=== PATIENT | female | born 1930 | race Caucasian/White ===

== ENCOUNTER 2016-03-23 13:14 | Emergency (ER) | payer MEDICARE ==
[2016-03-23 13:46] VITALS: BP 104/41
--- NOTE | 2016-03-23 14:40 | RAD ---
HISTORY: Fall, right hip pain COMPARISONS: None VIEWS: 3, Frontal view of the pelvis with frontal and frog-leg views of the right hip FINDINGS: BONE DENSITY: There is diffuse osteopenia. BONES: There is no displaced fracture. JOINTS: There is moderate osteoporosis of the right hip. There is mild osteophytosis of the left hip. ALIGNMENT: There is no dislocation. SOFT TISSUES: Unremarkable. OTHER FINDINGS: Degenerative changes are noted of the spine IMPRESSION: OSTEOARTHRITIS. NO RADIOGRAPHIC EVIDENCE FOR HIP FRACTURE. X-RAYS MAY BE NEGATIVE WITH NONDISPLACED HIP FRACTURE, IF THERE IS PERSISTENT CLINICAL CONCERN, RECOMMEND CONSIDERATION OF MRI. IN THE SETTING OF CONTRAINDICATION TO MRI OR LIMITATION IN EMERGENT ACCESS TO MRI, CT WOULD BE SUGGESTED.
--- NOTE | 2016-03-23 14:41 | RAD ---
HISTORY: Fall, pain COMPARISONS: June 17, 2007, CT dated December 22, 2015 VIEWS:1: Single frontal portable view of the chest at 2:15 PM FINDINGS: LINES AND TUBES: None. CARDIOMEDIASTINAL SILHOUETTE: The cardiomediastinal silhouette is normal for portable technique. PLEURA: The costophrenic angles are sharp. No pleural abnormalities are noted. LUNG PARENCHYMA: The lungs are clear. ABDOMEN: Again noted is a large hiatal hernia. BONES AND SOFT TISSUES: No bone or soft tissue abnormalities are noted. IMPRESSION: HIATAL HERNIA. NO ACTIVE CARDIOPULMONARY DISEASE.
--- NOTE | 2016-03-23 14:48 | RAD ---
HISTORY: Fall, right shoulder pain COMPARISONS: None VIEWS: 3], Frontal internal rotation, external rotation, and outlet views of the right shoulder FINDINGS: BONE DENSITY: There is diffuse osteopenia. BONES: There is no displaced fracture. JOINTS: There is osteoarthritis of the AC joint. There is partial effacement of the acromiohumeral interval ALIGNMENT: There is no dislocation. SOFT TISSUES: Unremarkable. OTHER FINDINGS: None. IMPRESSION: 1. OSTEOPENIA. 2. OSTEOARTHRITIS. 3. PARTIAL EFFACEMENT OF THE ACROMIOHUMERAL INTERVAL SUGGESTIVE OF A CHRONIC ROTATOR CUFF INJURY. 4. NO ACUTE OSSEOUS INJURY. THE DEGREE OF OSTEOPENIA MAY MAKE A NONDISPLACED FRACTURE RADIOGRAPHICALLY OCCULT. IF SYMPTOMS PERSIST, RECOMMEND REPEAT IMAGING.
[2016-03-23 15:34] LABS: Hematocrit 37 % (35-47); Mean Corpuscular HGB Conc 33 g/dl (31-36); Mean Corpuscular Hemoglobin 33 pg (27-31); Mean Corpuscular Volume 101 fL (80-97); Mean Platelet Volume 9 um3 (7.4-10.4); Red Blood Count 3.62 10^6/ul (4.0-5.4); Red Cell Distribution Width 13 % (10.5-15); White Blood Count 13.3 10^3/ul (3.5-10.8)
[2016-03-23 15:37] LABS: Urine Bilirubin Negative (Negative); Urine Glucose Negative (Negative); Urine Nitrite Negative (Negative)
--- NOTE | 2016-03-23 15:44 | RAD ---
Indication: RIGHT hip pain post fall. Assess for fracture. Comparison: March 23, 2016 radiographs and July 01, 2015 CT. Technique: Noncontrast CT pelvis. Multiplanar reformation. Report: Loculated hematoma within the subcutaneous tissue plane peripheral to the RIGHT proximal femur measuring up to 8.1 cm AP by 4.0 cm transverse by 9 cm cephalocaudal. Surrounding infiltrative edema or hematoma within the lateral and posterior RIGHT thigh. No additional soft tissue hematoma evident within the [id number]. The RIGHT hip is normally located and without evidence for proximal femur or acetabular fracture. Severe axial joint space narrowing of the RIGHT hip with associated subchondral sclerosis and cystic change as well as marginal osteophytosis. Negative for pelvic fracture or joint diastases. Severe diverticulosis of the visualized colon. Peripheral arterial calcifications. No acute abnormality of the visualized pelvic viscera. IMPRESSION: 1. No CT evidence for RIGHT hip or pelvic fracture. If there is persistent high clinical index of suspicion for occult fracture despite negative CT and radiographs consider MRI for further assessment. 2. Loculated hematoma within the subcutaneous tissue plane peripheral to the RIGHT proximal femur measuring up to 8.1 cm AP by 4.0 cm transverse by 9 cm cephalocaudal. 3. Advanced osteoarthritis of the RIGHT hip.
[2016-03-23 15:52] LABS: Troponin I 0.01 ng/mL (<0.04)
[2016-03-23] MEDS ORDERED: Acetaminophen TAB* 325 MG PO ONE (15:55)
[2016-03-23 15:57] LABS: Albumin 3.5 g/dL (3.2-5.2); Calcium 9.3 mg/dL (8.6-10.3); EGFR African American 61.9 (>60); EGFR Non-African American 48.1 (>60); Globulin 2.4 g/dL (2-4); Potassium 3.7 mmol/L (3.5-5.0); Total Bilirubin 0.5 mg/dL (0.2-1.0); Total Protein 5.9 g/dL (6.4-8.9)
--- NOTE | 2016-03-23 17:10 | ED ---
Rigoberto Abarca Adam, scribed for Donny Dean MD on 03/23/16 at 1346 . Adult Trauma - HPI Summary HPI Summary: She states that she slipped on the ice and fell down 6 steps. She c/o soreness in her right hip and right shoulder. Movement aggravates the pain. She denies LOC and denies head/neck pain. PMHx of HTN and breast cancer. Former tobacco user. - History of Current Complaint Stated Complaint: FALL/RT HIP PAIN Time Seen by Provider: 03/23/16 13:42 Hx Obtained From: Patient Mechanism of Injury: Fall Ambulatory at the Scene: Yes Loss of Consciousness: no loss of consciousness Onset/Duration: Started Hours Ago Onset of Pain: Immediate Onset Severity: Moderate Current Severity: Moderate Location: Abdomen/Pelvis - Right hip, Extremities - Right shoulder Aggravating Factor(s): Movement Alleviating Factor(s): Nothing Associated Signs & Symptoms: Negative: Loss of Consciousness - Allergy/Home Medications Allergies/Adverse Reactions: Allergies Allergy/AdvReac Type Severity Reaction Status Date / Time Lactose Allergy GI Upset Verified 07/01/15 09:10 Sulfa Antibiotics Allergy Swelling Verified 07/01/15 09:10 Of Face,Lips,& Throat PMH/Surg Hx/FS Hx/Imm Hx Endocrine/Hematology History: Denies: Hx Diabetes Cardiovascular History: Reports: Hx Hypertension - on medication, Other Cardiovascular Problems/Disorders - HX CAROTID PROBLEM IN THE PAST, UNSURE WHAT , OK SINCE Denies: Hx Congestive Heart Failure GI History: Reports: Other GI Disorders - LACTOSE ISSUES, RESTRICTED ESOPHAGUS, HX DIVERTICULITIS History: Denies: Hx Dialysis, Hx Kidney Stones, Hx Renal Disease Sensory History: Reports: Hx Cataracts - [facility], Hx Contacts or Glasses, Hx Hearing Aid - [facility] Opthamlomology History: Reports: Hx Cataracts - [facility], Hx Contacts or Glasses - Cancer History Cancer Type, Location and Year: left breast 2002 Hx Chemotherapy: Yes - Hx of radiation and Tamoxifin Hx Radiation Therapy: Yes - BREAST - Surgical History Surgery Procedure, Year, and Place: LEFT BREAST CA LUMPECTOMY, 2002, [facility]. VERICOSE VEINS BILAT, 1996 AND 2001. APPENDECTOMY 1934. [facility] HERNIA 1973. [facility] CATARACTS, 2003. Tonsillectomy - 193; double hernia (right side) 2014 Hx Anesthesia Reactions: No Infectious Disease History: Denies: Traveled Outside the [place] in Last 30 Days - Family History Known Family History: Positive: Other - Breast Cancer - Social History Occupation: Retired Lives: Alone Alcohol Use: Daily Alcohol Amount: 2 DAILY Hx Substance Use: No Substance Use Type: Reports: None Hx Tobacco Use: Yes Smoking Status (MU): Former Smoker Amount Used/How Often: PACK A DAY Have You Smoked in the Last Year: No Review of Systems Positive: Arthralgia - Right hip, right shoulder Negative: Headache, Syncope All Other Systems Reviewed And Are Negative: Yes Physical Exam - Summary Physical Exam Summary: VITAL SIGNS: Reviewed. GENERAL: Patient is a well developed and nourished fragile female who is lying comfortable in the stretcher. Patient is not in any acute respiratory distress. HEAD AND FACE: No signs of trauma. No ecchymosis, hematomas or skull depressions. No sinus tenderness. EYES: PERRLA, EOMI x 2, No injected conjunctiva, no nystagmus. EARS: Hearing grossly intact. Ear canals and tympanic membranes are within normal limits. MOUTH: Oropharynx within normal limits. NECK: Supple, trachea is midline, no adenopathy, no JVD, no carotid bruit, no c- spine tenderness, neck with full ROM. CHEST: Symmetric, no tenderness at palpation LUNGS: Clear to auscultation bilaterally. No wheezing or crackles. CVS: Regular rate and rhythm, S1 and S2 present, no murmurs or gallops appreciated. ABDOMEN: Soft, non-tender. No signs of distention. No rebound no guarding, and no masses palpated. Bowel sounds are normal. EXTREMITIES: Decrease ROM of rihgt hip secondary to pain. No deformity, no shortening of the hip. Right shoulder w/o a deformity of the joint. FROM. NEURO: Alert and oriented x 3. No acute neurological deficits. Speech is normal and follows commands. SKIN: Dry and warm Triage Information Reviewed: Yes Vital Signs On Initial Exam: Initial Vitals BP 104/41 03/23/16 13:33 Vital Signs Reviewed: Yes Diagnostics - Vital Signs Vital Signs Temp Pulse Resp BP Pulse Ox 03/23/16 13:41 99.0 F 77 20 104/41 97 03/23/16 13:39 80 96 03/23/16 13:33 104/41 - Laboratory Result Diagrams: 03/23/16 15:20 03/23/16 15:20 Lab Statement: Any lab studies that have been ordered have been reviewed, and results considered in the medical decision making process. - Radiology HIP/PELVIS Radiology Interpretation Completed By: Radiologist - IMPRESSION: OSTEOARTHRITIS. NO RADIOGRAPHIC EVIDENCE FOR HIP FRACTURE. X-RAYS MAY BE NEGATIVE WITH NONDISPLACED HIP FRACTURE, IF THERE IS PERSISTENT CLINICAL CONCERN , RECOMMEND CONSIDERATION OF MRI. IN THE SETTING OF CONTRAINDICATION TO MRI OR LIMITATION IN EMERGENT ACCESS TO MRI, CT WOULD BE SUGGESTED. CXR Radiology Interpretation Completed By: Radiologist - IMPRESSION: HIATAL HERNIA. NO ACTIVE CARDIOPULMONARY DISEASE. SHOULDER Radiology Interpretation Completed By: Radiologist - IMPRESSION: 1. OSTEOPENIA. 2. OSTEOARTHRITIS. 3. PARTIAL EFFACEMENT OF THE ACROMIOHUMERAL INTERVAL SUGGESTIVE OF A CHRONIC ROTATOR CUFF INJURY. 4. NO ACUTE OSSEOUS INJURY. THE DEGREE OF OSTEOPENIA MAY MAKE A NONDISPLACED FRACTURE RADIOGRAPHICALLY OCCULT. IF SYMPTOMS PERSIST, RECOMMEND REPEAT IMAGING. - CT LOWER EXTREMITY CT Interpretation Completed By: Radiologist - IMPRESSION: 1. No CT evidence for RIGHT hip or pelvic fracture. If there is persistent high clinical index of suspicion for occult fracture despite negative CT and radiographs consider MRI for further assessment. 2. Loculated hematoma within the subcutaneous tissue plane peripheral to the RIGHT proximal femur measuring up to 8.1 cm AP by 4.0 cm transverse by 9 cm cephalocaudal. 3. Advanced osteoarthritis of the RIGHT hip. - EKG 16:08 Cardiac Rate: NL - 71 BPM EKG Rhythm: Sinus Rhythm EKG Interpretation: No ST elevation - Additional Comments Diagnostic Additional Comments: Troponin I - 0.01 Adult Trauma Course/Dx - Course Assessment/Plan: She states that she slipped on the ice and fell down 6 steps. She c/o soreness in her right hip and right shoulder. Movement aggravates the pain. She denies LOC and denies head/neck pain. No trauma to the head or neck. Right shoulder x-ray impression: No acute osseous injury. Right hip x-ray impression: No acute fracture or dislocation. Since patient still with pain therefore I will order a CT of the hip. Hip CT impression shows no evidence of right hip or pelvic fracture. Blood work wnl except for increased WBCs of 13.3 , increase BUN and creatinine and UA shows no UTI. Patient is ambulating in the ED and has only mild pain in the right shoulder. I discussed all my findings and test results with the patient. Patient understands and agrees. Patient was instructed to return to the emergency room immediately if any of the symptoms return or worsens. Patient understands and agrees. Plan of care was discussed with the patient and patient understands and agrees with the plan of care. All questions were answered at patient satisfaction. There were no further complaints or concerns. Patient was instructed to follow up with primary care physician within 3 to 5 days. Patient is hemodynamically stable. Patient is alert and oriented x 3. No acute neurological deficits. - Diagnoses Differential Diagnosis/HQI/PQRI: Positive: Contusion(s), Fracture, Dislocation, Sprain, Strain Provider Diagnoses: Hip contusion, Shoulder contusion, Accidental fall Discharge - Discharge Plan Condition: Stable Disposition: HOME Patient Education Materials: Fall Prevention for Older Adults (ED), Contusion in Adults (ED), Hip Contusion (ED) Referrals: Tiffany Bishop MD [Primary Care Provider] - Additional Instructions: Follow up with Dr. Bishop. The documentation as recorded by the Rigoberto ferrer Adam accurately reflects the service I personally performed and the decisions made by me, Donny Dean MD.
== END 2016-03-23 17:46 | disposition home or self-care (01) ==
LOC: ED 13:14
DX: S70.00XA Contusion of unspecified hip, initial encounter (principal); S40.019A Contusion of unspecified shoulder, initial encounter; M25.551 Pain in right hip; W10.9XXA Fall (on) (from) unspecified stairs and steps, initial encounter; Y93.9 Activity, unspecified; Y92.9 Unspecified place or not applicable; Y99.9 Unspecified external cause status; M85.811 Other specified disorders of bone density and structure, right shoulder; K44.9 Diaphragmatic hernia without obstruction or gangrene; M16.11 Unilateral primary osteoarthritis, right hip
CPT/HCPCS: 36415; 71010; 80053; 81003; 84484; 85025; 93005; 99283

== ENCOUNTER 2016-09-15 06:00 | Inpatient (IN) | payer MEDICARE ==
--- NOTE | 2016-09-08 01:54 | HP ---
PREOPERATIVE HISTORY AND PHYSICAL: DATE OF ADMISSION/SURGERY: 09/15/16 DATE OF OFFICE VISIT: 09/06/16. ATTENDING SURGEON: Tommy Llanos MD. PROCEDURE: Right total shoulder reverse. CHIEF COMPLAINT: Right shoulder pain. HISTORY OF PRESENT ILLNESS: Kalani is an 86-year-old female who presents to clinic with ongoing right shoulder pain due to severe osteoarthritis and massive rotator cuff tear. The patient has failed conservative measures and therefore agreed to undergo a right total shoulder reverse by Dr. Llanos on ____ __ 09/15/16. PAST MEDICAL HISTORY: 1. Agarophobia. 2. Hypertension. 3. GERD. 4. Diverticulosis. 5. Hiatal hernia. 6. Osteoarthritis. 7. Peripheral vascular disease. 8. History of breast cancer treated with radiation and tamoxifen. She is in remission. 9. Overactive bladder. 10. Anxiety. 11. Depression. 12. Fibromuscular dysplasia. 13. History of left wrist fracture. PAST SURGICAL HISTORY: Tonsillectomy and adenoidectomy, inguinal hernia repair bilaterally, superficial vein repair, left breast lumpectomy, cataract removal. The patient denies prior complications with anesthesia. MEDICATIONS: 1. Metoprolol succinate ER 25 mg take one half by mouth everyday. 2. Singulair 10 mg one by mouth everyday. 3. Hydrochlorothiazide 25 mg two by mouth everyday. 4. Lisinopril 10 mg one by mouth everyday. 5. Omeprazole 20 mg one by mouth everyday. 6. Aspirin 81 mg one by mouth everyday. 7. Centrum silver adult 50 one by mouth everyday. 8. Cilostazol 50 mg one daily. ALLERGIES: BACTRIM and SULFA ANTIBIOTICS. FAMILY HISTORY: She denies pertinent family history. 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 She is a former smoker, quit in 1996. She reports occasional alcohol consumption. She denies illegal drug use. REVIEW OF SYSTEMS: General: Negative for fever, chills, night sweats. No known anesthesia problems. HEENT: Negative for headache, lightheadedness, or syncopal episodes. Integumentary: Negative for abrasions, lesions, or open wounds. Cardiothoracic: Negative for chest pain, palpitations, or edema. Positive for hypertension. Pulmonary: Negative for shortness of breath with exertion, chronic cough or COPD. GI: Negative for nausea, vomiting, diarrhea, or constipation. Positive for GERD. : Negative for nocturia, urinary frequency, history of UTI or kidney problems. Musculoskeletal: Positive for current complaint. Neuro: Negative for numbness, tingling, or history of seizure, stroke, or epilepsy. Endocrine: Negative for diabetes or thyroid issues. Heme: Negative for easy bruising, history of bleeding disorder, history of DVT or PE. Infectious Disease: Negative for history of MRSA, hep C, or HIV. PHYSICAL EXAMINATION GENERAL: Well-developed, well-nourished, 86-year-old female in no acute distress. Alert and oriented x3 with appropriate mood and affect. VITALS: Height 64.5, weight 121, blood pressure 124/82, respiratory rate 14. Pain level 3. BMI 20.4. HEENT: Normocephalic, atraumatic. Throat clear. NECK: Supple. PULMONARY: Lungs are clear to auscultation bilaterally. No wheezes, rhonchi or rales. CARDIO: Regular rate and rhythm. S1 and S2. No murmurs, gallops or rubs. No edema. ABDOMEN: Positive bowel sounds, soft, nontender. MUSCULOSKELETAL: Right upper extremity: Skin is intact. No warmth or erythema. Tenderness above the joint line. Forward flexion to 40, abduction to 50, external rotation to 20. +2 radial pulses. +2 ulnar pulses. Sensation is intact to light touch distally. NEUROLOGIC: Alert and oriented x3. Cranial nerves grossly intact. Sensation is intact to light touch. STUDIES: Multiple view x-rays and MRI of the right shoulder revealed osteopenia, full-thickness massive rotator cuff tear, superior migration of the humeral head, and severe glenohumeral joint osteoarthritis. IMPRESSION: Right shoulder severe osteoarthritis and massive rotator cuff tear. PLAN: The patient is scheduled to undergo a right total reverse with Dr. Llanos on 09/15/16. The patient has been cleared by her chuck boner. She will return to the office in 10 to 14 days postop for followup and x-rays. Percocet was prescribed for postop pain management. LAUREN AMIN [id number]/[facility] #: [id number] [facility]
[~2016-09-15 06:00] MED LIST: Buffered Lidocaine 0.9% SYRIN* 5 ML/SYR SYRINGE INTRADERM ONE; Buffered Lidocaine 0.9% SYRIN* 5 ML/SYR SYRINGE ONE; Dexamethasone IV* 4 MG/ML 1 ML (4 MG) IV SLOW PU ONE; Dexamethasone IV* 4 MG/ML 1 ML (4 MG) ONE; Famotidine IV* 10 MG/ML 2 ML (20 mg) IV ONE; Famotidine IV* 10 MG/ML 2 ML (20 mg) ONE; ceFAZolin 2 GM PREMIX(*) 2 GM/50 ML BAG IVPB ONE
[2016-09-15] MEDS ORDERED: Succinylcholine* 20 MG/ML 10 ML VIAL ONE (07:18)
[2016-09-15] MEDS ORDERED: Lidocaine 1% INJ* 10 MG/ML 30 ML SDV ONE ×2 (07:18→08:08)
[2016-09-15] MEDS ORDERED: KETAMINE HCL* 50 MG/ML 10 ML VIAL ONE (07:24)
[2016-09-15] MEDS ORDERED: Bupivacaine 0.25% EPI 200,000* 30 ML SDV ONE (08:08)
[2016-09-15] MEDS ORDERED: Phenylephrine IV* 40 MCG/ML 10 ML SYRINGE ONE (09:00)
[2016-09-15] MEDS ORDERED: Ondansetron INJ* 2 MG/ML VIAL ONE (09:00)
[2016-09-15] MEDS ORDERED: Propofol* 10 MG/ML 20 ML BTL IV PUSH ONE (09:00)
[2016-09-15] MEDS ORDERED: DiMENhydriNATE IV* 50 MG/ML VIAL IV PUSH PRN (09:19)
[2016-09-15] MEDS ORDERED: Rocuronium* 10 MG/ML VIAL ONE (09:22)
[2016-09-15] MEDS ORDERED: Ketorolac INJ* 30 MG/ML 1 ML VIAL ONE (09:45)
[2016-09-15] MEDS ORDERED: Neostigmine Methylsulfate* 2 MG/2 ML SYRINGE ONE (09:48)
[2016-09-15] MEDS ORDERED: Glycopyrrolate IV* 0.2 MG/ML 1 ML VIAL ONE (09:48)
[2016-09-15] MEDS ORDERED: HYDROmorphone* 1 MG/ML 1 ML SYR ONE ×2 (09:50→10:46)
[2016-09-15] MEDS ORDERED: Acetaminophen TAB* 325 MG PO PRN (10:39)
[2016-09-15] MEDS ORDERED: Ondansetron INJ* 2 MG/ML VIAL IV PRN ×2 (10:39→10:44)
[2016-09-15] MEDS ORDERED: Morphine INJ* 2 MG/ML 1 ML SYRINGE IV PRN (10:39)
[2016-09-15] MEDS ORDERED: oxyCODONE/Acetamin 5/325 MG* TAB PO PRN ×2 (10:39)
[2016-09-15] MEDS ORDERED: diPHENhydraMINE IV* 50 MG/ML 1 ml VIAL (BENADRYL) IV PRN (10:39)
[2016-09-15] MEDS ORDERED: oxyCODONE TAB* 5 MG TAB PO PRN (10:39)
[2016-09-15] MEDS ORDERED: Polyethylene Glycol 3350* 17 GM PACKET PO PRN (10:39)
[2016-09-15] MEDS ORDERED: fentaNYL* 50 MCG/ML 2 ML VIAL (100 MCG VIAL) ONE (10:46)
[2016-09-15] MEDS: fentaNYL* 50 MCG/ML 2 ML VIAL (100 MCG VIAL) IV PRN ×3 (10:56→11:51)
[2016-09-15] MEDS: HYDROmorphone* 1 MG/ML 1 ML SYR IV PRN ×2 (11:44→12:12)
--- NOTE | 2016-09-15 12:25 | RAD ---
INDICATION: Right shoulder reverse arthroplasty COMPARISON: March 23, 2016 TECHNIQUE: Routine frontal, and axial views were obtained. FINDINGS: There is reversed right shoulder arthroplasty. The prosthetic components appear well seated. As a cooling jacket in place. IMPRESSION: REVERSED RIGHT SHOULDER ARTHROPLASTY
--- NOTE | 2016-09-15 14:27 | OP ---
CC: PCP, Tiffany Bishop MD * DATE OF OPERATION: 09/15/16 - ROOM #337 DATE OF : 28 SURGEON: Tommy Llanos MD ASSISTANTS: behavioral health assistant: LAUREN Mancilla Second permit review assistant: LAUREN Maynard ANESTHESIOLOGIST: Dr. Sebastian Alcaraz. ANESTHESIA: General. 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 OPERATIVE PROCEDURE: Right shoulder reverse shoulder arthroplasty with open biceps tenodesis. CPT code 95414 and 22754. IMPLANTS USED: Aequalis Reversed II centered glenosphere 36 mm, baseplate 25. A 30 x 25 mm threaded baseplate. A size 3B stem, a reverse insert of 6 mm in the centered humeral stem tray. One Josselyn cable, size 2 mm. COMPLICATIONS: Intraoperative humeral fracture. 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 She has failed conservative management including injection as well as physical therapy. At times, she is unable to take care of herself. She lives by herself and is having difficulties with activities of daily living. Therefore she has elected to proceed with right shoulder reverse shoulder arthroplasty. Risks and benefits were discussed at length to include but are not limited to bleeding, infection, damage to nerves, vessels, surrounding structures, the wound not healing, persistent pain, need for further surgery, risk of anesthesia, incomplete release of symptoms, fracture, dislocation, loss of motion, risk of DVT as well as postop hematoma. After obtaining preoperative risk assessment by her doctor, she has elected to proceed with surgery. DESCRIPTION OF PROCEDURE: The patient was greeted in the preoperative area by the attending surgeon. Correct extremity was marked and consent was confirmed. The patient was then brought back to the operative suite where she was placed in the supine position on the operating table. She then underwent general anesthesia endotracheal intubation after which the patient was positioned in the bed appropriately. All bony prominences were padded. She was placed in a lazy beach chair position. The right shoulder was prepped and draped in usual sterile fashion with a chlorhexidine soap and scrub, alcohol wipe, and a final prep with ChloraPrep. After appropriate surgical pause indicating side, site, procedure and administration of antibiotics, the deltopectoral incision was then made using 15 - blade. The soft tissues were carefully dissected to expose the fat stripe. The cephalic vein was identified and then taken laterally with a deltoid. The deltopectoral groove was explored. The clavipectoral fascia was released and the bursa was identified. The coracoid was identified and a blunt Hohmann was placed superior to that for retraction. The Kolbel was used to retract deltopectoral groove, expose the short head of the biceps as well as the pec insertion, the proximal centimeter was released of the pec tendon and the biceps was tenodesed with heavy nonabsorbable suture. This was tenotomized proximal to that and soft tissue dissection was carried proximally using Metzenbaum scissors to expose the groove and its superior border of the subscap. At this point, the shoulder was gently externally rotated, the circumflex vessels were identified, then suture ligated using a 2-0 Vicryl. Then, carefully in one large sheath the subscap was released using a subscap peel technique, while with gentle external rotation, it released distally enough to expose the inferior neck and bone, and released the proximal portion of the latissimus. The dissection was close to bone and care was taken to retract the soft tissues to prevent any nerve or vessel injury by using a Sullivan. Once this was released, the shoulder was gently dislocated and brought through the wound. There was evidence of a full thickness massive tear at the humerus. There were grade 1-2 changes of humeral head. The sagittal saw was then used to make the neck cut. Once this was done, the starting awl was placed in the appropriate position. The canal was sounded, it was found to be between a size 2 and a size 3 stem with the guide neena set at 20 degrees of retroversion. At this point, the humeral portion was prepared first with the rasp, beginning with the starting broach and then gradually up to a size 2; initially had an excellent purchase at this point it had good fit. The humerus was then reamed and the protection plate was placed. Attention was then directed to the subscap and glenoid. The humerus was positioned back into the shoulder and subscap was identified. The superior gleno and middle glenohumeral ligaments were then carefully released using electrocautery as well as curved Moody scissors. The inferior glenohumeral ligament was also identified and this was released with care on the undersurface of the subscap using the electrocautery device. This allowed for mobilization of the scapula. The anterior aspect of the gleno was identified and the labrum was then carefully removed. The biceps and superior labrum was also removed using electrocautery device. This was carried down from the 12 o'clock to the 5 o'clock position. At this point, the inferior labrum needed to be released and a needle tip Bovie was used with gentle traction using a Sullivan elevator on the inferior sutures with care to prevent any damage to any neurovascular structures. Once this was released, the full aspect of the glenoid was identified. The Sullivan was then used to remove any excess cartilage from the glenoid. The glenoid was found to be quite small. The shoulder was then irrigated to remove any excess soft tissue. At this point , the 25 mm guide was placed inferiorly in the glenoid. The threaded guidewire was drilled bi-cortically. This was then reamed with the size 25 mm reamer to remove the excess soft tissue and to find a good bony bleeding bed. The size 36 mm angle reamer was then hand-reamed for placement of the glenosphere. Once the reaming was complete, a size 8 mm cannulated drill bit was used to drill the central peg and then size 6.5 mm cannulated drill was then used to drill the screw tunnel. The depth was found to be about 30 mm. This screw hole was then tapped and then the size 30 mm x 25 mm threaded baseplate was then placed with excellent purchase. Two interlocking screws were placed superiorly inferiorly. The anterior and posterior ones were not placed due to relatively thin bone. At this point, the glenosphere was then brought to the field and then packed into position. It was secured using the set screw. At this point, attention was directed back to humerus. The humerus is delivered through the wound and the baseplate was removed and the stem was assessed and found to be somewhat loose. As this was being removed , it was found that there was a small fracture in the medial calcar of the humerus. At this point, decision was made to cable this. The [employer] cable system was then brought in with the implant in place but not fully seated, the cable was tensioned and then secured. The excess posterior wire was then cut. This allowed bahai of the fracture fragment. The size 2 implant was impacted again. It was found to sink somewhat deeper, therefore a size 3 was chosen and then impacted into place gently. The centered tray was used to trial and the standard poly, 6 mm poly was used to trial. The shoulder was then gently reduced and taken through range of motion, she was able to forward flex to about 120, abduct to about 100 degrees, externally rotate to about 50 degrees. These were the same as her preoperative motion. Although her preoperative motion, she was only able to forward flex to about 110 passively. The final implants were chosen, brought to the table. The shoulder was gently dislocated and he implants were removed and secured on the back table by the attending surgeon. The decision was made to not repair the subscapularis due to fracture in the anterior aspect of the bone. The final implants were then impacted into position with good purchase. This shoulder was then reduced again and taken through range of motion, it was found to be the same. The wounds were copiously irrigated with sterile saline and a Hemovac drain was then placed. The subscap was gently placed over the wound but again not repaired. The deltopectoral groove was closed with a #2 Tycron suture. The would was irrigated again. The incision was closed in layers with 2-0 Vicryl and 3-0 Monocryl. Sterile dressings were applied. She was placed in a regular sling. The Cryo/Cuff was applied. She was awoken from anesthesia, transferred to the PACU in stable condition. POSTOPERATIVE PLAN: She will be nonweightbearing for 6 weeks. She will be allowed gentle passive forward flexion to 90 degrees. She will be allowed to flex and extend her elbow, wrist, and hand. She will be admitted overnight for observation as well as to monitor the drain. She will receive 24 hours of postoperative antibiotics. She will receive heparin while inhouse, but she will be discharge without any DVT prophylaxis. DVT prophylaxis was considered, but deferred due to no previous personal or family history. I will see the patient back in approximately 10 to 14 days and we will obtain x-rays in the PACU and we will follow her closely for the intraoperative fracture. [id number]/[facility] #: [id number] [facility] MEDICAL CENTERWilbert
[2016-09-15] MEDS: ceFAZolin VIAL(*) 1 GM in NS 0.9% 50 ML* 50 ML IVPB SCH ×2 (15:51→23:55)
[2016-09-15] MEDS ORDERED: Montelukast Sodium TAB* 10 MG PO SCH (21:00)
--- NOTE | 2016-09-16 06:29 | PN ---
Progress Note - Progress Note Date of Service: 09/16/16 Note: POD#1 from R reverse shoulder arthroplasty. Doing well. Pain controlled. In sling with cryocuff. Alert and awake. Temp Pulse Resp BP Pulse Ox 98.4 F 55 20 142/71 98 09/16/16 03:40 09/16/16 03:40 09/16/16 03:40 09/16/16 03:40 09/16/16 03:40 AAOX3. pleasant. NAD. R shoulder with dressing in place. drain in place. SILT about 1st dws, index and long finger, and ulnar aspect of small finger. 2+ radial pulse. A/P POD#1 from R shoulder reverse doing well NWB and no active ROM for 6 weeks. gentle PT but does not need PT at home cont post op abx dvt ppx - heparin while inhouse but no need for discharge due to no prior history of dvt scds d/c drain prior to discharge. drain output 750 as of this am. will recheck in a few hours to make sure not copious then may d/c potential d/c home today.
[2016-09-16 06:49] LABS: Hematocrit 32 % (35-47); Hemoglobin 10.6 g/dl (12.0-16.0)
[2016-09-16 06:54] LABS: BUN/Creatinine Ratio 23.2 (8-20); EGFR African American 59.2 (>60); Potassium 4.1 mmol/L (3.5-5.0)
[2016-09-16] MEDS: ceFAZolin VIAL(*) 1 GM in NS 0.9% 50 ML* 50 ML IVPB SCH (08:21)
[2016-09-16] MEDS ORDERED: Metoprolol Succinate XL TAB* 25 MG PO SCH (09:00)
[2016-09-16] MEDS ORDERED: Hydrochlorothiazide TAB* 25 MG PO SCH (09:00)
[2016-09-16] MEDS ORDERED: Lisinopril TAB* 10 MG PO SCH (09:00)
[2016-09-16] MEDS ORDERED: Omeprazole CAP* 20 MG PO SCH (09:00)
--- NOTE | 2016-09-16 10:51 | PN ---
Progress Note - Progress Note Date of Service: 09/16/16 Note: Patient seen OOB in chair. Worked with PT /OT and needs a little help with ADLs. Family discussing discharge to home with son or short term rehab. Drain output entered incorrectly, it was 75 cc, not 750cc. The drain was discontinued without complication, tip intact, new tega derm applied. Await final discharge plan.
[2016-09-16] MEDS ORDERED: Enoxaparin(*) 30 MG/0.3 ML SYR SUBCUT SCH (11:00)
--- NOTE | 2016-09-16 13:15 | DS ---
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 SURGERY PERFORMED: Right shoulder reverse shoulder arthroplasty with open biceps tenodesis and cabl ing proximal humerus. HOSPITAL COURSE: Patient is an 86-year-old female with persistent shoulder pain and inability to mo ve her shoulder due to rotator cuff arthropathy. She failed conservative management including corti sone injections and physical therapy and was having difficulty with her activities of daily living. She elected to proceed with surgical intervention and was taken to the operating room under the car e of Dr. Llanos for the aforementioned procedure on the date of 09/15/16. She tolerated the procedu re well and left the operating room in stable condition. Postoperatively, she was seen by Physical Therapy and Occupational Therapy, who felt that she would need some help with her activities of rosa maria y living and would not be able to be independent at home. It was discussed with the patient's famil y that she would be able to live with her son for the postoperative period to help her. She is in a greement to this. She had no postoperative complications. Her drain only collected roughly 75 cc o f blood and was discontinued postoperative day #1 without any complications. Her pain was under exc ellent control and she ambulated well with therapy. It was felt she was stable orthopedically for d ischarge to home with her son, 09/16/16. CONDITION ON DISCHARGE: She is afebrile. Her vital signs are stable. Her neurovascular status is intact in the right upper extremity. Her drain was removed without any complications. Her dressing s are clean and dry. PLAN: Discharge to home. She will continue with the Percocet as needed for pain. The shoulder immo bilizer should be worn at all times except off for bathing, dressing, skin care. Therapy will only be allowed to passively flex the shoulder to 90 degrees, otherwise in the sling. She will follow up with Dr. Llanos in the office in 10 to 14 days for an x-ray. If there are any changes in her condi tion, shortness of breath, chest pain, dizziness, increased pain in the shoulder, redness, drainage from her wound, swelling of the extremity, the office will be contacted prior to her scheduled appoi ntment. LAUREN SAWYER [id number]/[facility] #: [id number]
[2016-09-16 14:43] LABS: Mean Platelet Volume 10 um3 (7.4-10.4)
[2016-09-16 15:26] VITALS: BP 140/90
== END 2016-09-16 17:03 | disposition home or self-care (01) | DRG 483 ==
LOC: AA 06:00 → SSU 10:39
PROVIDERS: ADMIT Orthopaedic Surgery; ATTEND Orthopaedic Surgery
PROC: 0RRJ00Z Replacement of Right Shoulder Joint with Reverse Ball and Socket Synthetic Substitute, Open Approach (ICD-10-PCS; principal; 2016-09-15 07:30)
DX: M19.011 Primary osteoarthritis, right shoulder (principal); I73.9 Peripheral vascular disease, unspecified; I10 Essential (primary) hypertension; M96.622 Fracture of humerus following insertion of orthopedic implant, joint prosthesis, or bone plate, left arm; F40.00 Agoraphobia, unspecified; F32.9 Major depressive disorder, single episode, unspecified; F41.9 Anxiety disorder, unspecified; K21.9 Gastro-esophageal reflux disease without esophagitis; K57.90 Diverticulosis of intestine, part unspecified, without perforation or abscess without bleeding; N32.81 Overactive bladder; R29.818 Other symptoms and signs involving the nervous system; M75.101 Unspecified rotator cuff tear or rupture of right shoulder, not specified as traumatic; Y79.2 Prosthetic and other implants, materials and accessory orthopedic devices associated with adverse incidents; Y65.8 Other specified misadventures during surgical and medical care; Y92.234 Operating room of hospital as the place of occurrence of the external cause; Z98.49 Cataract extraction status, unspecified eye; Z88.1 Allergy status to other antibiotic agents; Z88.2 Allergy status to sulfonamides; Z87.891 Personal history of nicotine dependence; Z85.3 Personal history of malignant neoplasm of breast; Z92.3 Personal history of irradiation
CPT/HCPCS: 36415; 80048; 85014; 85018; 85049; 87070; 87073; 87205; 94760; A9270-GY; C1776; J0330; J0690; J1100; J1170; J1650; J1885; J2001; J2405; J2704; J3010

== ENCOUNTER 2017-01-07 11:02 | Emergency (ER) | payer MEDICARE ==
[2017-01-07 11:20] VITALS: BP 151/53
--- NOTE | 2017-01-07 12:13 | UC ---
Ear Complaint HPI - HPI Summary HPI Summary: PT presents with decreased and muffled right ear. Pt stats mild pressure. pt denies fevers, chills. No trauma. No drainage. pt states feels pressure in ear with chewing, mouth opening. No trauma. Pt's medications reviewed this visit - History of Current Complaint Chief Complaint: UCEar Stated Complaint: EAR COMPLAINT Time Seen by Provider: 01/07/17 11:42 Hx Obtained From: Patient, Family/Traveling Accountant ?: No Onset/Duration: Gradual Onset Severity Initially: Mild Severity Currently: Mild Associated Signs/Symptoms: Positive: Hearing Loss, Foreign Body Sensation - Allergies/Home Medications Allergies/Adverse Reactions: Allergies Allergy/AdvReac Type Severity Reaction Status Date / Time Lactose Allergy GI Upset Verified 01/07/17 12:04 Sulfa Antibiotics Allergy Swelling Verified 01/07/17 12:04 Of Face,Lips,& Throat PMH/Surg Hx/FS Hx/Imm Hx Previously Healthy: Yes Cardiovascular History: Hypertension, Other Other Cardiovascular History: peripheral vascular disease GI/ History: Gastroesophageal Reflux - Surgical History Surgical History: Yes Surgery Procedure, Year, and Place: LEFT BREAST [place] [facility] [place] VERICOSE VEINS BILAT, 1996 AND 2001. APPENDECTOMY 1934. LALITA HERNIA 1973. LALITA CATARACTS, 2003. Tonsillectomy - 1935; double hernia (right side) 2014. CARDIAC CATH - NO STENTS -[place] @ [facility] [place] right shoulder - Family History Known Family History: Positive: Other - Breast Cancer - Social History Occupation: Retired Lives: Alone Alcohol Use: None Alcohol Amount: 2 DAILY Substance Use Type: None Smoking Status (MU): Unknown if Ever Smoked Amount Used/How Often: PACK A DAY Have You Smoked in the Last Year: No When Did the Patient Quit Smoking/Using Tobacco: 1996 - Immunization History Most Recent Influenza Vaccination: 2016 Most Recent Pneumonia Vaccination: within last 5 years Review of Systems Constitutional: Negative Skin: Negative ENT: Nasal Discharge, Sinus Congestion, Other - decreased right ear hearing Respiratory: Negative Cardiovascular: Negative All Other Systems Reviewed And Are Negative: Yes Physical Exam Triage Information Reviewed: Yes Appearance: Well-Appearing, No Pain Distress, Well-Nourished Vital Signs: Initial Vital Signs Temp 98.6 F 01/07/17 11:17 Pulse 72 01/07/17 11:17 Resp 16 01/07/17 11:17 BP 151/53 01/07/17 11:17 Pulse Ox 99 01/07/17 11:17 Vital Signs Reviewed: Yes Eye Exam: Normal Eyes: Positive: Conjunctiva Clear ENT: Positive: Other: - right canal - cerumen impaction - pain with attempt to manual removal left TM - slight cerum turbinates inflammed and boggy mmoist no exudate, no erythema Dental Exam: Normal Neck exam: Normal Neck: Positive: Supple, Nontender Respiratory Exam: Normal Respiratory: Positive: Chest non-tender, Lungs clear, Normal breath sounds Cardiovascular Exam: Normal Cardiovascular: Positive: RRR, No Murmur, Pulses Normal Re-Evaluation - Re-Evaluation First Eval Change: Improved - large cerumen impaction removed pt with mild irriation to canal following Pt with + fluid behind TM, landmarks dull Will start amox Ear Complaint Course/Dx - Course Course Of Treatment: PT with left ear pain and pressure. Pt wtih congested cerumen - pain with manual disimpaction -. Will irrigate and reassess. pt and daughter in agreement with plan - Differential Dx/Diagnosis Provider Diagnoses: cerumen impaction. otitis media Discharge - Discharge Plan Condition: Stable Disposition: HOME Prescriptions: Amoxicillin PO (*) [Amoxicillin 500 MG CAP*] 500 mg PO Q12H #14 cap Patient Education Materials: Cerumen Impaction (ED), Otitis Media (ED) Referrals: Tiffany Bishop MD [Primary Care Provider] - Additional Instructions: - okay to take Tylenol every 6 hours for pain - Take antibiotics as prescribed until gone - these may cause diarrhea - Schedule a follow-up appointment with your primary in 7-10 days. Call your doctor or return with questions or concerns
== END 2017-01-07 12:30 | disposition home or self-care (01) ==
LOC: UCEAST 11:02
DX: H61.20 Impacted cerumen, unspecified ear (principal); Z88.2 Allergy status to sulfonamides; I10 Essential (primary) hypertension; I73.9 Peripheral vascular disease, unspecified; K21.9 Gastro-esophageal reflux disease without esophagitis; Z87.891 Personal history of nicotine dependence; H66.90 Otitis media, unspecified, unspecified ear
CPT/HCPCS: 99213; G0463

== ENCOUNTER 2018-03-19 11:39 | Inpatient (IN) | payer MEDICARE ==
--- NOTE | 2018-03-19 11:51 | ED ---
Lower Extremity - HPI Summary HPI Summary: This patient is an 87 year old F referred to [facility] from the [facility] wound clinic accompanied by son with a chief complaint of RLE redness and warmth (acute change to chronic wound) that began yesterday. The patient rates the pain 3/10 in severity. Symptoms aggravated by nothing. Symptoms alleviated by nothing. Patient denies fever and chills. Per son, patient was prescribed two antibiotics and has only been taking one due to allergies. - History of Current Complaint Chief Complaint: EDExtremityLower Stated Complaint: INCREASED INFECTION Time Seen by Provider: 03/19/18 11:42 Hx Obtained From: Patient Onset of Pain: Days Onset/Duration: Days Severity Initially: Mild Severity Currently: Mild Pain Intensity: 3 Pain Scale Used: 0-10 Numeric Timing: Constant Location: Is Discrete @ - R ankle Associated Signs And Symptoms: Negative: Fever Aggravating Factor(s): Nothing Alleviating Factor(s): Nothing - Allergies/Home Medications Allergies/Adverse Reactions: Allergies Allergy/AdvReac Type Severity Reaction Status Date / Time lactose Allergy GI Upset Verified 03/19/18 11:57 Sulfa (Sulfonamide Allergy Swelling Verified 03/19/18 11:57 Antibiotics) Of Face,Lips,& Throat Home Medications: Home Medications Aspirin EC TAB* [Ecotrin EC Low Dose 81 MG*] 81 mg PO DAILY 03/19/18 [History Confirmed 03/19/18] Cefdinir cap * [Cefdinir 300 MG cap (NF)] 300 mg PO BID 03/19/18 [History Confirmed 03/19/18] Cilostazol TAB* [Pletal TAB*] 50 mg PO DAILY 03/19/18 [History Confirmed ] Donepezil TAB* [Aricept 5 MG TAB*] 5 mg PO BEDTIME 03/19/18 [History Confirmed 03/19/18] Hydrochlorothiazide TAB* [Hydrodiuril TAB*] 25 mg PO DAILY 03/19/18 [History Confirmed 03/19/18] Lisinopril TAB* [Prinivil TAB*] 10 mg PO DAILY 03/19/18 [History Confirmed 03/19] Loperamide HCl [Imodium A-D] 2 mg PO BID PRN 03/19/18 [History Confirmed ] Mirabegron (NF) [Myrbetriq (NF)] 25 mg PO QAM 03/19/18 [History Confirmed ] Montelukast Sodium TAB* [Singulair TAB*] 10 mg PO DAILY 03/19/18 [History Confirmed 03/19/18] Multivit-Min/Iron/Folic/Lutein [Centrum Silver Women Tablet] 1 tab PO DAILY 09/28 [History Confirmed 03/19/18] PMH/Surg Hx/FS Hx/Imm Hx Previously Healthy: No Endocrine/Hematology History: Denies: Hx Diabetes, Hx Anemia Cardiovascular History: Reports: Hx Hypertension, Hx Peripheral Vascular Disease - on Pletal, Other Cardiovascular Problems/Disorders - HX CAROTID PROBLEM IN THE PAST, UNSURE WHAT, OK SINCE Denies: Hx Congestive Heart Failure, Hx Pacemaker/ICD GI History: Reports: Hx Gastroesophageal Reflux Disease - omeprazole, Hx Hiatal Hernia, Other GI Disorders - LACTOSE ISSUES, RESTRICTED ESOPHAGUS, HX DIVERTICULITIS Denies: Hx Jaundice History: Denies: Hx Dialysis, Hx Kidney Stones, Hx Renal Disease Musculoskeletal History: Reports: Other Musculoskeletal History - rt rotator cuff injury Sensory History: Reports: Hx Cataracts - LALITA, Hx Contacts or Glasses, Hx Hearing Aid - LALITA Opthamlomology History: Reports: Hx Cataracts - LALTIA, Hx Contacts or Glasses Psychiatric History: Reports: Hx Anxiety - years ago, Hx Depression - somtimes get depressed Denies: Hx Panic Disorder - Cancer History Cancer Type, Location and Year: left breast 2002 Hx Chemotherapy: Yes - Hx of radiation and Tamoxifin Hx Radiation Therapy: Yes - BREAST - Surgical History Surgery Procedure, Year, and Place: LEFT BREAST CA LUM[place]OMY, [place], [facility] [place] VERICOSE VEINS BILAT, 1996 AND 2001. APPENDECTOMY 1934. [facility] HERNIA 1973. LALITA CATARACTS, 2003. Tonsillectomy - 193; double hernia (right side) 2014. CARDIAC CATH - NO STENTS -2004 @ [facility] [place] shoulder replacement right shoulder Hx Anesthesia Reactions: No Infectious Disease History: No Infectious Disease History: Denies: Hx Clostridium Difficile, Hx Hepatitis, Hx Human Immunodeficiency Virus (HIV), Hx of Known/Suspected MRSA, Hx Shingles, Hx Tuberculosis, Hx Known/ Suspected VRE, Hx Known/Suspected VRSA, History Other Infectious Disease, Traveled Outside the [place] in Last 30 Days - Family History Known Family History: Positive: Other - Breast Cancer - Social History Occupation: Retired Lives: Alone Alcohol Use: Occasionally Alcohol Amount: 2 DAILY Hx Substance Use: No Substance Use Type: Reports: None Hx Tobacco Use: Yes Smoking Status (MU): Former Smoker Amount Used/How Often: PACK A DAY Have You Smoked in the Last Year: No Review of Systems Negative: Fever, Chills Skin: Other - Positive erythema and warmth over R ankle All Other Systems Reviewed And Are Negative: Yes Physical Exam - Summary Physical Exam Summary: VITAL SIGNS: Reviewed. GENERAL: Patient is a well-developed and nourished female who is lying comfortable in the stretcher. Patient is not in any acute respiratory distress. HEAD AND FACE: No signs of trauma. No ecchymosis, hematomas or skull depressions. No sinus tenderness. EYES: PERRLA, EOMI x 2, No injected conjunctiva, no nystagmus. EARS: Hearing grossly intact. Ear canals and tympanic membranes are within normal limits. MOUTH: Oropharynx within normal limits. NECK: Supple, trachea is midline, no adenopathy, no JVD, no carotid bruit, no c- spine tenderness, neck with full ROM. CHEST: Symmetric, no tenderness at palpation LUNGS: Clear to auscultation bilaterally. No wheezing or crackles. CVS: Regular rate and rhythm, S1 and S2 present, no murmurs or gallops appreciated. ABDOMEN: Soft, non-tender. No signs of distention. No rebound no guarding, and no masses palpated. Bowel sounds are normal. EXTREMITIES: FROM in all major joints, no edema, no cyanosis or clubbing. R ankle healing wound with erythema, slight discharge, and tenderness on palpation NEURO: Alert and oriented x 3. No acute neurological deficits. Speech is normal and follows commands. SKIN: Dry and warm Triage Information Reviewed: Yes Vital Signs On Initial Exam: Initial Vitals Temp Pulse Resp BP Pulse Ox 97.6 F 62 13 171/79 99 03/19/18 11:42 03/19/18 11:42 03/19/18 11:42 03/19/18 11:42 03/19/18 11:42 Vital Signs Reviewed: Yes Diagnostics - Vital Signs Vital Signs Temp Pulse Resp BP Pulse Ox 03/19/18 11:42 97.6 F 62 13 171/79 99 - Laboratory Result Diagrams: 03/20/18 06:24 03/20/18 06:24 Lab Statement: Any lab studies that have been ordered have been reviewed, and results considered in the medical decision making process. - Additional Comments Diagnostic Additional Comments: US of the RLE reveals, per radiologist, no evidence for RIGHT lower extremity deep venous thrombosis. ED physician has reviewed this radiology report. Lower Extremity Course/Dx - Course Assessment/Plan: This patient is an 87 year old F [facility] [place] [facility] clinic accompanied by son with a chief complaint of RLE redness and warmth (acute change to chronic wound) that began yesterday. The patient rates the pain 3/10 in severity. Symptoms aggravated by nothing. Symptoms alleviated by nothing. Patient denies fever and chills. Per son, patient was prescribed two antibiotics and has only been taking one due to allergies. I discussed the case with Dr. Small for sent from the wound clinic and she reports that there when is getting worse and she is having to outpatient antibiotics. Therefore she started recommends for the patient to be admitted for IV antibiotics with meropenem and Zosyn. Blood work without any significant abnormality except for a slight anemia, use ice 46, CRP is 11.66. Negative for UTI. Right lower extremity ultrasound impression: No evidence for right lower extremity DVT. At this time I discussed again with Dr. Small and she recommends for the patient to be admitted to the hospital services for IV antibiotics. In the ED course the patient was given Zosyn and meropenem. I discussed the physical exam and findings with Dr. Christine from the hospital services was accepted patient for admission. - Diagnoses Differential Diagnosis/HQI/PQRI: Positive: Arthritis, Bursitis, Cellulitis, Infection, Osteomyelitis Provider Diagnoses: Cellulitis, Non-healing wound - Physician Notifications Discussed Care Of Patient With: Soha Small Time Discussed With Above Provider: 12:10 Instructed by Provider To: Other - Consult with Dr. Small (wound care) at 1210. She states the wound has been getting worse. She states she has been seeing the wound for the last two weeks, she reports the patient is failing to follow her PO antibiotics. She strongly recommends the patient be admitted for IV antibiotics with Zosyn with Meropenem. Consult with Dr. Christine (hospitalist) at 1337. He agrees to admit the patient for further evaluation. Discharge - Sign-Out/Discharge Documenting (check all that apply): Patient Departure - Admit to [facility] [place] - Discharge Plan Condition: Stable Disposition: ADMITTED TO [facility] - Billing Disposition and Condition Condition: STABLE Disposition: Admitted to [facility] - Attestation Statements Document Initiated by Jamilaibe: Yes Documenting Scribe: Jasmin Hollis Provider For Whom Kayla is Documenting (Include Credential): Dr. Donny Dean MD Scribe Attestation: IJasmin, scribed for Dr. Donny Dean MD on 03/20/18 at 2049. Scribe Documentation Reviewed: Yes Provider Attestation: The documentation as recorded by the jamilaibJasmin mercado accurately reflects the service I personally performed and the decisions made by me, Dr. Donny Dean MD Status of Scribe Document: Viewed
[2018-03-19] MEDS ORDERED: Piperacillin/Tazobac ADVAN(*) 3.375 GM in NS 0.9% 100 ML* 100 ML IVPB ONE (12:13)
[2018-03-19 12:14] LABS: ABS Basophils 0.1 10^3/ul (0-0.2); ABS Eosinophils 0 10^3/ul (0-0.6); ABS Lymphocytes 1.1 10^3/ul (1.0-4.8); ABS Monocytes 0.7 10^3/ul (0-0.8); ABS Neutrophils 7.5 10^3/ul (1.5-7.7); ABS Nucleated RBC 0 10^3/ul; Eosinophil % 0.5 %; Hematocrit 34 % (35-47); Hemoglobin 11.2 g/dl (12.0-16.0); Lymphocyte % 11.5 %; Mean Corpuscular HGB Conc 33 g/dl (31-36); Mean Corpuscular Hemoglobin 32 pg (27-31); Mean Corpuscular Volume 98 fL (80-97); Mean Platelet Volume 8.5 fL (7.4-10.4); Nucleated Red Blood Cells % 0; Platelet Count 239 10^3/ul (150-450); Red Cell Distribution Width 13 % (10.5-15); White Blood Count 9.4 10^3/ul (3.5-10.8)
--- OUTSIDE RECORDS SUMMARY | 2018-03-19 12:25 | XMS REPORT ---
:1930 External Reference #:[id number] Author Organization [facility] Address [address] [place] [address] Phone [phone] Care Team Providers Name Role Phone Tiffany Bishop Care Team Information Skin Lap Bonder Unavailable Tiffany Bishop Primary Care Physician Unavailable Payers Type Date Identification Numbers Payment Provider Subscriber Medicare Primary Effective: Policy Number: Medicare Sunita Wright 1995 [id number] PayID: [id number] [address] [place] [address] Medigap Part B Effective: Policy Number: Medicare Sunita Wright 1995 [id number] Expires: 2017 PayID: [id number] [address] [place] [address] Medigap Part B Effective: Policy Number: [facility] Kalani Wright 2015 [id number] Options PayID: [id number] [address] [place] [address] Medigap Part B Effective: 2011 Policy Number: [id number] [facility] Kalani Wright Expires: 2015 Group Number: [id number] [address] Group Name: [place] [address] PayID: [id number] Problems Date Description Provider Status Onset: 01/19/2011 Essential hypertension Debra Fay M.D. Active Onset: 01/19/2011 Allergic rhinitis Debra Fay M.D. Active Onset: 07/20/2011 Malaise and fatigue Debra Fay M.D. Active Onset: 07/20/2011 Gastroesophageal reflux disease Debra Fay M.D. Active Onset: 09/11/2012 Allergic condition Tiffany Bishop M.D. Active Onset: 10/23/2012 Cramp in limb Tiffany Bishop M.D. Active Onset: 08/14/2014 Inguinal hernia without Tiffany Bishop M.D. 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 Active Onset: 08/15/2017 Localized, primary osteoarthritis Tiffany Bishop M.D. 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 Active Family History Date Family Member(s) Problem(s) Comments Father due to Natural () - at age 95. Causes Stroke. Mother due to Natural () - at age 95 Causes Number of Children 2 sons, 1 daughter. all healthy. all local, in [facility] and [place]. First Brother Melanoma Joselo Second Brother Obesity lives in [place]. Number of Grandchildren 2 grandchildren--ages 19 and 21 Social History Type Date Description Comments Marital Status Patient is Living Situation 02/13/2014 due to sepsis. Diet Diet is healthy and well balanced--eats lots of vegetables Sleep Typically sleeps 7 hours a night. 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 ETOH Use Some 1/2 cup wine with dinner, no longer having a nightcap. Smoking Patient is a former smoker Recreational Drug Use Denies Drug Use Daily Caffeine Consumes on average 2 cups half decaf. of coffee per day Exercise Type/Frequency 10 minutes of stretching, Current leg lifts, and sit-ups daily, gardening uses the stairs in her house a couple of times daily. Home PT for her arms Allergies, Adverse Reactions, Alerts Date Description Reaction Status Severity Comments Bactrim active 11/02/1999 Sulfa Drugs active Medications Medication Date Status Form Strength Qnty SIG Indications Ordering Provider Clindamycin HCL 02/15 Active Capsules 300mg 30cap 1 by Tiffany Alvarado s mouth Edna, three M.D. times daily Donepezil HCL 01/11 Active Tablets 5mg 30tab 1 by G31.84 Tiffany Alvarado s mouth at Edna, night M.D. Myrbetriq 05/30 Active Tablets ER 25mg 30tab take one R35.0 Tiffany L. 24HR s tablet Edna, by mouth M.D. every morning (inconti nence) Imodium A-D 05/30 Active Capsules 2mg 100ca 2 Tiffany Alvarado ps capsules Edna, by mouth M.D. after 1st loose stool and 1 cap after each addition al loose stool up to max 8 caps per day. Montelukast 05/30 Active Tablets 10mg 90tab 1 by Tiffany Alvarado s mouth Edna, every M.D. day Hydrochlorothiaz 05/08 Active Tablets 12.5mg 180ta Take 2 Tiffany L. bs Tablets Edna, By Mouth M.D. Every Day Cilostazol 01/11 Active Tablets 50mg 90tab take 1 Tiffany Alvarado s tablet [place], by mouth M.D. every day Lisinopril 11/11 Active Tablets 10mg 90tab Take 1 Tiffany Alvarado s Tablet [place], By Mouth M.D. One Time Daily Omeprazole 03/22 Active Capsules 20mg 90cap Take 1 Tiffany Alvarado s Capsule [place], By Mouth M.D. Every Day Asa Ec 05/03 Active 81mg 0unit 1 PO qd Justin S. /2002 osbaldo Ambrose M.D. Centrum Silver Active Tablets 50+Women 1 by Unknown 50+Women /0000 mouth every day Shingrix 08/15 Hx Suspension 50mcg 2unit inject Z23 Tiffany Alvarado Rec s subq. Edna, - repeat M.D. 11/17 injectio /2017 n from 2-6 months after first injectio n Inventory Associate 08/15 Hx evaluate Z00.00 Tiffany L. Evaluation and Ed[place], - treat M.D. 11/17 Inventory Associate evaluati on Physical Therapy 05/30 Hx evaluate R35.0 Tiffany L. and [place], - treat M.D. 11/17 urinary incontin ence Namenda XR 04/26 Hx Caps ER 7mg 30cap 1 by I10 Tiffany Corado. 24HR s mouth Edna, - every M.D. Zostavax 03/29 Hx Solution [id number]/0.6 1unit in ject Tiffany LDaniel Rec 5ML s sq [place], - M.D. 04/26 Mupirocin 06/10 Hx Cream 2% 30gm apply to Acacia affected Serina, - area bid Afnp-C 06/10 x 1 week Cephalexin 06/10 Hx Capsules 500mg 30cap 1 by Acacia s mouth Serina, - tid Afnp-C 06/20 Oxybutynin 04/14 Hx Tablets 5mg Tiffany LDaniel Chloride /2015 Edna, - M.D. 05/30 Detrol LA 04/13 Hx Caps ER 4mg 30cap 1 by Tiffany Alvarado 24HR s mouth [place]na, - daily M.D. 08/15 Trospium 02/26 Hx Tablets 20mg 30tab 1 by N32.81 Tiffany L. Chloride s mouth [place]na, - daily M.D. 03/17 Sanctura 02/12 Hx Tablets 20mg 90tab 1 po at N32.81 Tiffany L. /2014 s hs [place]na, - M.D. 02/26 Physical Therapy 02/12 Hx evaluate Z00.00 Tiffany L. and [place]na, - treat M.D. 06/10 strength 2016 training for seniors to prevent falls. KUB 06/17 Hx abd Tiffany Alavrado /2013 pain, Edna, - divertic M.D. 06/10 ulitis, /2016 constipa tion Levaquin 06/12 Hx Tablets 500mg 10tab 1 po qd s Serina, - Afnp-C 06/22 Cipro 05/20 Hx Tablets 250mg 10tab 1 po bid s Serina, - Afnp-C 06/03 Jobst Stockings 05/02 Hx medium 782.3 Tiffany L. compress Edna, - ion. 2 M.D. 06/10 Trospium 03/31 Hx Tablets 20mg 90tab Take 1 Tiffany L. s Tablet Edna, - By Mouth M.D. 08/14 AT Bedtime Singulair 09/11 Hx Tablets 10mg 30tab Take 1 J30.89 Tiffany L. s Tablet Edna, - By Mouth M.D. 05/30 AT Bedtime Levaquin 06/22 Hx Tablets 500mg 10tab 1 po qd 786.2 Tiffany L. s [place] - M.D. 09/11 Combivent 06/22 Hx Aerosol 18-103mcg/Ac 14.70 2 puffs 786.2 Tiffany L. t 0gm qid Edna - M.D. 08/14 Sanctura 03/07 Hx Tablets 20mg 90tab 1 po at Tiffany L. s hs Edna, - M.D. 03/31 Hydrochlorothiaz 09/22 Hx Tablets 12.5mg 180ta Take 2 Tiffany L. bs Tablets Edna, - By Mouth M.D. 08/15 Day Fluticasone 01/19 Hx Suspension 50mcg/Act 1unit 2 sprays Debra Sneed Propionate s Sebastian Sauceda nostril M.DDaniel 05/24 daily Hydrochlorothiaz 02/17 Hx Tablets 12.5mg 90tab 1 po qd Debra Sneed malou Sebastian Millard M.DDaniel 07/19 Flonase 12/23 Hx Suspension 50mcg/Act 1Mdi 1 sprays Christy to each von - nostril Jairo, 08/14 before M.D. bed Azelaic Acid 11/11 Hx Cream 20% 30gm use as directed von - on Renettabijan, 01/19 rosacea .D. on cheeks Celebrex 04/01 Hx Capsules 200mg 30cap 1 po bid s Sebastian Gill, 09/11 M.D. Cipro 10/23 Hx Tablets 500mg 20tab 1 po bid s for 10 dominick Gill, 09/10 M.D. Flagyl 10/23 Hx Tablets 250mg 21tab 1 po tid s x 7 days bijan, 09/10.D. Nizoral 08/26 Hx Shampoo 2% 4Oz use as directed John, - 2 x week MERCHANDISE EXECUTIVE 08/26 Loprox Shampoo 08/26 Hx Shampoo 1% 4Oz use 5ml, 690.11 John cordero, - allow to MERCHANDISE EXECUTIVE 12/23 in heair 3 min, rinse, use twice weekly for up to 4 weeks Antivert 06/28 Hx Tablets 12.5mg 30tab 1-3 po 386.30 s tid prn John, - MERCHANDISE EXECUTIVE 09/12 Milton Stockings 03/22 Hx Minimum 1pr Over The Compression Knee Sebastian Gill, 09/12.D. DX: Venous Stasis, Edema Detrol LA 02/27 Hx Capsules 4mg 90cap 1 po qd Tiffany Alvarado /Sebastian Mahoney M.D. 03/07 Biaxin 08/09 Hx Tablets 500mg 20tab 1 po bid Thad Phillips /Reji s x10 days Sebastian Uribe M.D. 02/13 Robitussin A-c 08/09 Hx Syrup 100mg;10mg/5 6Floz 1-2 tsp Thad Phillips /Reji ML q 4-4hr Sebastian Uribe M.D. 02/13 Chloroquine 03/07 Hx Tablets 500mg 10tab 1 PO Simon F. Luis s qweSebastian Smyth M.D. 08/09 Ciprofloxacin 03/07 Hx Tablets 500mg 20tab 1 PO bid Simon F. /2005 s Sebastian Schneider M.D. 08/09 Typhoid Oral 03/07 Hx 4unit 1 PO qod Simon F. Vaccine s X 4 Wyatt, - Doses M.D. 08/09 Biaxin 04/01 Hx Tablets 500mg 20tab 1 po bid Acacia s x10 days Sebastian Smalls-Kecia 03/11 HCTZ 11/09 Hx 25mg 90uni 1 po qd Christy /2005 beata Sheikh, 02/17 M.D. Note 11/09 Hx physical Daniela R /2004 therapy Trevon, - for MERCHANDISE EXECUTIVE-C 09/28 acute left ankle sprain rehab Physical Therapy 11/09 Hx treatmen Daniela R t and Trevon, - evaluati MERCHANDISE EXECUTIVE-C 09/28 on and rehab of acute left ankle sprain Loprox 04/08 Hx 30gm apply Nishi /2004 bid for John, - up to 4 MERCHANDISE EXECUTIVE Silvadene 11/04 Hx Cream 50gm apply Thad Phillips Q.D Sebastian Uribe M.D. 08/16 Tamoxifen 06/18 Hx 10mg 180un 1 po bid austen Sheikh, 12/23 M.D. Celebrex 11/07 Hx Tabs 200mg 90tab 1 PO qd Christy /2001 osbaldo Sheikh, 10/23 M.D. Tiazac 11/01 Hx 120mg 90uni 1 PO qam Sebastian Phillips-Kecia 08/09 Tiazac 11/01 Hx 120mg 90uni 1 po qd Christy /2000 beata Sheikh, 11/11 M.D. Evista 06/30 Hx 60mg 90uni 1 PO qd Sebastian Phillips-C 05/03 Zithromax 03/12 Hx 250mg 6unit 2 Tabs Ricardo Eduardo /1998 s Day 1 Sebastian Shukla M.D. 03/17 1 Tab qd Days 2 Thru 5 Bactroban 09/10 Hx 5unit Apply Justin S. /1998 s bid Sebastian Ambrose M.D. 05/19 Robitussin ac 07/23 Hx 5Oz 1-2 TSP Thad J. /1997 PO Q4H Sebastian Uribe M.D. 05/19 Cedax 04/05 Hx 400mg 10uni 1 qd Ricardo Alesha /1997 Sebastian Francois M.D. 04/15 Premarin 03/14 Hx .625mg 90uni 1 PO qd Oswaldo T. Sebastian Malin M.D. 06/30 Provera 03/14 Hx 5mg 90uni 1 PO qd Oswaldo T. Sebastian Malin M.D. 06/30 Doxycycline 03/14 Hx 100mg 20uni 1 PO bid Oswaldo T. Sebastian Malin M.D. 04/05 Detrol LA Hx Caps ER 4mg 1 po qd Unknown /0000 24HR - 08/14 Metoprolol Hx Tablets 25mg take Unknown Tartrate /0000 one-half - tablet 05/30 by mouth daily Immunizations CPT Code Status Date Vaccine Lot # [id number] Given 12/19/2017 High-Dose, Influenza Virus Vacccine-fluzone 65 [id number] and older 09466 Given 12/27/2016 High-Dose, Influenza Virus Vacccine-fluzone 65 [id number] and older 10131 Given 12/30/2015 High-Dose, Influenza Virus Vacccine-fluzone 65 and older 50101 Given 02/12/2015 High-Dose, Influenza Virus Vacccine-fluzone 65 [id number] and older 21646 Given 08/14/2014 Pneumococcal Conjugate Vacc-13 [id number] 61769 Given 03/26/2014 High-Dose, Influenza Virus Vacccine-fluzone 65 and older 45770 Given 12/15/2012 High-Dose, Influenza Virus Vacccine-fluzone 65 [id number] and older 91814 Given 01/17/2012 High-Dose, Influenza Virus Vacccine-fluzone 65 [id number] and older Q2038 Given 01/19/2011 Split Influenza Medicare: Fluzone [id number] 80282 Given 12/23/2009 DO Not Use Split Influenza Virus Vaccine [id number] 95692 Given 02/13/2009 DO Not Use Split Influenza Virus Vaccine [id number] 99057 Given 07/31/2008 Tetanus And Diptheria Adult Preservative Free [id number] >7Yrs 04020 Given 01/19/2008 DO Not Use Split Influenza Virus Vaccine [id number] 20001 Given 12/26/2005 DO Not Use Split Influenza Virus Vaccine [id number] 34261 Given 01/26/2005 DO Not Use Split Influenza Virus Vaccine 66035 Given 04/14/2004 Influenza Virus Vaccine, Live For Intranasla Use 39633 Given 01/14/2003 DO Not Use Split Influenza Virus Vaccine 05871 Given 01/14/2003 DO Not Use Split Influenza Virus Vaccine 13523 Given 01/09/2001 Influenza Immunization 22573 Given 01/09/2001 DO Not Use Split Influenza Virus Vaccine 89194 Given 12/04/2000 Hep A Adlt Immunization 91456 Given 04/18/2000 Hepatitis A Immunization - Adult 72783 Given 04/18/2000 Td Immunization, For Use In Individuals 7 Years Or Older 60499 Given 04/18/2000 Hep A Adlt Immunization 59429 Given 12/21/1999 DO Not Use Split Influenza Virus Vaccine 42306 Given 01/26/1998 Influenza Immunization 14590 Given 03/28/1997 Influenza Immunization 14927 Given 03/28/1997 Influenza Immunization Vital Signs Date Vital Result Comment 02/21/2018 BP Systolic 108 mmHg BP Diastolic 52 mmHg Heart Rate 72 /min Body Temperature 98.5 F Respiratory Rate 17 /min 02/15/2018 BP Systolic 130 mmHg BP Diastolic 70 mmHg Heart Rate 70 /min Body Temperature 98.2 F Respiratory Rate 16 /min Weight 128.00 lb 02/09/2018 BP Systolic 128 mmHg BP Diastolic 78 mmHg Heart Rate 74 /min Body Temperature 98.6 F Respiratory Rate 16 /min Weight 128.00 lb 01/11/2018 BP Systolic 130 mmHg BP Diastolic 80 mmHg Heart Rate 78 /min Body Temperature 97.7 F Respiratory Rate 18 /min Weight 126.00 lb 12/19/2017 BP Systolic 112 mmHg BP Diastolic 60 mmHg Heart Rate 72 /min Body Temperature 98.7 F Respiratory Rate 16 /min Weight 121.00 lb 11/23/2017 BP Systolic 102 mmHg BP Diastolic 68 mmHg Heart Rate 84 /min Body Temperature 98.1 F Respiratory Rate 20 /min Weight 121.38 lb 11/17/2017 BP Systolic 114 mmHg BP Diastolic 72 mmHg Heart Rate 72 /min Body Temperature 98.4 F Respiratory Rate 18 /min Height 64 inches 5'4" 08/15/2017 BP Systolic 110 mmHg BP Diastolic 68 mmHg Heart Rate 66 /min Body Temperature 98.4 F Respiratory Rate 16 /min Height 64 inches 5'4" Weight 126.38 lb BMI (Body Mass Index) 21.7 kg/m2 05/30/2017 BP Systolic 110 mmHg BP Diastolic 72 mmHg Heart Rate 84 /min Body Temperature 98.1 F Respiratory Rate 16 /min Height 64 inches 5'4" Weight 124.00 lb BMI (Body Mass Index) 21.3 kg/m2 03/28/2017 BP Systolic 132 mmHg BP Diastolic 80 mmHg Heart Rate 92 /min Body Temperature 99.2 F Respiratory Rate 15 /min Height 64 inches 5'4" Weight 125.00 lb BMI (Body Mass Index) 21.5 kg/m2 12/27/2016 BP Systolic 106 mmHg BP Diastolic 64 mmHg Heart Rate 72 /min Body Temperature 98.6 F Respiratory Rate 16 /min Height 64 inches 5'4" Weight 126.12 lb BMI (Body Mass Index) 21.6 kg/m2 10/19/2016 BP Systolic 120 mmHg BP Diastolic 80 mmHg Heart Rate 76 /min Body Temperature 98.1 F Respiratory Rate 18 /min Height 64 inches 5'4" Weight 118.00 lb BMI (Body Mass Index) 20.3 kg/m2 08/15/2016 BP Systolic 110 mmHg BP Diastolic 60 mmHg Heart Rate 72 /min Body Temperature 98.4 F Respiratory Rate 16 /min Height 64 inches 5'4" Weight 125.25 lb BMI (Body Mass Index) 21.5 kg/m2 04/26/2016 BP Systolic 110 mmHg BP Diastolic 80 mmHg Heart Rate 68 /min Body Temperature 97.9 F Respiratory Rate 18 /min Height 64 inches 5'4" Weight 123.00 lb BMI (Body Mass Index) 21.1 kg/m2 03/29/2016 BP Systolic 120 mmHg BP Diastolic 80 mmHg Heart Rate 76 /min Body Temperature 98.6 F Respiratory Rate 18 /min Height 64 inches 5'4" Weight 129.00 lb BMI (Body Mass Index) 22.1 kg/m2 01/20/2016 BP Systolic 156 mmHg BP Diastolic 84 mmHg Heart Rate 60 /min Body Temperature 98.2 F Respiratory Rate 16 /min Height 64 inches 5'4" Weight 126.00 lb BMI (Body Mass Index) 21.6 kg/m2 12/21/2015 BP Systolic 110 mmHg BP Diastolic 70 mmHg Heart Rate 68 /min Body Temperature 98.0 F Respiratory Rate 18 /min Height 64 inches 5'4" Weight 126.00 lb BMI (Body Mass Index) 21.6 kg/m2 11/11/2015 BP Systolic 120 mmHg BP Diastolic 74 mmHg Heart Rate 66 /min Body Temperature 97.9 F Respiratory Rate 16 /min Height 64 inches 5'4" 11/03/2015 BP Systolic 110 mmHg BP Diastolic 70 mmHg Heart Rate 68 /min Body Temperature 98.1 F Respiratory Rate 18 /min Height 64 inches 5'4" Weight 127.00 lb BMI (Body Mass Index) 21.8 kg/m2 06/11/2015 BP Systolic 112 mmHg BP Diastolic 64 mmHg Heart Rate 80 /min Body Temperature 98.1 F Respiratory Rate 16 /min Height 64 inches 5'4" Weight 128.25 lb BMI (Body Mass Index) 22.0 kg/m2 02/26/2015 BP Systolic 118 mmHg BP Diastolic 70 mmHg Heart Rate 70 /min Body Temperature 98.1 F Respiratory Rate 16 /min Height 64 inches 5'4" Weight 126.00 lb BMI (Body Mass Index) 21.6 kg/m2 02/12/2015 BP Systolic 120 mmHg BP Diastolic 80 mmHg Heart Rate 80 /min Body Temperature 98.1 F Respiratory Rate 18 /min Height 64 inches 5'4" Weight 126.00 lb BMI (Body Mass Index) 21.6 kg/m2 08/14/2014 BP Systolic 118 mmHg BP Diastolic 80 mmHg Heart Rate 70 /min Body Temperature 98.2 F Respiratory Rate 16 /min Height 64.25 inches 5'4.25" Weight 128.00 lb BMI (Body Mass Index) 21.8 kg/m2 07/08/2013 BP Systolic 110 mmHg BP Diastolic 64 mmHg Heart Rate 70 /min Body Temperature 98.6 F Respiratory Rate 16 /min Height 64.25 inches 5'4.25" Weight 137.50 lb BMI (Body Mass Index) 23.4 kg/m2 2013 BP Systolic 120 mmHg BP Diastolic 80 mmHg Heart Rate 84 /min Body Temperature 99.4 F Respiratory Rate 16 /min Height 64.25 inches 5'4.25" Weight 133.00 lb BMI (Body Mass Index) 22.6 kg/m2 06/12/2013 BP Systolic 110 mmHg BP Diastolic 78 mmHg Heart Rate 76 /min Body Temperature 99.0 F Respiratory Rate 18 /min Height 64.25 inches 5'4.25" Weight 144.00 lb BMI (Body Mass Index) 24.5 kg/m2 06/03/2013 BP Systolic 110 mmHg BP Diastolic 80 mmHg Heart Rate 80 /min Body Temperature 98.4 F Respiratory Rate 16 /min Height 64.25 inches 5'4.25" Weight 144.00 lb BMI (Body Mass Index) 24.5 kg/m2 05/20/2013 BP Systolic 120 mmHg BP Diastolic 74 mmHg Heart Rate 72 /min Body Temperature 97.1 F Respiratory Rate 16 /min Height 64.25 inches 5'4.25" Weight 144.00 lb BMI (Body Mass Index) 24.5 kg/m2 05/02/2013 BP Systolic 118 mmHg BP Diastolic 74 mmHg Heart Rate 68 /min Body Temperature 98.2 F Respiratory Rate 16 /min Height 64.25 inches 5'4.25" Weight 144.00 lb BMI (Body Mass Index) 24.5 kg/m2 10/23/2012 BP Systolic 130 mmHg BP Diastolic 86 mmHg Heart Rate 72 /min Body Temperature 98.1 F Height 64.25 inches 5'4.25" Weight 141.00 lb BMI (Body Mass Index) 24.0 kg/m2 09/11/2012 BP Systolic 120 mmHg BP Diastolic 80 mmHg Heart Rate 66 /min Body Temperature 96.4 F Respiratory Rate 16 /min Height 66 inches 5'6" Weight 141.00 lb BMI (Body Mass Index) 22.8 kg/m2 06/22/2012 BP Systolic 120 mmHg BP Diastolic 70 mmHg Heart Rate 76 /min Body Temperature 98.1 F Height 66 inches 5'6" Weight 144.00 lb BMI (Body Mass Index) 23.2 kg/m2 05/24/2012 BP Systolic 110 mmHg BP Diastolic 70 mmHg Heart Rate 96 /min Body Temperature 99.8 F Height 66 inches 5'6" Weight 140.00 lb BMI (Body Mass Index) 22.6 kg/m2 10/31/2011 BP Systolic 118 mmHg BP Diastolic 60 mmHg Heart Rate 66 /min Body Temperature 99.4 F Height 66 inches 5'6" Weight 144.00 lb BMI (Body Mass Index) 23.2 kg/m2 10/10/2011 BP Systolic 120 mmHg BP Diastolic 80 mmHg Heart Rate 78 /min Body Temperature 99.4 F Height 66 inches 5'6" Weight 146.00 lb BMI (Body Mass Index) 23.6 kg/m2 07/20/2011 BP Systolic 130 mmHg BP Diastolic 64 mmHg Heart Rate 76 /min Height 66 inches 5'6" Weight 148.00 lb BMI (Body Mass Index) 23.9 kg/m2 01/19/2011 BP Systolic 136 mmHg BP Diastolic 80 mmHg Heart Rate 78 /min Body Temperature 98.7 F Height 66 inches 5'6" Weight 150.00 lb BMI (Body Mass Index) 24.2 kg/m2 08/18/2010 BP Systolic 140 mmHg BP Diastolic 72 mmHg Heart Rate 80 /min Height 66 inches 5'6" Weight 147.00 lb BMI (Body Mass Index) 23.7 kg/m2 02/17/2010 BP Systolic 124 mmHg BP Diastolic 70 mmHg Heart Rate 80 /min Body Temperature 98.3 F Height 66 inches 5'6" Weight 149.00 lb BMI (Body Mass Index) 24.0 kg/m2 12/23/2009 BP Systolic 120 mmHg BP Diastolic 70 mmHg Heart Rate 78 /min Body Temperature 97.4 F Height 66 inches 5'6" Weight 151.00 lb BMI (Body Mass Index) 24.4 kg/m2 11/11/2009 BP Systolic 118 mmHg BP Diastolic 60 mmHg Heart Rate 76 /min Body Temperature 98.5 F Height 66 inches 5'6" Weight 150.00 lb BMI (Body Mass Index) 24.2 kg/m2 02/12/2009 BP Systolic 144 mmHg BP Diastolic 84 mmHg Heart Rate 78 /min Body Temperature 97.8 F Weight 156.00 lb 08/12/2008 BP Systolic 110 mmHg BP Diastolic 80 mmHg Heart Rate 76 /min Weight 158.00 lb 10/24/2007 BP Systolic 110 mmHg BP Diastolic 68 mmHg Heart Rate 68 /min Body Temperature 99.3 F Height 66 inches 5'6" Weight 155.00 lb BMI (Body Mass Index) 25.0 kg/m2 09/13/2007 BP Systolic 122 mmHg BP Diastolic 82 mmHg Heart Rate 76 /min Height 66 inches 5'6" Weight 156.00 lb BMI (Body Mass Index) 25.2 kg/m2 08/27/2007 BP Systolic 110 mmHg BP Diastolic 80 mmHg Heart Rate 76 /min Body Temperature 98.7 F Height 66 inches 5'6" Weight 157.00 lb BMI (Body Mass Index) 25.3 kg/m2 06/29/2007 BP Systolic 138 mmHg BP Diastolic 64 mmHg Heart Rate 64 /min Body Temperature 98.8 F Height 66 inches 5'6" Weight 159.00 lb BMI (Body Mass Index) 25.7 kg/m2 02/13/2007 BP Systolic 112 mmHg BP Diastolic 60 mmHg Heart Rate 66 /min Body Temperature 98.9 F Height 66 inches 5'6" Weight 160.00 lb BMI (Body Mass Index) 25.8 kg/m2 08/09/2006 BP Systolic 112 mmHg BP Diastolic 70 mmHg Heart Rate 80 /min Body Temperature 99.3 F Height 66 inches 5'6" Weight 156.00 lb BMI (Body Mass Index) 25.2 kg/m2 05/18/2006 BP Systolic 122 mmHg BP Diastolic 70 mmHg Heart Rate 80 /min Height 66 inches 5'6" Weight 170.00 lb BMI (Body Mass Index) 27.4 kg/m2 03/01/2006 BP Systolic 124 mmHg BP Diastolic 84 mmHg Heart Rate 82 /min Body Temperature 100.0 F Respiratory Rate 15 /min Height 66 inches 5'6" 12/26/2005 BP Systolic 132 mmHg BP Diastolic 70 mmHg Heart Rate 68 /min Height 66 inches 5'6" Weight 160.00 lb BMI (Body Mass Index) 25.8 kg/m2 09/28/2005 BP Systolic 124 mmHg BP Diastolic 68 mmHg Heart Rate 76 /min Height 66 inches 5'6" Weight 159.00 lb BMI (Body Mass Index) 25.7 kg/m2 04/01/2005 BP Systolic 124 mmHg BP Diastolic 64 mmHg Heart Rate 88 /min Body Temperature 100.8 F Height 66 inches 5'6" Weight 158.00 lb BMI (Body Mass Index) 25.5 kg/m2 11/09/2004 BP Systolic 126 mmHg BP Diastolic 82 mmHg Heart Rate 70 /min Respiratory Rate 11 /min Height 66 inches 5'6" 08/16/2004 BP Systolic 130 mmHg BP Diastolic 76 mmHg Heart Rate 72 /min Height 66 inches 5'6" Weight 162.00 lb BMI (Body Mass Index) 26.1 kg/m2 04/08/2004 BP Systolic 124 mmHg BP Diastolic 70 mmHg Body Temperature 98.5 F Height 66 inches 5'6" Weight 158.00 lb BMI (Body Mass Index) 25.5 kg/m2 11/14/2003 BP Systolic 126 mmHg BP Diastolic 76 mmHg Heart Rate 72 /min Body Temperature 98.8 F Height 66 inches 5'6" Weight 158.00 lb BMI (Body Mass Index) 25.5 kg/m2 11/05/2003 BP Systolic 136 mmHg BP Diastolic 80 mmHg Heart Rate 64 /min Body Temperature 97.0 F Height 66 inches 5'6" Weight 158.00 lb BMI (Body Mass Index) 25.5 kg/m2 06/19/2003 BP Systolic 124 mmHg BP Diastolic 64 mmHg Heart Rate 72 /min Body Temperature 98.6 F Height 66 inches 5'6" Weight 158.00 lb BMI (Body Mass Index) 25.5 kg/m2 05/03/2002 BP Systolic 130 mmHg BP Diastolic 80 mmHg Heart Rate 68 /min Body Temperature 99.1 F Height 66 inches 5'6" Weight 164.00 lb BMI (Body Mass Index) 26.5 kg/m2 08/16/2001 BP Systolic 110 mmHg BP Diastolic 68 mmHg Height 67.50 inches 5'7.50" Weight 167.00 lb BMI (Body Mass Index) 26.2 kg/m2 04/17/2001 BP Systolic 160 mmHg R Arm BP Diastolic 110 mmHg R Arm Heart Rate 84 /min Height 67.50 inches 5'7.50" Weight 169.00 lb BMI (Body Mass Index) 26.5 kg/m2 02/08/2001 BP Systolic 130 mmHg BP Diastolic 70 mmHg Heart Rate 60 /min Height 67.50 inches 5'7.50" Weight 166.00 lb BMI (Body Mass Index) 26.0 kg/m2 01/09/2001 BP Systolic 138 mmHg BP Diastolic 80 mmHg Heart Rate 72 /min Height 67.50 inches 5'7.50" Weight 167.00 lb BMI (Body Mass Index) 26.2 kg/m2 11/07/2000 BP Systolic 148 mmHg BP Diastolic 80 mmHg Heart Rate 76 /min Height 67.50 inches 5'7.50" Weight 164.00 lb BMI (Body Mass Index) 25.7 kg/m2 04/18/2000 BP Systolic 146 mmHg R Arm BP Diastolic 110 mmHg R Arm Heart Rate 76 /min Height 67.50 inches 5'7.50" Weight 170.00 lb BMI (Body Mass Index) 26.6 kg/m2 12/21/1999 BP Systolic 138 mmHg BP Diastolic 70 mmHg Height 67.50 inches 5'7.50" Weight 169.00 lb BMI (Body Mass Index) 26.5 kg/m2 11/02/1999 BP Systolic 110 mmHg BP Diastolic 80 mmHg Heart Rate 64 /min Weight 171.00 lb 10/07/1999 BP Systolic 158 mmHg Ra SM Cuff BP Diastolic 80 mmHg Ra SM Cuff Heart Rate 72 /min Reg Height 67.50 inches 5'7.50" Weight 170.00 lb BMI (Body Mass Index) 26.6 kg/m2 07/01/1999 BP Systolic 150 mmHg BP Diastolic 74 mmHg Height 67.50 inches 5'7.50" Weight 173.00 lb BMI (Body Mass Index) 27.1 kg/m2 05/20/1999 BP Systolic 168 mmHg LA SM Cuff BP Diastolic 90 mmHg LA SM Cuff Height 67.50 inches 5'7.50" Weight 171.00 lb BMI (Body Mass Index) 26.8 kg/m2 03/12/1999 Body Temperature 98.0 F Height 67.50 inches 5'7.50" Weight 171.00 lb BMI (Body Mass Index) 26.8 kg/m2 04/05/1997 Body Temperature 98.1 F Height 67.50 inches 5'7.50" Weight 169.00 lb 03/14/1997 Body Temperature 99.1 F Weight 167.00 lb Results Test Date Test Result H/L Range Note Urine Culture And 02/15/2018 Urine Culture SEE RESULT BELOW 1, 2 Sensitivities Ua - Micro (Fma) 02/15/2018 Appearance clear Color yellow Glucose, Urine (Fma/CMC/CTX) neg Bilirubin neg Ketones neg SP Grav 1.020 Blood neg PH 7.0 Protein neg Urobil 0.2 Nitrite neg Leukocytes (Fma/CMC/Centrex) neg Hyaline - /Lpf Granular - /Lpf WBC (Fma,Centrex) 2-3 RBC - Mucus - /Lpf Epith few /Lpf Bacteria trace /Hpf Amorphous - /Lpf Crystals, Fluid (Fma/CMC/CTX) - Z#Comments - Urinalysis Profile 02/02/2018 Urine Color Yellow Urine Appearance Cloudy Urine Specific Hanna 1.012 1.010-1.030 Urine pH 6.0 5-9 Urine Urobilinogen Negative Negative Urine Ketones Negative Negative Urine Protein Negative Negative Urine Leukocytes 1+ Negative Urine Blood Negative Negative Urine Nitrite Positive Negative Urine Bilirubin Negative Negative Urine Glucose Negative Negative Urine White Blood Cell Trace(0-5/hpf) Absent Urine Red Blood Cell Trace(0-2/hpf) Absent Urine Bacteria 1+ Absent Urine Culture And 02/02/2018 Urine Culture SEE RESULT BELOW 3 Sensitivities CBC Auto Diff 02/02/2018 White Blood Count 10.2 10^3/uL 3.5-10.8 Red Blood Count 3.48 10^6/uL Low 4.00-5.40 Hemoglobin 11.6 g/dL Low 12.0-16.0 Hematocrit 35 % 35-47 Mean Corpuscular Volume 100 fL High 80-97 Mean Corpuscular Hemoglobin 33 pg High 27-31 Mean Corpuscular HGB Conc 33 g/dL 31-36 Red Cell Distribution Width 14 % 10.5-15 Platelet Count 184 10^3/uL 150-450 Mean Platelet Volume 9.2 fL 7.4-10.4 Abs Neutrophils 8.2 10^3/uL High 1.5-7.7 Abs Lymphocytes 1.1 10^3/uL 1.0-4.8 Abs Monocytes 0.8 10^3/uL 0-0.8 Abs Eosinophils 0.1 10^3/uL 0-0.6 Abs Basophils 0 10^3/uL 0-0.2 Abs Nucleated RBC 0 10^3/uL Granulocyte % 80.7 % 38-83 Lymphocyte % 10.8 % Low 25-47 Monocyte % 7.4 % High 0-7 Eosinophil % 0.7 % 0-6 Basophil % 0.4 % 0-2 Nucleated Red Blood Cells % 0.1 Comp Metabolic Panel 02/02/2018 Sodium 140 mmol/L 135-145 Potassium 4.1 mmol/L 3.5-5.0 Chloride 107 mmol/L 101-111 Co2 Carbon Dioxide 27 mmol/L 22-32 Anion Gap 6 mmol/L 2-11 Glucose 102 mg/dL High 70-100 Blood Urea Nitrogen 32 mg/dL High 6-24 Creatinine 0.97 mg/dL High 0.51-0.95 BUN/Creatinine Ratio 33.0 High 8-20 Calcium 9.2 mg/dL 8.6-10.3 Total Protein 6.0 g/dL Low 6.4-8.9 Albumin 3.7 g/dL 3.2-5.2 Globulin 2.3 g/dL 2-4 Albumin/Globulin Ratio 1.6 1-3 Total Bilirubin 0.40 mg/dL 0.2-1.0 Alkaline Phosphatase 66 U/L 34-104 Alt 45 U/L 7-52 Ast 25 U/L 13-39 Egfr Non- 54.2 >60 Egfr 65.6 >60 4 Laboratory test finding 02/02/2018 Magnesium 1.7 mg/dL Low 1.9-2.7 Troponin I 0.01 ng/mL <0.04 5 Laboratory test finding 08/21/2017 Folate (Folic Acid), >20.0 ng/mL >3.0 6, 7 Serum Laboratory test finding 08/21/2017 TSH 2.08 mIU/L 0.50-6.00 Vitamin B-12 638 pg/mL 230-1050 Comprehensive Metabolic Prof 08/21/2017 Sodium 143 mEq/L 134-149 Potassium 4.2 mEq/L 3.6-5.5 Chloride 105 mEq/L 94-112 Carbon Dioxide 28 mEq/L 21-32 Glucose 96 mg/dL 70-105 BUN 29 mg/dL High 6-26 Creatinine 1.0 mg/dL 0.6-1.4 BUN/Creat Ratio 29.0 CALC 8.0-36.0 Calcium 9.2 mg/dL 8.6-10.2 Total Protein 6.1 g/dL Low 6.4-8.3 8 Albumin 4.0 g/dL 3.8-5.5 Globulin 2.1 g/dL 2.0-4.8 A/G Ratio 1.9 CALC 0.6-2.3 Alk. Phosphatase 59 U/L 30-110 Alt (SGPT) 14 U/L 7-35 Ast (Sgot) 13 U/L 5-34 Total Bilirubin 0.4 mg/dL 0.2-1.3 GFR Non- 56 ml/min/1.73m^ Low >=60 GFR >60 ml/min/1.73m^ >=60 CBC Electronic Fma 08/21/2017 WBC 7.4 x10^3/UL 4.0-10.0 RBC 3.79 x10^6/UL Low 3.93-6.00 HGB 12.5 g/dL 12.0-17.0 HCT 38 % 35-50 MCV 100.8 fL High 80.0-95.0 MCH 33.0 pg High 25.6-32.2 MCHC 32.7 g/dL 32.2-36.0 RDW-CV 13.4 % 11.6-14.4 PLT 205 x10^3/UL 163-400 MPV 11.3 fL 9.4-12.4 Hilario# 5.29 x10^3/UL 1.56-6.13 Lymph# 1.40 x10^3/UL 1.18-3.74 Anderson# 0.61 x10^3/UL 0.24-0.82 Eos # 0.1 x10^3/UL 0.0-0.5 Baso # 0.02 x10^3/UL 0.01-0.08 Hilario% 71.6 % High 34.0-70.0 Lymph % 18.9 % Low 20.0-52.0 Anderson% 8.2 % 5.0-12.0 Eos% 0.9 % 0.7-7.0 Baso% 0.3 % 0.1-1.2 Lipid Profile 08/21/2017 Cholesterol 195 mg/dL 120-200 Triglycerides 78 mg/dL 30-200 HDL Cholesterol 90 mg/dL High 30-85 LDL (Calculated) 89 CALC 0-129 VLDL Cholesterol 16 mg/dL 0-50 HDL Risk Factor 2.2 CALC 0.0-4.4 Laboratory test finding 12/27/2016 Urine Culture And SEE RESULT BELOW 9 Sensitivities Ua - Micro (a) 12/27/2016 Appearance clear Color yellow Glucose, Urine (Fma/CMC/CTX) neg Bilirubin neg Ketones neg SP Grav 1.015 Blood neg PH 7.0 Protein neg Urobil 0.2 Nitrite neg Leukocytes (Fma/CMC/Centrex) neg Hyaline - /Lpf Granular - /Lpf WBC (Fma,Centrex) 1-2 RBC - Mucus (Fma/CBC/Centrex) - /Lpf Epith occass /Lpf Bacteria trace /Hpf Amorphous (Fma/CMC/Centrex) - /Lpf Crystals, Fluid (Fma/CMC/CTX) - Z#Comments - Ua - Micro (a) 10/19/2016 Appearance clear Color yellow Glucose, Urine (Fma/CMC/CTX) neg Bilirubin neg Ketones neg SP Grav 1.010 Blood neg PH 7.0 Protein neg Urobil 0.2 Nitrite neg Leukocytes (Fma/CMC/Centrex) trace WBC (Fma,Centrex) 4-5 RBC 0-1 Epith occ /Lpf Bacteria 1+ /Hpf Urine Culture Routine 10/19/2016 Urine Culture, Routine Final report 10 , 11 Result 1 See Comment: 10, 12 Laboratory test finding 09/29/2016 Urine Culture And SEE RESULT BELOW 13 Sensitivities Urinalysis Profile 09/29/2016 Urine Color Yellow Urine Appearance Clear Urine Specific Hanna 1.018 1.010-1.030 Urine pH 7.0 5-9 Urine Urobilinogen Negative Negative Urine Ketones Negative Negative Urine Protein Negative Negative Urine Leukocytes Negative Negative Urine Blood Negative Negative * * Negative 14 Urine Nitrite Negative Negative Urine Bilirubin Negative Negative Urine Glucose Negative Negative Comp Metabolic Panel 09/28/2016 Sodium 140 mmol/L 133-145 Potassium 4.4 mmol/L 3.5-5.0 Chloride 105 mmol/L 101-111 Co2 Carbon Dioxide 28 mmol/L 22-32 Anion Gap 7 mmol/L 2-11 Glucose 98 mg/dL 70-100 Blood Urea Nitrogen 30 mg/dL High 6-24 Creatinine 1.00 mg/dL High 0.51-0.95 BUN/Creatinine Ratio 30.0 High 8-20 Calcium 9.5 mg/dL 8.6-10.3 Total Protein 5.7 g/dL Low 6.4-8.9 Albumin 3.3 g/dL 3.2-5.2 Globulin 2.4 g/dL 2-4 Albumin/Globulin Ratio 1.4 1-3 Total Bilirubin 0.30 mg/dL 0.2-1.0 Alkaline Phosphatase 61 U/L 34-104 Alt 13 U/L 7-52 Ast 13 U/L 13-39 Egfr Non- 52.4 >60 Egfr 67.4 >60 15 Laboratory test finding 09/28/2016 C Reactive Protein 2.21 mg/L < 5.00 16 CBC Auto Diff 09/28/2016 White Blood Count 11.1 10^3/uL High 3.5-10.8 Red Blood Count 3.32 10^6/uL Low 4.0-5.4 Hemoglobin 11.2 g/dL Low 12.0-16.0 Hematocrit 35 % 35-47 Mean Corpuscular Volume 104 fL High 80-97 Mean Corpuscular Hemoglobin 34 pg High 27-31 Mean Corpuscular HGB Conc 33 g/dL 31-36 Red Cell Distribution Width 14 % 10.5-15 Platelet Count 296 10^3/uL 150-450 Mean Platelet Volume 10 um3 7.4-10.4 Abs Neutrophils 9.0 10^3/uL High 1.5-7.7 Abs Lymphocytes 1.3 10^3/uL 1.0-4.8 Abs Monocytes 0.6 10^3/uL 0-0.8 Abs Eosinophils 0 10^3/uL 0-0.6 Abs Basophils 0.1 10^3/uL 0-0.2 Abs Nucleated RBC 0.01 10^3/uL Granulocyte % 81.1 % 38-83 Lymphocyte % 12.1 % Low 25-47 Monocyte % 5.7 % 1-9 Eosinophil % 0.3 % 0-6 Basophil % 0.8 % 0-2 Nucleated Red Blood Cells % 0 Laboratory test finding 09/28/2016 Erythrocyte Sed Rate 37 mm/Hr 0-40 CBC No Diff 09/06/2016 White Blood Count 8.5 10^3/uL 3.5-10.8 17 Red Blood Count 3.71 10^6/uL Low 4.0-5.4 17 Hemoglobin 12.9 g/dL 12.0-16.0 17 Hematocrit 39 % 35-47 17 Mean Corpuscular Volume 104 fL High 80-97 17 Mean Corpuscular Hemoglobin 35 pg High 27-31 17 Mean Corpuscular HGB Conc 33 g/dL 31-36 17 Red Cell Distribution Width 14 % 10.5-15 17 Platelet Count 173 10^3/uL 150-450 17 Mean Platelet Volume 10 um3 7.4-10.4 17 Inr/Protime 09/06/2016 Inr 0.90 0.89-1.11 17 Laboratory test finding 09/06/2016 Partial Thrombo 30.2 seconds 26.0- 36.3 17, 18 Time PTT Basic Metabolic Panel 09/06/2016 Sodium 140 mmol/L 133-145 17 Potassium 3.9 mmol/L 3.5-5.0 17 Chloride 106 mmol/L 101-111 17 Co2 Carbon Dioxide 30 mmol/L 22-32 17 Anion Gap 4 mmol/L 2-11 17 Glucose 145 mg/dL High 70-100 17 Blood Urea Nitrogen 31 mg/dL High 6-24 17 Creatinine 1.01 mg/dL High 0.51-0.95 17 BUN/Creatinine Ratio 30.7 High 8-20 17 Calcium 9.2 mg/dL 8.6-10.3 17 Egfr Non- 51.8 >60 17 Egfr 66.7 >60 17, 19 Urinalysis Profile 09/06/2016 Urine Color Yellow 17 Urine Appearance Cloudy 17 Urine Specific Hanna 1.018 1.010-1.030 17 Urine pH 5.0 5-9 17 Urine Urobilinogen Negative Negative 17 Urine Ketones Negative Negative 17 Urine Protein Negative Negative 17 Urine Leukocytes 1+ Negative 17 Urine Blood Negative Negative 17 * * Negative 17, 20 Urine Nitrite Negative Negative 17 Urine Bilirubin Negative Negative 17 Urine Glucose Negative Negative 17 Urine White Blood Cell Trace(0-5/hpf) Absent 17 Urine Red Blood Cell Trace(0-2/hpf) Absent 17 Urine Bacteria 1+ Absent 17 Urine Squamous Epithelial Cell Present Absent 17 Type & Screen 09/06/2016 Patient Blood Type A Positive 17 Antibody Screen NEGATIVE 17 Laboratory test 09/06/2016 Urine Culture And SEE RESULT 17, 21 finding Sensitivities BELOW Laboratory test 06/16/2016 Cytology Non-Glassware Maker SEE RESULT 22, 23 finding BELOW Complete Blood Count 05/30/2016 WBC 6.2 x10^3/UL 3.6-9.6 RBC 3.76 x10^6/UL Low 3.90-5.70 HGB 12.8 g/dL 12.1-17.2 HCT 37 % 36-50 MCV 99.0 fL High 82.2-97.4 MCH 34.2 pg High 27.6-33.3 MCHC 34.4 g/dL 33.0-35.5 RDW 13.4 % 11.6-13.7 PLT 203 x10^3/UL 150-400 MPV 8.5 fL 7.4-10.4 Gran # 4.6 x10^3/UL 1.5-7.2 Lymph# 1.3 x10^3/UL 0.7-4.9 Anderson# 0.3 x10^3/UL 0.1-0.9 Gran % 72.9 % 42.2-75.2 Lymph % 21.4 % 20.5-51.1 Anderson% 5.7 % 1.7-9.3 Laboratory test finding 05/30/2016 TSH 1.64 mIU/L 0.50-6.00 Lipid Profile 05/30/2016 Cholesterol 201 mg/dL High 120-200 Triglycerides 90 mg/dL 30-200 HDL Cholesterol 82 mg/dL 30-85 LDL (Calculated) 101 CALC 0-129 VLDL Cholesterol 18 mg/dL 0-50 HDL Risk Factor 2.5 CALC 0.0-4.4 Comprehensive Metabolic Prof 05/30/2016 Sodium 146 mEq/L 134-149 Potassium 4.1 mEq/L 3.6-5.5 Chloride 105 mEq/L 94-112 Carbon Dioxide 26 mEq/L 21-32 Glucose 105 mg/dL 70-105 BUN 21 mg/dL 6-26 Creatinine 1.0 mg/dL 0.6-1.4 BUN/Creat Ratio 21.0 CALC 8.0-36.0 Calcium 9.3 mg/dL 8.6-10.2 Total Protein 7.5 g/dL 6.4-8.3 Albumin 3.8 g/dL 3.8-5.5 Globulin 3.7 g/dL 2.0-4.8 A/G Ratio 1.0 CALC 0.6-2.3 Alk. Phosphatase 50 U/L 30-110 Alt (SGPT) 13 U/L 7-35 Ast (Sgot) 17 U/L 5-34 Total Bilirubin 0.4 mg/dL 0.2-1.3 GFR Non- 56 ml/min/1.73m^ Low >=60 GFR >60 ml/min/1.73m^ >=60 CBC Auto Diff 03/23/2016 White Blood Count 13.3 10^3/uL High 3.5-10.8 Red Blood Count 3.62 10^6/uL Low 4.0-5.4 Hemoglobin 12.0 g/dL 12.0-16.0 Hematocrit 37 % 35-47 Mean Corpuscular Volume 101 fL High 80-97 Mean Corpuscular Hemoglobin 33 pg High 27-31 Mean Corpuscular HGB Conc 33 g/dL 31-36 Red Cell Distribution Width 13 % 10.5-15 Platelet Count 188 10^3/uL 150-450 Mean Platelet Volume 9 um3 7.4-10.4 Abs Neutrophils 11.0 10^3/uL High 1.5-7.7 Abs Lymphocytes 1.3 10^3/uL 1.0-4.8 Abs Monocytes 0.8 10^3/uL 0-0.8 Abs Eosinophils 0 10^3/uL 0-0.6 Abs Basophils 0.2 10^3/uL 0-0.2 Abs Nucleated RBC 0 10^3/uL Granulocyte % 82.9 % 38-83 Lymphocyte % 9.7 % Low 25-47 Monocyte % 5.9 % 1-9 Eosinophil % 0.1 % 0-6 Basophil % 1.4 % 0-2 Nucleated Red Blood Cells % 0 Urinalysis Profile 03/23/2016 Urine Color Yellow Urine Appearance Cloudy Urine Specific Hanna 1.014 1.010-1.030 Urine pH 6.0 5-9 Urine Urobilinogen Negative Negative Urine Ketones Negative Negative Urine Protein Negative Negative Urine Leukocytes Negative Negative Urine Blood Negative Negative * * Negative 24 Urine Nitrite Negative Negative Urine Bilirubin Negative Negative Urine Glucose Negative Negative Laboratory test finding 03/23/2016 Troponin I 0.01 ng/mL <0.04 25 Comp Metabolic Panel 03/23/2016 Sodium 139 mmol/L 133-145 Potassium 3.7 mmol/L 3.5-5.0 Chloride 106 mmol/L 101-111 Co2 Carbon Dioxide 29 mmol/L 22-32 Anion Gap 4 mmol/L 2-11 Glucose 123 mg/dL High 70-100 Blood Urea Nitrogen 27 mg/dL High 6-24 Creatinine 1.08 mg/dL High 0.51-0.95 BUN/Creatinine Ratio 25.0 High 8-20 Calcium 9.3 mg/dL 8.6-10.3 Total Protein 5.9 g/dL Low 6.4-8.9 Albumin 3.5 g/dL 3.2-5.2 Globulin 2.4 g/dL 2-4 Albumin/Globulin Ratio 1.5 1-3 Total Bilirubin 0.50 mg/dL 0.2-1.0 Alkaline Phosphatase 45 U/L 34-104 Alt 15 U/L 7-52 Ast 18 U/L 13-39 Egfr Non- 48.1 >60 Egfr 61.9 >60 26 Iron And Tibc 01/25/2016 Iron Bind.Cap.(Tibc) 239 g/dL Low 250-450 27 Uibc 175 g/dL 118-369 27 Iron, Serum 64 g/dL 27-139 27 Iron Saturation 27 % 15-55 27 CBC Electronic (Fma) 01/25/2016 WBC 8.2 3.6-9.6 RBC 3.61 Low 3.90-5.70 Hemoglobin (Fma/CMC/CTX) 12.1 g/dL 12.1 - 17.2 Hematocrit (Fma/CMC/CTX) 36.5 % 36.1 - 50.3 Platelets 191 10^3/ul 150-400 Lymph% 22.4 % 17.0-48.0 Mixed% 5.9 Neutrophils % 71.7 Mean Corpuscular Vol 101 High 82.2-97.4 Mean Corpuscular Hemoglobin 33.6 High 27.6-33.3 Mean Corpuscular Hemo Concen 33.2 32.0-36.0 RDW 14.0 High 11.6-13.7 Mean Platelet Volume 8.1 5.5-11.0 Basic Metabolic Profile 12/21/2015 Sodium 139 mEq/L 134-149 Potassium 4.3 mEq/L 3.6-5.5 Chloride 99 mEq/L 94-112 Carbon Dioxide 24 mEq/L 21-32 Glucose 103 mg/dL 70-105 BUN 22 mg/dL 6-26 Creatinine 0.9 mg/dL 0.6-1.4 BUN/Creat Ratio 24.4 CALC 8.0-36.0 Calcium 9.4 mg/dL 8.6-10.2 GFR Non- >60 ml/min/1.73m^ >=60 GFR >60 ml/min/1.73m^ >=60 Laboratory test finding 11/04/2015 TSH 1.20 mIU/L 0.50-6.00 Comprehensive Metabolic Prof 11/04/2015 Sodium 140 mEq/L 134-149 Potassium 3.8 mEq/L 3.6-5.5 Chloride 104 mEq/L 94-112 Carbon Dioxide 29 mEq/L 21-32 Glucose 100 mg/dL 70-105 BUN 28 mg/dL High 6-26 Creatinine 0.9 mg/dL 0.6-1.4 BUN/Creat Ratio 31.1 CALC 8.0-36.0 Calcium 9.1 mg/dL 8.6-10.2 Total Protein 6.4 g/dL 6.4-8.3 28 Albumin 3.7 g/dL Low 3.8-5.5 29 Globulin 2.7 g/dL 2.0-4.8 A/G Ratio 1.4 CALC 0.6-2.3 Alk. Phosphatase 39 U/L 30-110 Alt (SGPT) 13 U/L 7-35 Ast (Sgot) 16 U/L 5-34 Total Bilirubin 0.5 mg/dL 0.2-1.3 GFR Non- >60 ml/min/1.73m^ >=60 GFR >60 ml/min/1.73m^ >=60 Complete Blood Count 11/04/2015 WBC 7.2 x10^3/UL 3.6-9.6 RBC 3.38 x10^6/UL Low 3.90-5.70 HGB 11.7 g/dL Low 12.1-17.2 HCT 34 % Low 36-50 MCV 99.0 fL High 82.2-97.4 MCH 34.7 pg High 27.6-33.3 MCHC 35.0 g/dL 33.0-35.5 RDW 13.2 % 11.6-13.7 PLT 197 x10^3/UL 150-400 MPV 9.2 fL 7.4-10.4 Gran # 5.7 x10^3/UL 1.5-7.2 Lymph# 1.2 x10^3/UL 0.7-4.9 Anderson# 0.3 x10^3/UL 0.1-0.9 Gran % 77.4 % High 42.2-75.2 Lymph % 17.4 % Low 20.5-51.1 Anderson% 5.2 % 1.7-9.3 Lipid Profile 11/04/2015 Cholesterol 207 mg/dL High 120-200 Triglycerides 82 mg/dL 30-200 HDL Cholesterol 67 mg/dL 30-85 LDL (Calculated) 124 CALC 0-129 VLDL Cholesterol 16 mg/dL 0-50 HDL Risk Factor 3.1 CALC 0.0-4.4 Laboratory test finding 11/04/2015 Free T4 0.99 ng/dL 0.75-1.54 30 Vitamin B-12 655 pg/mL 230-1050 Ferritin 62 ng/mL 15-200 Aerobic Bacterial Culture 06/11/2015 Aerobic Bacterial Final report 31 , 32 Culture Result 1 Serratia marcesc <SEE NOTE> 31, 33 Result 2 Raoultella plant <SEE NOTE> 31, 34 Result 3 Skin veronika isola <SEE NOTE> 31, 35 Antimicrobial Susceptibility See Comment: 31, 36 Comprehensive Metabolic Prof 02/12/2015 Sodium 142 mEq/L 134-149 Potassium 3.7 mEq/L 3.6-5.5 Chloride 100 mEq/L 94-112 Carbon Dioxide 29 mEq/L 21-32 Glucose 101 mg/dL 70-105 BUN 30 mg/dL High 6-26 37 Creatinine 0.9 mg/dL 0.6-1.4 BUN/Creat Ratio 33.3 CALC 8.0-36.0 Calcium 9.9 mg/dL 8.6-10.2 Total Protein 6.5 g/dL 6.4-8.3 Albumin 4.5 g/dL 3.8-5.5 Globulin 2.0 g/dL 2.0-4.8 A/G Ratio 2.3 CALC 0.6-2.3 Alk. Phosphatase 51 U/L 30-110 Alt (SGPT) 16 U/L 7-35 Ast (Sgot) 18 U/L 5-34 Total Bilirubin 0.4 mg/dL 0.2-1.3 GFR Non- >60 ml/min/1.73m^ >=60 GFR >60 ml/min/1.73m^ >=60 Laboratory test finding 02/12/2015 TSH 1.03 mIU/L 0.50-6.00 Free T4 1.02 ng/dL 0.75-1.54 Vitamin D25 75 30-100 Folate Level >20.00 ng/mL High 3.00-16.00 Vitamin B-12 697 pg/mL 230-1050 Complete Blood Count 02/12/2015 WBC 7.4 x10^3/UL 3.6-9.6 RBC 3.89 x10^6/UL Low 3.90-5.70 HGB 13.3 g/dL 12.1-17.2 HCT 40 % 36-50 MCV 103.0 fL High 82.2-97.4 MCH 34.1 pg High 27.6-33.3 MCHC 33.1 g/dL 33.0-35.5 RDW 13.9 % High 11.6-13.7 PLT 171 x10^3/UL 150-400 MPV 8.2 fL 7.4-10.4 Gran # 5.4 x10^3/UL 1.5-7.2 Lymph# 1.6 x10^3/UL 0.7-4.9 Anderson# 0.4 x10^3/UL 0.1-0.9 Gran % 72.5 % 42.2-75.2 Lymph % 21.9 % 20.5-51.1 Anderson% 5.6 % 1.7-9.3 Laboratory test finding 08/21/2014 Vitamin B-12 670 pg/mL 230-1050 Folate Level >20.00 ng/mL High 3.00-16.00 Comprehensive Metabolic Prof 08/14/2014 Sodium 141 mEq/L 134-149 Potassium 4.0 mEq/L 3.6-5.5 Chloride 101 mEq/L 94-112 Carbon Dioxide 29 mEq/L 21-32 Glucose 114 mg/dL High 70-105 38 BUN 34 mg/dL High 6-26 39 Creatinine 1.0 mg/dL 0.6-1.4 BUN/Creat Ratio 34.0 CALC 8.0-36.0 Calcium 8.9 mg/dL 8.6-10.2 Total Protein 6.0 g/dL Low 6.4-8.3 40 Albumin 3.8 g/dL 3.8-5.5 Globulin 2.3 g/dL 2.0-4.8 A/G Ratio 1.7 CALC 0.6-2.3 Alk. Phosphatase 39 U/L 30-110 Alt (SGPT) 16 U/L 7-35 Ast (Sgot) 17 U/L 5-34 Total Bilirubin 0.4 mg/dL 0.2-1.3 Laboratory test finding 08/14/2014 TSH 1.28 mIU/L 0.50-6.00 Vitamin D25 61 30-100 Laboratory test finding 08/14/2014 Vitamin D,1,25 Dihydro 63.0 pg/mL 19.9 -79.3 CBC Electronic (Fma) 08/14/2014 WBC 6.7 3.6-9.6 RBC 3.60 Low 3.90-5.70 Hemoglobin (Fma/CMC/CTX) 12.4 g/dL 12.1 - 17.2 Hematocrit (Fma/CMC/CTX) 36.4 % 36.1 - 50.3 Platelets 200 10^3/ul 150-400 Lymph% 23.4 % 17.0-48.0 Mixed% 7.1 Neutrophils % 69.5 Mean Corpuscular Vol 101 High 82.2-97.4 Mean Corpuscular Hemoglobin 34.4 High 27.6-33.3 Mean Corpuscular Hemo Concen 34.1 32.0-36.0 RDW 13.4 11.6-13.7 Mean Platelet Volume 7.8 5.5-11.0 Basic Metabolic Profile 07/24/2013 Sodium 141 mEq/L 134-149 Potassium 4.1 mEq/L 3.6-5.5 Chloride 107 mEq/L 94-112 Carbon Dioxide 27 mEq/L 21-32 Glucose 96 mg/dL 70-105 BUN 29 mg/dL High 6-26 41 Creatinine 1.1 mg/dL 0.6-1.4 BUN/Creat Ratio 26.4 CALC 8.0-36.0 Calcium 9.3 mg/dL 8.6-10.2 Laboratory test finding 05/20/2013 Urine Culture Escherichia coli 42 Ua - Micro (a) 05/20/2013 Appearance CLOUDY Color YELLOW Glucose, Urine (Fma/CMC/CTX) NEG Bilirubin NEG Ketones NEG SP Grav 1.020 Blood MOD PH 7.0 Protein SSA NEG Urobil 0.2 Nitrite NEG Leukocytes (a/CMC/Centrex) LARGE WBC (Fma,Centrex) >100 RBC 10-12 Epith OCC /Lpf Bacteria 2+ /Hpf Laboratory test finding 05/02/2013 TSH 1.79 mIU/L 0.50-6.00 43 Free T4 0.79 ng/dL 0.75-1.54 Comprehensive Metabolic Prof 11/08/2012 Albumin 4.3 g/dL 3.8-5.5 Alk. Phos. 50 U/L 30-110 Alt (SGPT) 14 U/L 7-35 Ast (Sgot) 19 U/L 5-34 BUN 26 mg/dL 6-26 Calcium 9.5 mg/dL 8.6-10.2 Chloride 105 mEq/L 94-112 Creatinine 1.0 mg/dL 0.6-1.4 Carbon Dioxide 27 mEq/L 21-32 Glucose 105 mg/dL 70-105 Sodium 141 mEq/L 134-149 Total Bilirubin 0.6 mg/dL 0.2-1.3 Total Protein 6.3 g/dL 6.3-8.1 Potassium 4.1 mEq/L 3.6-5.5 Globulin 2.1 g/dL 2.0-4.8 A/G Ratio 2.1 Calc 0.6-2.3 BUN/Creat Ratio 25.8 Calc 8.0-36.0 Lipid Profile 11/08/2012 Cholesterol 216 mg/dL High 120-200 HDL 78 mg/dL 30-85 Triglycerides 91 mg/dL 30-200 HDL Risk Factor 2.8 CALC 0.0-4.4 LDL (Calculated) 120 CALC 0-129 VLDL (Calculated) 18 mg/dL 0-50 Laboratory test finding 11/08/2012 Vitamin D, 25 Oh 31.6 ng/mL 30.0- 100.0 44 CBC Electronic (Fma) 11/08/2012 WBC 5.8 3.6-9.6 RBC 3.89 Low 3.90-5.70 Hemoglobin (Fma/CMC/CTX) 13.1 g/dL 12.1 - 17.2 Hematocrit (Fma/CMC/CTX) 39.4 % 36.1 - 50.3 Platelets 260 10^3/ul 150-400 Lymph% 25.0 20.5-51.1 Mixed% 5.6 Neutrophils % 69.4 Mean Corpuscular Vol 101 High 82.2-97.4 45 Mean Corpuscular Hemoglobin 33.7 High 27.6-33.3 Mean Corpuscular Hemo Concen 33.4 32.0-36.0 RDW 12.6 11.6-13.7 Mean Platelet Volume 8.6 6.5-11.0 Comprehensive Metabolic Prof 11/30/2011 Albumin 4.3 g/dL 3.8-5.5 Alk. Phos. 47 U/L 30-110 Alt (SGPT) 15 U/L 7-35 Ast (Sgot) 17 U/L 5-34 BUN 26 mg/dL 6-26 Calcium 8.7 mg/dL 8.6-10.2 Chloride 106 mEq/L 94-112 Creatinine 1.0 mg/dL 0.6-1.4 Carbon Dioxide 25 mEq/L 21-32 Glucose 103 mg/dL 70-105 Sodium 142 mEq/L 134-149 Total Bilirubin 0.4 mg/dL 0.2-1.3 Total Protein 6.2 g/dL Low 6.3-8.1 46 Potassium 4.0 mEq/L 3.6-5.5 Globulin 1.9 g/dL Low 2.0-4.8 A/G Ratio 2.3 Calc High 0.6-2.2 BUN/Creat Ratio 26.0 Calc 8.0-36.0 Laboratory test finding 11/30/2011 B12 411 pg/mL 230-1050 Folate >22.00 ng/mL High 3.00-16.00 TSH 1.71 mIU/L 0.50-6.00 CBC Electronic ([facility]) 11/30/2011 WBC 6.0 3.6-9.6 RBC 3.73 Low 3.90-5.70 47 Hemoglobin (Fma/CMC/CTX) 12.4 g/dL 12.1 - 17.2 Hematocrit (Fma/CMC/CTX) 37.2 % 36.1 - 50.3 Platelets 192 10^3/ul 150-400 Lymph% 26.1 20.5-51.1 Mixed% 5.1 Neutrophils % 68.8 Mean Corpuscular Vol 100 High 82.2-97.4 Mean Corpuscular Hemoglobin 33.1 27.6-33.3 Mean Corpuscular Hemo Concen 33.2 32.0-36.0 RDW 12.9 11.6-13.7 Mean Platelet Volume 9.0 6.5-11.0 Laboratory test finding 11/30/2011 Vitamin D, 25 Oh 31.8 ng/mL 30.0- 100.0 48 Laboratory test finding 11/01/2011 Blood Culture 49 <SEE NOTE> Laboratory test finding 11/01/2011 Stool Culture 50 <SEE NOTE> Bacterial Id Nysdoh <SEE NOTE> 51 CBC Electronic ([facility]) 10/10/2011 WBC 5.5 3.6-9.6 RBC 3.80 Low 3.90-5.70 52 Hemoglobin (Fma/CMC/CTX) 12.5 g/dL 12.1 - 17.2 Hematocrit (Fma/CMC/CTX) 38.5 % 36.1 - 50.3 Platelets 174 10^3/ul 150-400 Lymph% 13.3 Low 20.5-51.1 Mixed% 6.0 Neutrophils % 80.7 Mean Corpuscular Vol 101 High 82.2-97.4 Mean Corpuscular Hemoglobin 32.9 27.6-33.3 Mean Corpuscular Hemo Concen 32.5 32.0-36.0 RDW 13.0 11.6-13.7 Mean Platelet Volume 8.8 6.5-11.0 Laboratory test 10/10/2011 Sed Rate (a/CMC/Centrex) 12mm finding Surgical Pathology 05/24/2011 Surgical Pathology 53 --- <SEE NOTE> Comprehensive 08/25/2010 Albumin 4.1 g/dL 3.8-5.5 Metabolic Prof Alk. Phos. 50 U/L 30-110 Alt (SGPT) 19 U/L 7-35 Ast (Sgot) 19 U/L 5-34 BUN 21 mg/dL 6-26 Calcium 8.8 mg/dL 8.6-10.2 Chloride 102 mEq/L 94-112 Creatinine 0.8 mg/dL 0.6-1.4 Carbon Dioxide 26 mEq/L 21-32 Glucose 98 mg/dL 70-105 Sodium 140 mEq/L 134-149 Total Bilirubin 0.4 mg/dL 0.2-1.3 Total Protein 6.3 g/dL 6.3-8.1 Potassium 3.9 mEq/L 3.6-5.5 Globulin 2.2 g/dL 2.0-4.8 A/G Ratio 1.9 Calc 0.6-2.2 BUN/Creat Ratio 24.7 Calc 8.0-36.0 Laboratory test finding 08/25/2010 TSH 1.96 mIU/L 0.50-6.00 Iron 90 g/dL 60-150 Lipid Profile 08/25/2010 Cholesterol 212 mg/dL High 120-200 HDL 77 mg/dL 30-85 Triglycerides 82 mg/dL 30-200 HDL Risk Factor 2.8 CALC 0.0-4.0 LDL (Calculated) 119 CALC 0-129 VLDL (Calculated) 16 mg/dL 0-50 CBC Electronic ([facility]) 08/25/2010 WBC 9.6 3.6-9.6 RBC 3.91 3.90-5.70 Hemoglobin (a/CMC/CTX) 13.9 g/dL 12.1 - 17.2 Hematocrit (a/CMC/CTX) 39.0 % 36.1 - 50.3 Platelets 171 10^3/ul 150-400 Lymph% 13.3 Low 20.5-51.1 Mixed% 4.6 Neutrophils % 82.1 Mean Corpuscular Vol 100 High 82.2-97.4 Mean Corpuscular Hemoglobin 35.6 High 27.6-33.3 Mean Corpuscular Hemo Concen 35.6 32.0-36.0 RDW 11.8 11.6-13.7 Mean Platelet Volume 9.6 6.5-11.0 Basic Metabolic Profile 02/17/2010 BUN 24 mg/dL 6-26 Calcium 9.5 mg/dL 8.6-10.2 Chloride 105 mEq/L 94-112 Creatinine 0.8 mg/dL 0.6-1.4 Carbon Dioxide 29 mEq/L 21-32 Glucose 122 mg/dL High 70-105 54 Sodium 143 mEq/L 134-149 Potassium 4.4 mEq/L 3.6-5.5 BUN/Creat Ratio 31.2 Calc 8.0-36.0 Basic Metabolic Profile 12/23/2009 BUN 21 mg/dL 6-26 Calcium 9.4 mg/dL 8.6-10.2 Chloride 99 mEq/L 94-112 Creatinine 1.0 mg/dL 0.6-1.4 Carbon Dioxide 24 mEq/L 21-32 Glucose 102 mg/dL 70-105 Sodium 139 mEq/L 134-149 Potassium 4.2 mEq/L 3.6-5.5 BUN/Creat Ratio 21.6 Calc 8.0-36.0 CBC With Electronic Diff Stat 2007 White Blood Count 9.5 CUMM 4.8- 10.8 Abs Basophils 0.1 0-0.2 Abs Eosinophils 0.1 0-0.6 Absolute Neutrophil Count 6.7 1.5-7.7 Abs Lymphs 1.8 1.0-4.8 Abs Mononuclear 0.8 0-0.8 Basophil % 0.9 % 0-2 Hematocrit 36 % 35-47 55 Hemoglobin 12.3 g/dL 12.0-16.0 Eosinophil % 0.8 % 0-6 Gran % 70.8 % 38-83 Lymph % 18.9 % Low 20-45 Mean Corpuscular HGB Cone 34 g/dL 32-36 Mean Corpuscular Hemoglob 33 pg High 27-31 Mean Corpuscular Volume 97 um3 79-97 Mean Platelet Volume 9.6 um3 7.4-10.4 Mononuclear % 8.6 % 1-9 Platelet Count 164 CUMM 150-450 Red Cell Count 3.69 CUMM Low 4.2-5.4 Redcell Distribution WDTH 14 % 10.5-15 Comp Stat 2007 One Over Creatinine 1.25 Anion Gap 3.0 mmol/L 2-11 56 Albumin/Globulin Ratio 1.3 1-3 Albumin 3.4 GM/DL 3.2-5.2 Alkaline Phosphatase 35 U/L 30-110 Alt (SGPT) 20 U/L 14-54 Ast (Sgot) 22 U/L 12-42 BUN 23 mg/dL 6-24 Calcium 10.2 mg/dL 8.7-10.2 Chloride 106 mmol/L 101-111 Co2 (Carbon Dioxide) 37.0 mmol/L High 22-32 Globulin 2.6 GM/DL 2-4 Glucose 114 mg/dL High 70-105 Potassium 4.3 mmol/L 3.5-5.0 Sodium 138 mmol/L 135-145 Bilirubin Total 0.4 mg/dL 0.4-1.5 Total Protein 6.0 GM/DL Low 6.2-8.1 BUN/Creatinine Ratio 28.8 High 8-20 Creatinine 0.8 mg/dL 0.5-1.4 Laboratory test finding 2007 Troponin-I (TnI) 0.02 NG/ML 0-0.06 57 Urinalysis W/Microscopic Stat 2007 Ua Color YELLOW Appearance-Urine CLEAR Bacteria-Urine 1+ Bilirubin-Ur NEGATIVE Negative Blood-Urine 1+ Negative Epith Cells-Ur MODERATE Esterase-Urine 1+ Negative Glucose-Urine NEGATIVE Negative Ketones-Urine NEGATIVE Negative Mucus Urine MODERATE Nitrite POSITIVE Negative PH-Urine 7.0 5-9 Protein-Urine NEGATIVE Negative RBC-Urine 3-5 0-2 Rpdjxiodwyih-Uk-ACH NEGATIVE Negative Specific Hanna-Ur 1.010 1.010-1.030 WBC-Urine TNTC 0-5 Urinalysis W/Microscopic 2007 Ua Color YELLOW Appearance-Urine CLEAR Bilirubin-Ur NEGATIVE Negative Blood-Urine NEGATIVE Negative Epith Cells-Ur MODERATE Esterase-Urine NEGATIVE Negative Glucose-Urine NEGATIVE Negative Ketones-Urine NEGATIVE Negative Mucus Urine MODERATE Nitrite NEGATIVE Negative PH-Urine 6.0 5-9 Protein-Urine NEGATIVE Negative RBC-Urine 0-2 0-2 Vdbyfyzqiidf-Lg-OHO NEGATIVE Negative Specific Hanna-Ur 1.007 Low 1.010-1.030 WBC-Urine 0-2 0-5 Clotest 03/19/2007 Clotest NEG 58 Comprehensive Metabolic Prof 02/13/2007 Albumin 4.0 g/dL 3.8-5.5 Alk. Phos. 42 U/L 30-110 Alt (SGPT) 24 U/L 7-35 Ast (Sgot) 25 U/L 5-34 BUN 23 mg/dL 6-26 Calcium 9.0 mg/dL 8.6-10.2 Chloride 97 mEq/L 94-112 Creatinine 0.8 mg/dL 0.6-1.4 Carbon Dioxide 29 mEq/L 21-32 Glucose 120 mg/dL High 70-105 Sodium 137 mEq/L 134-149 Total Bilirubin 0.3 mg/dL 0.2-1.3 Total Protein 6.8 g/dL 6.3-8.1 Potassium 3.7 mEq/L 3.6-5.5 Globulin 2.8 g/dL 2.0-4.8 A/G Ratio 1.4 Calc 0.6-2.2 BUN/Creat Ratio 30.1 Calc 8.0-36.0 Complete Blood Count 02/13/2007 WBC 7.5 x10\\S\\3/uL 3.6-9.6 Gran# 5.6 x10\\S\\3/uL 1.5-7.2 Gran% 74.7 % 42.2-75.2 HCT 41 % 36-50 HGB 13.8 g/dL 12.1-17.2 Lymph# 1.5 x10\\S\\3/uL 0.7-4.9 Lymph% 20.0 % Low 20.5-51.1 MCH 35.0 pg High 27.6-33.3 MCV 104.7 fL High 82.2-97.4 MCHC 33.4 g/dL 33.0-35.5 Mo# 0.4 x10\\S\\3/uL 0.1-0.9 Mo% 5.3 % 1.7-9.3 MPV 9.4 fL 7.4-10.4 PLT 178 x10\\S\\3/uL 150-400 RBC 3.94 x10\\S\\6/uL 3.90-5.70 RDW 12.7 % 11.6-13.7 Laboratory test finding 02/13/2007 TSH 1.20 mIU/L 0.50-6.00 Ua - Micro (a) 02/13/2007 Appearance CLEAR Color LT YELLOW Glucose, Urine (Fma/CMC/CTX) NEG Bilirubin NEG Ketones NMEG SP Grav 1.015 Blood NEG PH 7.0 Protein NEG Urobil 0.2 Nitrite NEG Leukocytes (a/CMC/Centrex) NEG Hyaline - /Lpf Granular - /Lpf WBC (a,Centrex) 6-8 RBC 1-2 Mucus (Fma/CBC/Centrex) -- /Lpf Epith FEW /Lpf Bacteria 2+ /Hpf Amorphous (Fma/CMC/Centrex) - /Lpf Crystals, Fluid (Fma/CMC/CTX) - Z#Comments - Laboratory test finding 05/22/2006 BUN 24 mg/dL 6-24 Creatinine 05/22/2006 One Over Creatinine 1.25 Creatinine 0.8 mg/dL 0.5-1.4 CBC ([place]) ([facility]) New 12/26/2005 WBC 6.8 3.6-9.6 RBC 3.69 Low 3.90-5.70 Hemoglobin (Fma/CMC/CTX) 12.5 g/dL 12.1 - 17.2 Hematocrit (a/CMC/CTX) 37 % 36.1 - 50.3 Mean Corpuscular Vol 101.5 High 82.2-97.4 Mean Corpuscular Hemaglobin 34.0 High 27.6-33.3 Mean Corpuscular Hemo Concen 33.5 33.0-36.0 RDW 13.0 11.6-13.7 Platelets 168 10^3/ul 150-400 Mean Platelet Volume 9.9 7.4-10.4 Auto-Diff --- Gran# 5.2 1.5-7.2 Lymph# 1.3 0.7-4.9 Monocytes 0.3 10^3/uL 0.1 - 0.9 Gran% 76.0 High 42.2-75.2 Lymph% 19.5 Low 20.5-51.1 Monocytes 4.5 % 1.7-9.3 Laboratory test finding 12/26/2005 TSH (a/CMC/Centrex) 2.15 uIU/ml 0.5- 6.0 B12 (Fma/CMC/Centrex) 642 pg/mL 230-1050 Folic Acid (Fma/CMC/Centrex) >22.00 NG/ML High 3.00-16.00 Comp Metabolic ([facility]) 10/05/2005 Glucose, Serum (Fma/CMC/CTX) 101 mg/dL 70 -105 Female BUN (Fma/CMC/Centrex) 21 mg/dL 6-26 Creatinine, Serum 0.8 mg/dL 0.6-1.4 BUN/Creatinin Ratio 25.5 8.0-36 Sodium 139 134-149 Potassium 3.6 3.6-5.5 Chloride 102 mEq/L 94-112 Co2 26 21-32 Calcium (Fma/CMC/Centrex) 8.7 mg/dL 8.6-10.2 Total Protein 6.3 g/dL 6.3-8.1 Albumin (a/CMCC/Centrex) 3.8 3.8-5.5 Globulin 2.5 2.0-4.8 A/G Ratio (A/G Ratio) 1.5 0.6-2.2 Alkaline Phosphatase (F/C/CTX) 42 U/L 30-110 Alt (SGPT) Female (a) 14 7-35 Ast Sgot 17 U/L 5-34 Bilirubin, Total 0.5 mg/dL 0.2-1.3 Lipid Profile ([facility]) 10/05/2005 Cholesterol (a/CMC/Centrex) 165 mg/dL 120-200 Female Triglyceride 73 mg/dL 30-200 HDL-Chol 72 mg/dL 30-85 LDL, Calculated ([facility]) 78 CALC 0-129 VLDL 15 0-50 HDL Risk Factor ([facility]) 2.3 CALC Low 4.2-7.0 CBC ([place]) ([facility]) New 10/05/2005 WBC 5.6 3.6-9.6 RBC 3.83 Low 3.90-5.70 Hemoglobin (Fma/CMC/CTX) 13.1 g/dL 12.1 - 17.2 Hematocrit (Fma/CMC/CTX) 39 % 36.1 - 50.3 Mean Corpuscular Vol 102.6 High 82.2-97.4 Mean Corpuscular Hemaglobin 34.3 High 27.6-33.3 Mean Corpuscular Hemo Concen 33.4 33.0-36.0 RDW 12.5 11.6-13.7 Platelets 177 10^3/ul 150-400 Mean Platelet Volume 10.0 7.4-10.4 Auto-Diff ---- Gran# 4.1 1.5-7.2 Lymph# 1.2 0.7-4.9 Monocytes 0.4 10^3/uL 0.1 - 0.9 Gran% 72.5 42.2-75.2 Lymph% 21.1 20.5-51.1 Monocytes 6.4 % 1.7-9.3 Basic Metabolic ([facility]) 05/10/2004 Sodium 140 mmol/L 135-145 Potassium 3.7 mmol/L 3.5-5.0 Chloride 105 mmol/L 101-111 Co2 30.0 mmol/L 22-32 Anion Gap 5.0 mmol/L 2-11 Glucose, Serum (Fma/CMC/CTX) 98 mg/dL 70-105 BUN (Fma/CMC/Centrex) 18 mg/dL 6-24 Creatinine (Fma/CMC/CTX) 0.8 mg/dL 0.5-1.4 BUN/Creatinin Ratio 22.5 High 8-20 Calcium (Fma/CMC/Centrex) 9.1 mg/dL 8.7-10.2 PT/Inr (a/CMC) 05/06/2004 PT--Therapy (Protime/Centrex) 11.8 SEC 10.7- 13.1 Inr 0.91 59 Laboratory test finding 05/06/2004 Aptt 26.0 SEC 21.6-31.2 CBC Electronic ([facility]) 05/06/2004 WBC 7.8 CUMM 4.8-10.8 RBC 4.01 CUMM Low 4.2-5.4 Hemoglobin (Fma/CMC/CTX) 13.5 g/dL 12.0-16.0 Hematocrit (Fma/CMC/CTX) 41 % 35-47 Mean Corpuscular Vol 102 UM3 High 79-97 Mean Corpuscular Hemaglobin 34 pg High 27-31 Mean Corpuscular Hemo Concen 33 g/dL 32-36 RDW 13 10.5-15 Platelets 182 CUMM 150-450 Mean Platelet Volume 10.3 7.4-10.4 Granulocytes 75.0 % 38-83 Lymphocytes 18.4 % Low 20-45 Monocytes 5.9 % 1-9 Eosinophil 0.5 0-6 Basophil% 0.2 0-2 Abs Lymphs 1.4 1.0-4.8 Abs Mononuclear 0.5 0-0.8 Abs Grans 5.8 1.5-7.7 Abs Eosinophils 0 0-0.6 Abs Basophils 0 0-0.2 Basic Metabolic ([facility]) 06/11/2002 Sodium 140 mmol/L 135-145 Potassium 5.0 mmol/L 3.5-5.0 Chloride 106 mmol/L 101-111 Co2 31.0 mmol/L 22-32 Glucose, Serum ([facility]/CTX) 104 mg/dL 70-105 BUN ([facility]/Centrex) 23 mg/dL 6-24 Creatinine 0.9 mg/dL 0.5-1.4 BUN/Creatinin Ratio 25.6 High 8-20 Calcium 9.7 mg/dL 8.7-10.2 CBC Electronic ([facility]) 06/11/2002 WBC 6.3 CUMM 4.8-10.8 RBC 3.90 CUMM Low 4.2-5.4 Hemoglobin ([facility]/CTX) 12.9 g/dL 12.0-16.0 Hematocrit 38 % 35-47 Mean Corpuscular Vol 97 UM3 79-97 Mean Corpuscular Hemaglobin 33 pg High 27-31 Mean Corpuscular Hemo Concen 34 g/dL 32-36 RDW 12 10.5-15 Platelets 246 CUMM 150-450 Mean Platelet Volume 10.1 7.4-10.4 Granulocytes 65.0 % 38-83 Lymphocytes 26.0 % 20-45 Monocytes 7.9 % 1-9 Eosinophil 1.0 0-6 Basophil% 0.1 0-2 Abs Lymphs 1.6 1.0-4.8 Abs Mononuclear 0.5 0-0.8 Abs Grans 4.1 1.5-7.7 Abs Eosinophils 0.1 0-0.6 Abs Basophils 0.0 0-0.2 Laboratory test finding 05/09/2002 TSH 1.79 uIU/ml 0.5-6.0 Lipid Profile ([facility]) 05/09/2002 Cholesterol 172 mg/dL 120-200 Triglyceride 64 mg/dL 30-200 HDL-Chol 80 30-85 LDL-Calculated ([facility]) 79 CALC 0-129 VLDL 13 0-50 HDL Risk Factor ([facility]) 2.2 CALC Low 4.2-7.0 Comp Metabolic ([facility]) 05/09/2002 Glucose, Serum ([facility]/CTX) 103 mg/dL 70 -118 BUN ([facility]/Centrex) 22 mg/dL 7-26 Creatinine (a/[facility]/CTX) 0.7 mg/dL 0.6-1.4 BUN/Creatinin Ratio 30.7 8.0-36 Sodium 145 134-149 Potassium 4.3 3.6-5.5 Chloride 99 mEq/L 94-112 Co2 28 21-32 Calcium (a/[facility]/Centrex) 8.9 mg/dL 8.6-10.0 Total Protein 6.4 g/dL 6.3-8.1 Albumin ([facility]rex) 4.1 3.8-5.5 Globulin 2.3 2.0-4.8 A/G Ratio (a/[facility]rex) 1.7 0.6-2.2 Alkaline Phosphatase 50 U/L 30-110 Alt (SGPT) 15 10-40 Ast (Sgot) (a/[facility]rex) 21 U/mL 5-34 Bilirubin, Total 0.5 mg/dL 0.2-1.3 CBC Electronic ([facility]) 05/09/2002 WBC 5.6 3.6-9.6 Lymphocytes 26.6 % 20.5 - 51.1 Monocytes 6.3 % 1.7-9.3 Granulocytes 67.1 % 42.2 - 75.2 Lymphocytes 1.5 10^3/uL 0.7 - 4.9 Monocytes 0.4 10^3/uL 0.1 - 0.9 Granulocytes 3.8 10^3/uL 1.5 - 7.2 RBC 3.97 3.90-5.70 Hemoglobin (a/CMC/CTX) 13.1 g/dL 12.1 - 17.2 Hematocrit (a/CMC/CTX) 39.2 % 36.1 - 50.3 Mean Corpuscular Vol 98.6 High 82.2-97.4 Mean Corpuscular Hemaglobin 32.9 27.6-33.3 Mean Corpuscular Hemo Concen 33.3 33.0-34.8 RDW 12.2 11.6-13.7 Platelets 184. 10^3/ul 150-400 Mean Platelet Volume 9.9 7.4-10.4 Occult Blood (3) 04/06/2001 Occult Blood #1 NEGATIVE 03/27/01 Occult Blood #2 NEGATIVE 03/28/01 Occult Blood #3 POSITIVE 03/29/01 Ua - Micro ([facility] New) 02/07/2001 Appearance CLEAR DK YELLOW Glucose - Bilirubin - Ketones - SP Grav 1.015 Blood TRACE-LYSED PH 7.0 Protein - Urobil 0.2 Nitrite - Leukocytes - Hyaline - /Lpf Granular - /Lpf WBC'S 4-8 RBC'S 0-1 Mucus SMALL AMOUNT /Lpf Epith FEW Bacteria TRACE Amorphous - /Lpf Crystals - /Lpf Laboratory test finding 09/03/1999 B12-Sli 399 pg/mL 211-911 Folic Acid 14.4 NG/ML 3-20 Retic Count 08/31/1999 Reticulocyte Cell Count 1.3 0.5-1.5 Tavo Retic 1.0 % 0.5-1.5 Retic Index 0.7 RBC 3.64 CUMM Low 4.2-5.4 Hematocrit 36 % 35-47 Laboratory test finding 08/31/1999 TSH 1.9 MIU/ML 0.3-4.5 Lipid Profile ([facility]) 08/31/1999 Triglyceride 94 mg/dL 40-200 Cholesterol 173 mg/dL 100-200 HDL-Chol 64 mg/dL High 35-60 Cholesterol / HDL Ratio 2.70 AVG 1-4.97 LDL-Calculated 90 mg/dL 1-130 Comp Metabolic ([facility]) 06/04/1999 Albumin 3.8 GM/DL 3.80 - 5.50 Alkaline Phosphatase 39 U/L 39-130 Bilirubin, Total 0.3 mg/dL 0.2-1.3 BUN 15 mg/dL 10-26 Calcium 7.8 mg/dL 7.4-9.2 Creatinine 0.8 mg/dL 0.6-1.4 Glucose 91 mg/dL 70 - 118 Ast Sgot 15 U/L 9-44 Alt (SGPT) 14 U/L 0-28 Total Protein 6.0 g/dL Low 6.3-8.1 Sodium 144 mEq/L 134-149 Potassium 4.7 mEq/L 3.6-5.5 Chloride 107 mEq/L 94-112 Co2 28 21-32 Globulin 2.2 2.0-4.8 Albumin / Globulin Ratio 1.7 0.6-2.2 BUN/Creatinin Ratio 18.8 8.0-36 Laboratory test finding 06/04/1999 T4 Free 8.52 TSH 2.99 uIU/ML 0.4-4.2 CBC With Manual Diff ([facility]) 03/09/1999 WBC 10.8 CUMM 4.8-10.8 RBC 3.67 CUMM Low 4.2-5.4 Hemoglobin 12.3 g/dL 12.0-16.0 Hematocrit 37 % 35-47 Mean Corpuscular Vol 100 um3 High 79-97 Mean Corpuscular Hemaglobin 34 pg High 27-31 Mean Corpuscular Hemo Concen 34 g/dL 32-36 RDW 12 % 10.5-15 Platelets 223 CUMM 150-450 Mean Platelet Volume 9.4 um3 7.4-10.4 Poly From [facility] 71 38-83 Band N/A 0-8 Lymph From [facility] 21 5-47 Anderson From [facility] 6 0-13 Eos From [facility] N/A 0-6 Atypical Lymph 2 0-6 Morphology N/A Basophils N/A 1 [id number] [facility]ren[place] top 2 SEE RESULT BELOW Name: KALANI WRIGHT Harleen : [address]: Tiffany Bishop MD Acct: [id number] Unit: [id number] AGE: 87 Location: [facility] Re02/15/18 SEX: F Status: REG REF SPEC: [id number] RICHELLE: 02/15/18 [facility] [address]: Tiffany Bishop MD REQ: [id number] RECD: 02/15/18 STATUS: COMP _ SOURCE: URINE SPDESC: ORDERED: Urine Culture COMMENTS: [id number] [facility] Urine Source: Random Procedure Result Reported Site Urine Culture Final 02/16/18- 1605 ML No growth of clinically significant organisms * ML - Main Lab . END OF REPORT DEPARTMENT OF PATHOLOGY, [address] [place] [address] Ricardo Goode M.D. Director [facility] # [id number] 3 SEE RESULT BELOW Name: KALANI WRIGHT : [address]: Nino Whatley MD Acct: [id number] Unit: [id number] AGE: 87 Location: ED Re02/02/18 SEX: F Status: REG ER SPEC: [id number] RICHELLE: 02/02/18 [facility] [address]: Geovanny AGUILAR REQ: [id number] RECD: 02/02/18 STATUS: COMP DAVIAN DR: Tiffany Bishop MD _ SOURCE: URINE SPDESC: ORDERED: Urine Culture Procedure Result Reported Site Urine Culture Final 02/04/18- 0746 ML Organism 1 ESCHERICHIA COLI [place] Count >100,000 (Many) CFU/ML 1. ESCHERICHIA COLI M.I.C. RX --------- ------ Ampicillin >=32 R Cefazolin <=4 S Cefepime <=1 S Ceftriaxone <=1 S Ciprofloxacin <=0.25 S Gentamicin <=1 S Levofloxacin 1 S Meropenem <=0.25 S Nitrofurantoin <=16 S Tetracycline >=16 R Pipercillin/Tazobactam <=4 S Trimethoprim/Sulfamethoxazole >=320 R Amoxicillin/Clavulanic Acid 4 S Aztreonam <=1 S Contact the Microbiology Department for any additional antibiotic reporting. * ML - Main Lab . END OF REPORT DEPARTMENT OF PATHOLOGY, [address] [place] [address] Ricardo Goode M.D. Director [facility] # [id number] 4 Because ethnic data is not always readily available, this report includes an eGFR for both -Americans and non- Americans. The National Kidney Disease Education Program (NKDEP) does not endorse the use of the MDRD equation for patients that are not between the ages of 18 and 70, are , have extremes of body size, muscle mass, or nutritional status, or are non- or non-. According to the National Kidney Foundation, irrespective of diagnosis, the stage of the disease is based on the level of kidney function: Stage Description GFR(mL/min/1.73 m(2)) 1 Kidney damage with normal or decreased GFR 90 2 Kidney damage with mild decrease in GFR 60-89 3 Moderate decrease in GFR 30-59 4 Severe decrease in GFR 15-29 5 Kidney failure <15 (or dialysis) 5 Troponin-I testing on Plasma Separator Tubes (PST) has a known false positive rate of 0.20-0.40%. All positive troponins reflex immediate secondary confirmatory testing. 6 1SST 7 A serum folate concentration of less than 3.1 ng/mL is considered to represent clinical deficiency. 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 Suggest resubmission. * ML - MAIN LAB ([facility]) . END OF REPORT * ML=Testing performed at Main Lab DEPARTMENT OF PATHOLOGY, [address] [place] [address] Ricardo Goode M.D. Director [facility] # [id number] 10 SRC:urine 1 richter top 11 Source of Specimen: urine 1 richter top 12 Source of Specimen: urine 1 richter top Mixed urogenital veronika Less than 10,000 colonies/mL 13 SEE RESULT BELOW Name: KALANI WRIGHT : [address]: Becki AGUILAR Acct: [id number] Unit: [id number] AGE: 86 Location: [facility] Re09/29/16 SEX: F Status: REG REF SPEC: [id number] RICHELLE: 09/29/16-1130 [facility] [address]: Becki AGUILAR REQ: [id number] RECD: 09/29/16 STATUS: AYAAN MARCELO DR: Tiffany Bishop MD _ [facility]: Urine Culture Procedure Result Reported Site Urine Culture Final 09/30/16- 1311 ML No growth of clinically significant organisms * ML - MAIN LAB ([facility]) . END OF REPORT * ML=Testing performed at Main Lab DEPARTMENT OF PATHOLOGY, [address] [place] [address] Ricardo Goode M.D. Director [facility] # [id number] 14 *Ascorbic acid is present which may interfere with detection of blood. 15 Because ethnic data is not always readily available, this report includes an eGFR for both -Americans and non- Americans. The National Kidney Disease Education Program (NKDEP) does not endorse the use of the MDRD equation for patients that are not between the ages of 18 and 70, are , have extremes of body size, muscle mass, or nutritional status, or are non- or non-. According to the National Kidney Foundation, irrespective of diagnosis, the stage of the disease is based on the level of kidney function: Stage Description GFR(mL/min/1.73 m(2)) 1 Kidney damage with normal or decreased GFR 90 2 Kidney damage with mild decrease in GFR 60-89 3 Moderate decrease in GFR 30-59 4 Severe decrease in GFR 15-29 5 Kidney failure <15 (or dialysis) 16 Acute inflammation: >10.00 17 AA 09/15 18 AA 09/15 19 Because ethnic data is not always readily available, this report includes an eGFR for both -Americans and non- Americans. The National Kidney Disease Education Program (NKDEP) does not endorse the use of the MDRD equation for patients that are not between the ages of 18 and 70, are , have extremes of body size, muscle mass, or nutritional status, or are non- or non-. According to the National Kidney Foundation, irrespective of diagnosis, the stage of the disease is based on the level of kidney function: Stage Description GFR(mL/min/1.73 m(2)) 1 Kidney damage with normal or decreased GFR 90 2 Kidney damage with mild decrease in GFR 60-89 3 Moderate decrease in GFR 30-59 4 Severe decrease in GFR 15-29 5 Kidney failure <15 (or dialysis) 20 *Ascorbic acid is present which may interfere with detection of blood. 21 SEE RESULT BELOW Name: KALANI WRIGHT : [address]: Tommy Llanos MD Acct: [id number] Unit: [id number] AGE: 86 Location: [facility] Re09/06/16 SEX: F Status: REG REF SPEC: [id number] RICHELLE: 09/06/16-1425 [facility] [address]: Tommy Llanos MD REQ: [id number] RECD: 09/06/16 STATUS: AYAAN LEMONS DR: Tiffany Bishop MD _ SOURCE: URINE SPDESC: ORDERED: Urine Culture Procedure Result Reported Site Urine Culture Final 09/08/16- 716 ML Organism 1 ESCHERICHIA COLI [place] Count 50-75,000 (Many) CFU/ML Organism 2 NORMAL VERONIKA [place] Count 1-10,000 (Few) CFU/ML 1. ESCHERICHIA COLI M.I.C. RX --------- ------ Ampicillin <=2 S Cefazolin <=4 S Cefepime <=1 S Ceftriaxone <=1 S Ciprofloxacin <=0.25 S Gentamicin >=16 R Levofloxacin <=0.12 S Meropenem <=0.25 S Nitrofurantoin <=16 S Tetracycline >=16 R Pipercillin/Tazobactam <=4 S Trimethoprim/Sulfamethoxazole <=20 S Amoxicillin/Clavulanic Acid <=2 S Aztreonam <=1 S Contact the Microbiology Department for any additional antibiotic reporting. * ML - [facility] . END OF REPORT * ML=Testing performed at Main Lab DEPARTMENT OF PATHOLOGY, [address] [place] [address] Ricardo Goode M.D. Director [facility] # [id number] 22 NO [facility] # 23 SEE RESULT BELOW Name: KALANI WRIGHT : [address]: Prem Vazquez MD Acct: [id number] Unit: [id number] AGE: 85 Location: THYROID Re06/16/16 SEX: F Status: REG REF SPEC: [id number] RICHELLE: 06/16/[address] [facility] [address]: Prem Vazquez MD REQ: [id number] RECD: 06/16/16 STATUS: VALENTINA MARCELO DR: Jose Bishop MD _ ORDERED: FN ASP DEEP, FNA IMMEDIATE S COMMENTS: NO CMC # FINAL DIAGNOSIS Thyroid, right, Ultrasound guided, fine needle aspiration: Benign thyroid nodule- colloid/hyperplastic ([place] class II). The specimen demonstrates abundant watery colloid, a modest amount of benign appearing follicular epithelium arranged in uniform sheets, medium sized follicles and only occasional small groups. No features of papillary carcinoma are seen. In this clinical setting the risk of malignancy is less than 3%. Clinical management of this thyroid nodule should be based on clinical and radiographic features as well as the above. THYROID RIGHT - US GUIDED FINE NEEDLE ASPIRATION CLINICAL HISTORY Right thyroid nodule 1.4cm CONTINUED ON NEXT PAGE * ML=Testing performed at Main Lab DEPARTMENT OF PATHOLOGY, [address] [place] [address] Ricardo Goode M.D. Director [facility] # [id number] RUN DATE: 06/16/16 [facility] LAB LIVE PAGE 2 Patient: KALANI WRIGHT [id number] (Continued) IMMEDIATE INTERPRETATION (Continued) IMMEDIATE INTERPRETATION Pass 1-adequate GROSS DESCRIPTION 1- alcohol fixed slide(s) 1 - passes Signed (signature on file) Christy Cárdenas MD 08/27 1312 END OF REPORT * ML=Testing performed at Main Lab DEPARTMENT OF PATHOLOGY, [address] [place] [address] Ricardo Goode M.D. Director [facility] # [id number] 24 *Ascorbic acid is present which may interfere with detection of blood. 25 99th percentile=0.04 ng/mL Troponin results at [facility] and [facility] are not interchangeable. 26 Because ethnic data is not always readily available, this report includes an eGFR for both -Americans and non- Americans. The National Kidney Disease Education Program (NKDEP) does not endorse the use of the MDRD equation for patients that are not between the ages of 18 and 70, are , have extremes of body size, muscle mass, or nutritional status, or are non- or non-. According to the National Kidney Foundation, irrespective of diagnosis, the stage of the disease is based on the level of kidney function: Stage Description GFR(mL/min/1.73 m(2)) 1 Kidney damage with normal or decreased GFR 90 2 Kidney damage with mild decrease in GFR 60-89 3 Moderate decrease in GFR 30-59 4 Severe decrease in GFR 15-29 5 Kidney failure <15 (or dialysis) 27 1SST 28 RESULTS VERIFIED BY REPEAT ANALYSIS 29 RESULTS VERIFIED BY REPEAT ANALYSIS 30 FASTING 31 SRC: ANKLE 32 Source of Specimen: ANKLE 33 Serratia marcescens Source of Specimen: ANKLE Heavy growth 34 Raoultella planticola Source of Specimen: ANKLE Heavy growth 35 Skin veronika isolated Source of Specimen: ANKLE Heavy growth 36 Source of Specimen: ANKLE S=Susceptible; I=Intermediate; R=Resistant P=Positive; N=Negative MICS are expressed in micrograms per mL Antibiotic RSLT#1 RSLT#2 RSLT#3 RSLT#4 Amoxicillin/Clavulanic Acid R S Ampicillin R Cefazolin R Cefepime S S Ceftriaxone S S Cefuroxime R S Ciprofloxacin S S Ertapenem S Gentamicin S S Imipenem S S Levofloxacin S Piperacillin S R Tetracycline R S Tobramycin S S Trimethoprim/Sulfa S S 37 consistent w/ previous results 38 RESULTS VERIFIED BY REPEAT ANALYSIS 39 RESULTS VERIFIED BY REPEAT ANALYSIS 40 RESULTS VERIFIED BY REPEAT ANALYSIS 41 RESULTS VERIFIED BY REPEAT ANALYSIS 42 Escherichia coli >100,000 col/ml URINE CULTURE organism 1 Escherichia coli >100,000 col/ml Amikacin <=2 Susceptible Amoxicillin/CA <=2 Susceptible Ampicillin <=2 Susceptible Aztreonam <=1 Susceptible Cefazolin <=4 Susceptible Cefoxitin <=4 Susceptible Ciprofloxacin <=0.25 Susceptible Ertapenem <=0.5 Susceptible Gentamicin <=1 Susceptible Imipenem <=0.25 Susceptible Levofloxacin <=0.12 Susceptible Nitrofurantoin 32 Susceptible Piperacillin/tazobactam <=4 Susceptible Trimethoprim/Sulfa <=20 Susceptible 43 FASTING 44 Vitamin D deficiency has been defined by the [employer] and an Endocrine Society practice guideline as a level of serum 25-OH vitamin D less than 20 ng/mL (1,2). The Endocrine Society went on to further define vitamin D insufficiency as a level between 21 and 29 ng/mL (2). 1. IOM (Hooper of Medicine). 2010. Dietary reference intakes for calcium and D. [place]: The National Academies Press. 2. Rui MF, Desiree NC, Missael KENDRICK, et al. Evaluation, treatment, and prevention of vitamin D deficiency: an Endocrine Society clinical practice guideline. JCEM. 2010; 96(7):1911-30. 45 results rechecked consistant with patient's history 46 RESULT SUBHA'D 47 results rechecked 48 Vitamin D deficiency has been defined by the Hooper of Medicine and an Endocrine Society practice guideline as a level of serum 25-OH vitamin D less than 20 ng/mL (1,2). The Endocrine Society went on to further define vitamin D insufficiency as a level between 21 and 29 ng/mL (2). 1. IOM (Hooper of Medicine). 2010. Dietary reference intakes for calcium and D. [place]: The National Academies Press. 2. Rui FUNEZ, Desiree PRUITT, Missael KENDRICK, et al. Evaluation, treatment, and prevention of vitamin D deficiency: an Endocrine Society clinical practice guideline. JCEM. 2010; 96(7):1911-30. 49 RUN DATE: 11/06/11 [facility] NMI LIVE PAGE 1 RUN TIME: 1421 Specimen Inquiry RUN USER: INTERFACE Name: KALANI WRIGHT Status: REG REF Re11/01/11 Age/Sex: 81/F Unit#: [id number] Location: [facility] : 29 SPEC #: [id number] RICHELLE: 11/01/11 STATUS: COMP REQ #: [id number] RECD: 11/01/11 [facility] DR: Edna MONTAGUE,Tiffany Alvarado SOURCE: BLOOD ENTR: 11/01/[address]: ROSEANN: BLOOD,VENO ORDERED: BLOOD CULTURE COMMENTS: LOOK FOR LISTERIA QUERIES: MEDENT REQUISITION # [id number] ACT WKST: 11/02/11 #1 Procedure Result Verified Site > AEROBIC CULTURE BOTTLE Final 11/06/11- 1420 ML NO GROWTH AFTER 5 DAYS > ANAEROBIC CULTURE BOTTLE Final 11/06/11- 1420 ML NO GROWTH AFTER 5 DAYS ML - [place] [facility] State Permit #[id number] [address] [place] [address] DEPARTMENT OF PATHOLOGY, [address] [place] [address] [facility] Permit #[id number] Clinton Griffiths M.D. Hand Hose Cutter 50 RUN DATE: 11/06/11 [facility] NMI LIVE PAGE 1 RUN TIME: 1053 Specimen Inquiry RUN USER: INTERFACE Name: KALANI WRIGHT Harleen Accelis#: [id number] Status: REG REF Re11/01/11 Age/Sex: 81/F Unit#: [id number] Location: [facility] : 29 SPEC #: [id number] RICHELLE: 11/01/11 STATUS: AYAAN REQ #: [id number] RECD: 11/01/11 [facility] [address]: Edna MONTAGUE,Tiffany Alvarado SOURCE: STOOL ENTR: 11/01/[address] [facility] [address]: [facility]: ORDERED: STOOL CULTURE, O P: GIAR/CRYP, C. DIFF AMP DNA COMMENTS: VERBAL TO DR. PEACOCK BY FREYA at 1052 on 11/06/11. Results read back accurately. RESULTS SENT TO [facility] INFECTION CONTROL NURSE ON 11/06/11 AT 1052 BY FREYA. Sent via email to [facility] by FREYA at 1052 on 11/06/11. C. DIFFICILE TOXIN TESTING IS NOT PERFORMED ON FORMED STOOL SPECIMENS. TEST OF CURE ON POSITIVE PATIENTS IS NOT RECOMMENDED. VERBAL TO ALONDRA TRACEY (DR. GRAMAJO'S OFFICE) BY LONA at 0929 on 11/01/11. 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 at 0947 on 11/01/11. Diagnosis of listeria is confirmed only after isolation of Listeria monocytogenes from a normally sterile site, such as blood, or from amniotic fluid or the placenta in the setting of . (Centers for Disease Control and Prevention) ACT WKST: B 11/06/11 #1 Procedure Result Verified Site > STOOL CULT SENSITIVITY Final 11/06/11- 1052 ML Organism 1 YERSINIA SPECIES Organism 2 NORMAL VERONIKA UNCOMPLICATED DIARRHEA WITH YERSINIA SP. SHOULD BE MANAGED WITH FLUID AND ELECTROLYTE REPLACEMENT. IN CASES OF SEVERE ENTEROCOLITIS, ANTIBIOTICS HAVE SHOWN SOME BENEFIT IN TERMS OF SHORTENING THE DURATION OF ILLNESS. PATIENT POPULATIONS WHO SHOULD BE CONSIDERED FOR EMPIRIC THERAPY INCLUDE ELDERLY PATIENTS, PATIENTS WITH DIABETES, PATIENTS WITH CIRRHOSIS, IMMUNOCOMPROMISED PATIENTS, PATIENTS WITH CANCER RECEIVING CHEMOTHERAPY, AND HEALTH CARE WORKDERS AND SHOW GIRL WORKERS WHO ARE AT INCREASED RISK OF DEPARTMENT OF PATHOLOGY, [address] [place] [address] [facility] Permit #[id number] [place] Griffiths M.D. Hand Hose Cutter RUN DATE: 11/06/11 [facility] NMI LIVE PAGE 2 RUN TIME: 1053 Specimen Inquiry RUN USER: INTERFACE Name: KALANI WRIGHT Status: REG REF Re11/01/11 Age/Sex: 81/F Unit#: [id number] Location: [facility] : 29 -- -- CONTINU ED Procedure Result Verified Site STOOL CULT SENSITIVITY Final (continued) 11/06/11- 105 PERSON TO PERSON SPREAD. ANTIBIOTIC TREATMENT SHOULD BEW USED IN PATIENTS WITH BACTEREMIA AND WITH EXTRAINTESTINAL MANIFESTATIONS. IN VITRO TESTING IS NOT RELIABLE, AND THE ADMINISTRATION OF BROAD-SPECTRUM CEPAHLOSPORINS IN COMBINATION WITH AN AMINOGLYCOSIDE APPEARS EFFECTIVE FOR MOST EXTRAINTESTINAL INFECTION, INCLUDING SEPTICIMIA. FLUOROQUINOLONES, ALONE OR WITH AMINOGLYCOSIDES OR EXTENDED-SPECTRUM CEPAHLOSPORINS, ALSO APPEAR EFFECTIVE. TRIMETHOPRIM-SULFAMETHOXAZOLE SHOW IN VITRO EFFICACY, BUT HAS LITTLE EFFECT ON THE CLINICAL COURSE OR DURATION OR YERSINIA GASTROENTERITIS. SENSITIVITIES NOT ROUTINELY PERFORMED ON STOOL ISOLATES, ANTIBIOTICS MAY PROLONG THE CARRIAGE RATE OF PATHOGENIC BACTERIA. SENSITIVITY TESTING AVAILABLE UPON REQUEST. > STOOL SPECIMEN DESCRIPTION Final 11/01/11- 0858 ML STOOL COLOR BROWN STOOL FORM FORMED STOOL CONSISTENCY SOFT > CAMPYLOBACTER CULTURE Final 11/03/11- 1526 ML NO GROWTH OF CAMPYLOBACTER AFTER 48 HOURS > SHIGA TOXIN 1 AND 2 (EHEC) Final 11/02/11- 0904 ML SHIGA TOXIN 1 NEGATIVE BY IMMUNOCHROMATOGRAPHIC ASSAY SHIGA TOXIN 2 NEGATIVE BY IMMUNOCHROMATOGRAPHIC ASSAY > O P: GIARDIA/CRYPTO SCREEN Final 11/01/11- 1351 ML GIARDIA ANTIGEN NEGATIVE BY IMMUNOASSAY CRYPTOSPORIDIUM ANTIGEN NEGATIVE BY IMMUNOASSAY Giardia and cryptosporidium antigen testing performed by immunoassay. If patient is immunocompromised or has traveled to or is from a developing country, a full ova and parasite exam with microscopic (OPMIC) is recommended. All samples will be held one month in case full ova and parasite testing is requested. Contact the Microbiology Department at [phone]. DEPARTMENT OF PATHOLOGY, [address] [place] [address] [facility] Permit #[id number] Ricardo Goode M.D. Director Shanell Cisneros M.D. Hand Hose Cutter RUN DATE: 11/06/11 [facility] NMI LIVE PAGE 3 RUN TIME: 1053 Specimen Inquiry RUN USER: INTERFACE Name: KALANI WRIGHT Status: REG REF Re11/01/11 Age/Sex: 81/F Unit#: [id number] Location: [facility]. : 29 -- -- CONTINU ED Procedure Result Verified Site O P: GIARDIA/CRYPTO SCREEN Final (continued) 11/01/11- 1351 TEST LIMITATIONS: As with all diagnostic procedures, the results obtained should be used in conjunction with other clinical information available the physician. Negative results can occur in samples containing antigen below lower limits of detection of the assay. The use of colonic washes, aspirates or other diluted sample types has not been established and could affect the performance of the assay. Stool samples contaminated with an oily or particulate base (eg. Barium, mineral oil etc.) could interfere with the test and are not recommended. > C. DIFFICILE AMPLIFIED DNA Final 11/01/11- 08 ML Test not performed - [facility] Permit #[id number] [facility] [address] DEPARTMENT OF PATHOLOGY, [facility] [place], [place] [address] [facility] Permit #[id number] Ricardo Goode M.D. Director Shanell Cisneros M.D. Hand Hose Cutter 51 RUN DATE: 11/17/11 [facility] NMI LIVE PAGE 1 RUN TIME: 0900 Specimen Inquiry RUN USER: INTERFACE Name: RAISAKALANI H Accelis#: [id number] Status: REG REF Re11/01/11 Age/Sex: 81/F Unit#: [id number] Location: [facility] : 29 SPEC #: [id number] RICHELLE: 11/01/11 STATUS: COMP REQ #: [id number] RECD: 11/01/11 [facility] [address]: Edna MONTAGUE,Tiffany Alvarado SOURCE: STOOL ENTR: 11/06/11-[address]: ROSEANN: ORDERED: BACT ID LEELEEND COMMENTS: ISOLATE FOR CONFIRMATION ID ACT WKST: RIYAS 11/07/11 #1 Procedure Result Verified Site > BACTERIAL ID JUSTICE Final 11/17/11- 899 ML YERSINIA ENTERCOLITICA, NOT 0:3; 0:8; OR 0:5,27 WAS IDENTIFIED. Test Performed by [facility] P.ODaniel Spence [address] [place] [address], [place] [address] ML - [facility] Permit #[id number] [address] [place] [address] DEPARTMENT OF PATHOLOGY, [address] [place] [address] [facility] Permit #[id number] Clinton Griffiths M.D. Hand Hose Cutter 52 results subha 53 ---- RUN DATE: 05/25/11 [facility] NMI LIVE PAGE 1 RUN TIME: 1548 Specimen Inquiry RUN USER: INTERFACE -- Name: RAISAKALANI Harleen Status: REG REF Re05/24/11 Age/Sex: 80/F Unit#: [id number] Location: END : 29 -- Specimen: [id number] Spec Date:05/24/11- Subm Dr: Benson Carpio MD Spec Type: SURGICAL P Received:05/24/11-1329 Copies to: Debra potter MD SPECIMEN BIOPSY CECAL NODULE HISTORY POST-OP DIAGNOSIS: Diverticulosis. Cecal nodule. Hiatal hernia. Stricture to 19 mm. CLINICAL INFORMATION: Dysphagia. Screening. GROSS DESCRIPTION The specimen is received in formalin labelled Kalani Wright, Cecal Nodule, and consists of a fragment of pink tissue measuring 0.4 x 0.2 x 0.2 cm. Submitted entirely, one cassette. DIAGNOSIS Cecum, biopsy: Hyperplastic polyp. Signed Electronically by: SHANELL CISNEROS 05/25/11 1548 -- -- DEPARTMENT OF PATHOLOGY, [address] [place] [address] [facility] Permit #[id number] Ricardo Goode M.D. Director Shanell Cisneros M.D. Paste Mixer Liquid samm -- 54 RESULT RECHECKED 55 Lymphopenia % 56 Anion gap measurement may be of limited value in the presence of any alkalosis, especially in a combined acid base disorder. . 57 New Reference Range and Interpretation effective 12/14/01 TnI (ng/ml) INTERPRETATION <0.06 ng/ml NOT SUPPORTIVE OF DIAGNOSIS OF GA 0.06 - 0.50 ng/ml INDETERMINATE: SUGGEST SERIAL STUDIES IF CLINICALLY INDICATED. > 0.5 ng/ml CONSISTENT WITH DIAGNOSIS OF GA . 58 NEGATIVE 59 RECOMMENDED INR FOR PATIENTS ON ORAL ANTICOAGULANTS PROPHYLAXIS: 2.0-3.0 TREATMENT OF THROMBOSIS 2.0-3.0 PREVENTION OF EMBOLISM 2.0-3.0 PREVENTION OF EMBOLISM FROM PROSTHETIC HEART VALVES 2.5-3.5 Procedures Date CPT Code Description Status Comment 03/28/2017 05071 Electrocardiogram Complete Completed 11/11/2015 65850 Electrocardiogram Complete Completed 04/03/2015 Mammogram Completed 04/22/2014 Mammogram Completed 04/16/2013 Mammogram Completed 06/22/2012 64053 Nebulizer Treatment Completed 03/23/2012 Mammogram Completed 05/12/2011 Colonoscopy Completed Diverticulosis 03/23/2011 Mammogram Completed 03/22/2010 Mammogram Completed 03/20/2009 Mammogram Completed 03/18/2008 Mammogram Completed 03/14/2007 Mammogram Completed 09/19/2006 Mammogram Completed 03/17/2006 Mammogram Completed 10/05/2005 Bone Mineral Density Test Completed SPINE 09/12/2005 Mammogram Completed 04/01/2005 27645 Pulse Oximetry Completed 06/19/2003 57096 Electrocardiogram Complete Completed 05/03/2002 93124 Electrocardiogram Complete Completed 05/20/1999 54544 Electrocardiogram Complete Completed 12/15/1997 51431 Electrocardiogram Interpretation & Completed Report Only Encounters Type Date Location Provider CPT E/M Dx Office Visit 02/15/2018 3:20p Main Office Tiffany Bishop M.D. 50026 N39.0 S80.11xD G31.84 Office Visit 02/09/2018 10:30a [facility] Jasmin Traylor, DIRECTOR OF SPORTS PERFORMANCE 71669 Z48.02 S01.00xA Office Visit 01/11/2018 3:10p Main Office Tiffany Bishop M.D. 56854 G31.84 S80.11xD Office Visit 12/19/2017 9:40a Main Office Tiffany Bishop M.D. 76468 I10 M19.011 I70.213 S80.11xD E78.2 G31.84 Z23 Office Visit 11/23/2017 1:15p [facility] Office Christy Blake, [facility] [address]8587 S80.11xD I70.213 R60.0 Office Visit 11/17/2017 2:40p [facility] Tiffany Bishop 19285 S80.11xA [place] I70.213 R60.0 Office Visit 08/15/2017 2:00p Main Office Tiffany Bishop M.D. 45654 Z00.00 I10 M19.011 I70.213 Z23 E78.2 G31.84 Office Visit 05/30/2017 2:40p Main Office Tiffany Bishop M.D. 75675 I10 M19.011 R35.0 R19.7 R60.0 Office Visit 03/28/2017 3:00p Main Office Tiffany Bishop M.D. 02900 I10 M19.011 G31.84 R09.81 I49.9 Office Visit 12/27/2016 3:20p Main Office Tiffany Bishop M.D. 28858 R35.0 M19.011 G31.84 Z23 Office Visit 10/19/2016 11:00a Main Office Tiffany Bishop M.D. 26313 N39.0 M75.121 G31.84 Office Visit 08/15/2016 12:00p Main Office Tiffany Bishop M.D. 45628 Z01.818 M19.011 M75.121 Office Visit 04/26/2016 10:40a [facility] Tiffany Bishop M.D. 57879 M25.511 R13.10 G31.84 S80.11xA Office Visit 03/29/2016 1:40p [facility] Tiffany Bishop M.D. 34018 M25.551 M25.511 Z23 N18.2 G31.84 Office Visit 01/20/2016 3:40p Main Office Tiffany Bishop M.D. 71158 R13.10 I70.213 D50.8 Office Visit 12/21/2015 11:20a Main Office Tiffany Bishop M.D. 84064 R53.83 Office Visit 11/11/2015 10:40a Main Office Tiffany Bishop M.D. 51528 I10 I70.213 R68.89 Office Visit 11/03/2015 1:00p [facility] Tiffany Bishop M.D. 47439 R53.83 I70.213 Office Visit 06/11/2015 9:15a Main Office Preet Keys 09056 S81.802A I87.2 Y92.010 W22.09xA Y93.G1 Office Visit 02/26/2015 1:40p [facility] Tiffany Bishop M.D. 32659 R53.83 I10 N32.81 D75.89 E55.9 K30 Office Visit 02/12/2015 1:00p [facility] Tiffany Bishop M.D. 59309 R53.83 I10 K21.9 N32.81 E55.9 Z00.00 R20.2 Z23 Z00.01 N63 Office Visit 08/14/2014 2:00p [facility] Tiffany Bishop M.D. 55516 783.21 401.9 530.81 268.9 550.90 v03.82 Office Visit 07/08/2013 11:15a Main Office Preet Keys 26949 782.3 459.81 Office Visit 2013 8:10p Main Office Tiffany Bishop M.D. 13444 564.09 Office Visit 06/12/2013 5:00p Main Office Preet Keys 51785 562.11 Office Visit 06/03/2013 7:30p Main Office Tiffany Bishop M.D. 34433 562.11 Office Visit 05/20/2013 10:00a Main Office Preet Keys 22193 599.0 Office Visit 05/02/2013 9:40a [facility] Office Tiffany Bishop M.D. 86317 782.3 355.6 550.91 Office Visit 10/23/2012 2:10p Main Office Tiffany Bishop M.D. 62032 V70.0 401.9 477.8 530.81 729.82 564.00 268.9 550.91 Office Visit 09/11/2012 9:40a Main Office Tiffany Bishop M.D. 59542 995.3 401.9 564.00 729.81 729.82 Office Visit 06/22/2012 9:50a [facility] Office Tiffany Bishop M.D. 64017 786.2 Office Visit 05/24/2012 11:15a Main Office Preet Keys 03506 465.9 Office Visit 10/31/2011 6:50p Main Office Tiffany iBshop M.D. 78789 787.91 Office Visit 10/10/2011 1:10p Main Office Thad Uribe M.D. 08235 787.91 Office Visit 07/20/2011 12:30p Main Office Debra Fay 89620 401.9 [place] 477.8 780.79 530.81 Office Visit 01/19/2011 1:40p Main Office Debra Fay M.D. 52592 401.9 477.8 V04.81 Office Visit 08/18/2010 10:00a Main Office Christy Bowman M.D. 42000 477.8 401.9 Office Visit 02/17/2010 11:00a Main Office Christy Bowman M.D. 61820 401.9 473.8 Office Visit 12/23/2009 11:20a Main Office Christy Bowman M.D. 12228 719.45 V04.81 v04.81 V10.3 Office Visit 11/11/2009 4:00p Main Office Christy Bowman M.D. 53894 719.45 454.8 695.3 781.1 401.9 Office Visit 02/12/2009 3:20p [facility] Office Christy Bowman 80546 701.1 M.DDaniel Office Visit 08/12/2008 2:45p [facility] Office Preet Keys 17726 924.11 916.0 Office Visit 10/24/2007 3:20p Main Office Christy Bowman M.D. 62324 787.91 Office Visit 09/13/2007 1:40p Main Office Christy Bowman M.D. 51861 782.3 788.41 690.11 V10.3 Office Visit 08/27/2007 4:15p Main Office CRUZ Morton 76225 690.11 Office Visit 06/29/2007 3:15p Main Office CRUZ Morton 96808 386.30 Office Visit 02/13/2007 11:40a [facility] Office Christy Bowman 24390 782.3 M.DDaniel 788.41 787.22 Office Visit 08/09/2006 7:00p Main Office Thad Uribe M.D. 37724 466.0 Office Visit 05/18/2006 10:10a Main Office Christy Bowman M.D. 84430 789.33 Office Visit 03/01/2006 8:15p Main Office Preet Keys 84462 465.9 Office Visit 12/26/2005 1:10p Main Office Christy Bowman M.D. 67313 389.2 285.9 V04.81 280.9 Office Visit 09/28/2005 3:20p Main Office Christy Bowman M.D. 52523 782.3 401.9 716.90 Office Visit 04/01/2005 10:30a [facility] Office Bessy Mcclure, [facility] 36854 466.0 Office Visit 11/09/2004 8:00p Main Office Daniela Lester, [facility] 40708 845.00 Office Visit 08/16/2004 11:30a Main Office Acacia Smalls, [facility] 22088 923.9 Office Visit 04/08/2004 11:15a [facility] Office Nishi Lopez, [facility] 59477 110.4 Office Visit 11/14/2003 9:00a Main Office Christy Bowman 45289 945.22 M.DDaniel Office Visit 11/05/2003 3:00p Main Office Thad Uribe M.D. 05530 945.22 Office Visit 06/19/2003 2:20p Main Office Berny Taylor M.D. 91846 401.9 V72.84 366.9 794.31 Office Visit 05/03/2002 3:20p Main Office Justin Ambrose M.D. 50994 401.1 716.90 280.9 Office Visit 08/16/2001 2:10p Main Office Justin Ambrose M.D. 62188 Office Visit 04/17/2001 10:10a Main Office Justin Ambrose M.D. 43330 Office Visit 01/09/2001 10:10a Main Office Justin Ambrose M.D. 29766 Office Visit 11/07/2000 8:00a Main Office Justin Ambrose M.D. 58675 Office Visit 04/18/2000 9:00a Main Office Justin Ambrose M.D. 19503 Office Visit 12/21/1999 9:00a Main Office Justin Ambrose M.D. 98830 Plan of Care 02/21/2018 - Tiffany Bishop M.D.S80.11xS Contusion of right lower leg, sequelaComments:The wound is worse.Go ahead and finish the capsuleswill re- refer to wound clinic.Take the align probiotic pills twice a day.AllComments:~B_ ~U_Medication Management~b_~u_ Patient Understands medications she's taking? Yes No Are there Barriers to Adherence? Yes No Has the patient been asked about herbal supplements and therapies, and OTC meds? Yes No
[2018-03-19 12:37] LABS: C Reactive Protein 11.66 mg/L (<8.01); Uric Acid 6.2 mg/dL (2.3-6.6)
[2018-03-19 12:56] LABS: Erythrocyte Sed Rate 46 mm/Hr (0-40)
[2018-03-19 12:58] LABS: Urine Appearance Cloudy; Urine Bilirubin Negative (Negative); Urine Blood Negative (Negative); Urine Color Yellow; Urine Glucose Negative (Negative); Urine Ketones Negative (Negative); Urine Nitrite Negative (Negative); Urine Protein Negative (Negative); Urine Specific Gravity 1.017 (1.010-1.030); Urine Urobilinogen Negative (Negative)
[2018-03-19] MEDS ORDERED: Meropenem 1 GM PREMIX(*) 1 GM/50 ML BAG IV ONE (13:00)
[2018-03-19 15:29] LABS: Albumin 3.4 g/dL (3.2-5.2); Albumin/Globulin Ratio 1.4 (1-3); BUN/Creatinine Ratio 37.9 (8-20); Calcium 9.4 mg/dL (8.6-10.3); EGFR Non-African American 55.5 (>60); Globulin 2.5 g/dL (2-4); Potassium 4.1 mmol/L (3.5-5.0); Total Bilirubin 0.3 mg/dL (0.2-1.0); Total Protein 5.9 g/dL (6.4-8.9)
[2018-03-19] MEDS ORDERED: Acetaminophen TAB* 325 MG PO PRN (15:59)
[2018-03-19] MEDS ORDERED: Loperamide CAP* 2 MG PO PRN (16:03)
[2018-03-19] MEDS ORDERED: Zosyn per Pharmacy* NOTE FOLLOW UP SCH (17:00)
[2018-03-19] MEDS: ZOSYN 3.375 GM Q8H per EXTENDED INFUSION IVPB SCH ×2 (18:55)
[2018-03-19] MEDS: Donepezil TAB* 5 MG PO SCH (21:34)
[2018-03-19] MEDS: Heparin VIAL(*) 5000 UNITS/ML VIAL (FIVE THOUSAND) SUBCUT SCH (21:37)
--- NOTE | 2018-03-19 23:12 | HP ---
CC: Dr. Tiffany Bishop * HISTORY AND PHYSICAL: DATE OF ADMISSION: 03/19/18 PRIMARY CARE PROVIDER: Dr. Tiffany Bishop. ATTENDING PHYSICIAN WHILE IN THE HOSPITAL: Dr. José Miguel Christine * (dictated by Yuko Meraz NP). CHIEF COMPLAINT: Right lower leg cellulitis and nonhealing ulcer. HISTORY OF PRESENT ILLNESS: Ms. Wright is an 87-year-old female with the past medical history significant for agoraphobia; hypertension; GERD; diverticulosis ; hiatal hernia; osteoarthritis; peripheral vascular disease; history of breast cancer, treated with radiation and tamoxifen; overactive bladder; anxiety; depression; fibromuscular dysplasia; and history of left wrist fracture, who presented to the emergency room from wound clinic for increased swelling and erythema to the right lower extremity. The patient reports that she was recently placed on p.o. antibiotics and her right lower leg wound is not responding to current outpatient oral antibiotics. So, she was referred to the emergency room for further evaluation. She does report that she was started on cefdinir on 03/12/18 and has been taking 1 capsule twice daily with no change in redness or swelling. Due to the increased concern of infection, she was sent to the emergency room for further evaluation. PAST MEDICAL HISTORY: Significant for: 1. Peripheral vascular disease. 2. Agoraphobia. 3. Hypertension. 4. GERD. 5. History of diverticulosis. 6. History of hiatal hernia. 7. History of osteoarthritis, anxiety, depression. 8. History of breast cancer. PAST SURGICAL HISTORY: 1. Tonsillectomy and adenoidectomy. 2. Hernia repair. 3. Left breast lumpectomy. 4. Cataract removal. 5. Right shoulder surgery. HOME MEDICATIONS: 1. Cefdinir 300 mg p.o. b.i.d. 2. Hydrochlorothiazide 25 mg p.o. daily. 3. Omeprazole 20 mg p.o. q.a.m. 4. Pletal 50 mg p.o. daily. 5. Myrbetriq 25 mg p.o. q.a.m. 6. Enteric-coated aspirin 81 mg p.o. daily. 7. Multivitamin 1 tablet p.o. daily. 8. Singulair 10 mg p.o. daily. 9. Aricept 5 mg p.o. at bedtime. 10. Imodium 2 mg p.o. b.i.d. 11. Lisinopril 10 mg p.o. daily. ALLERGIES: Allergies to medications: LACTOSE and SULFA. FAMILY HISTORY: Parents lived into their 90s. No reported history of coronary artery disease, diabetes or cancer within the family. SOCIAL HISTORY: She is a former smoker. She quit smoking approximately 20 years ago, prior to that she smoked a pack a day for 50 years. She does report 1 glass of wine daily. Denies any illicit drug use. She is . She lives with her son. Surrogate decision maker in the event she is unable to make her own decisions is her son, Junior. She is a full code. REVIEW OF SYSTEMS: There has been no documented fever. No unintended weight loss, chest pain, or edema. Denies any cough, hemoptysis, or shortness of breath. Denies any nausea, vomiting, diarrhea, or abdominal pain. Denies any gross hematuria or dysuria, focal weakness or sensory loss. Denies any visual complaints, dysphasia, arthralgia or myalgia. She does report swelling and redness to the right lower extremity with open ulceration. Denies any psychosis or anxiety. PHYSICAL EXAMINATION GENERAL: At this time, Ms. Wright is an 87-year-old female. She appears well , sitting on the stretcher in the emergency room. She does not appear to be in acute distress. VITAL SIGNS: Blood pressure 128/70, heart rate 89, respirations 18, O2 saturation 98%, temperature 97.6. HEENT: Head is atraumatic and normocephalic. Eyes: EOMs are intact. Sclerae are anicteric and not pale. Oral mucosa appears to be moist. NECK: Supple. LUNGS: Clear to auscultation bilaterally. No wheezes, rales, or rhonchi. CARDIAC: S1, S2. Regular rate and rhythm. No murmurs, rubs, or gallops. ABDOMEN: Soft and nontender. Bowel sounds are present x4. EXTREMITIES: Pedal pules are +2 bilaterally. She is able to move all 4 extremities with 5/5 strength. She does have mild swelling noted to the right lower extremity and mild erythema with open ulceration noted to the lateral aspect of the lower leg. Dressing does have a small amount of purulent drainage noted. SKIN: She does have mild erythema noted to the right lower extremity and right foot with mild swelling and open ulceration noted to the lateral aspect of the right lower extremity. NEUROLOGIC: She is awake, alert, oriented x3. Speech is clear. Thought process is intact. No gross deficits are noted. DIAGNOSTIC STUDIES/LABORATORY DATA: WBCs were 9.4, RBCs 3.50, hemoglobin 11.2 , hematocrit was 34, platelet count 239, ESR was 46. Sodium 141, potassium 4.1 , chloride 107, carbon dioxide was 27, anion gap was 7, BUN was 36, C-reactive protein was 11.66. Urine was within normal limits. No abnormality. She did have a venous ultrasound of the right lower leg, which showed no DVT. ASSESSMENT AND PLAN: Ms. Wright is an 87-year-old female with a past medical history significant for hypertension; gastroesophageal reflux disease; osteoarthritis; anxiety and depression, who presented to the emergency room with complaints of nonhealing ulceration to the right lower extremity, who is currently being managed at [facility], who has failed outpatient antibiotic therapy and was sent to the emergency room for further evaluation of increased redness and swelling to the right lower extremity. She will be admitted on observation for: 1. Right lower extremity cellulitis. I suspect this is related to open ulceration to the right lower extremity. She was currently on cefdinir as an outpatient with no improvement in her symptoms and development of increased redness and swelling. At this time, I will place her on Zosyn 3.375 g. Her wound culture to her right lower extremity was negative for MRSA and negative for MSSA. She will be evaluated overnight. 2. Hypertension. We will continue on hydrochlorothiazide and lisinopril as previously prescribed. 3. Peripheral vascular disease. We will continue on Pletal. 4. GERD. She will continue on Prilosec. 5. FEN. She can have a heart-healthy, caffeine-okay diet. 6. DVT prophylaxis: I will place her on heparin subcu q.8 hours. 7. Code status: She is a full code. TIME SPENT: Time spent on this admission was 60 minutes, greater than half that time was spent on [id number] with the patient and obtaining my history and physical, the other half the time was spent going over my plan of care and implementing my plan of care. I have discussed with my attending, Dr. José Miguel Christine, who is in agreement with my plan. YUKO MERAZ, ROBOTICS SPECIALIST [id number]/[facility] #: [id number] [facility] CENTERWilbert
[2018-03-20] MEDS: ZOSYN 3.375 GM Q8H per EXTENDED INFUSION IVPB SCH ×6 (03:42→17:26)
[2018-03-20] MEDS: Heparin VIAL(*) 5000 UNITS/ML VIAL (FIVE THOUSAND) SUBCUT SCH ×3 (05:25→20:59)
[2018-03-20 06:30] LABS: ABS Basophils 0 10^3/ul (0-0.2); ABS Eosinophils 0.1 10^3/ul (0-0.6); ABS Lymphocytes 1.4 10^3/ul (1.0-4.8); ABS Monocytes 0.5 10^3/ul (0-0.8); ABS Nucleated RBC 0 10^3/ul; Eosinophil % 1.2 %; Hematocrit 33 % (35-47); Hemoglobin 10.7 g/dl (12.0-16.0); Lymphocyte % 19.6 %; Mean Corpuscular HGB Conc 33 g/dl (31-36); Mean Corpuscular Hemoglobin 32 pg (27-31); Mean Corpuscular Volume 98 fL (80-97); Nucleated Red Blood Cells % 0; Platelet Count 199 10^3/ul (150-450); Red Blood Count 3.36 10^6/ul (4.00-5.40); Red Cell Distribution Width 13 % (10.5-15)
[2018-03-20 06:51] LABS: BUN/Creatinine Ratio 30.5 (8-20); Calcium 8.6 mg/dL (8.6-10.3); EGFR Non-African American 49.5 (>60); Potassium 4.1 mmol/L (3.5-5.0)
[2018-03-20] MEDS: Cilostazol TAB* 100 MG PO SCH (10:40)
[2018-03-20] MEDS: Multivitamins/Minerals TAB PO SCH (10:40)
[2018-03-20] MEDS: Lisinopril TAB* 10 MG PO SCH (10:41)
[2018-03-20] MEDS: Pantoprazole TAB * 40 MG TAB PO SCH (10:41)
[2018-03-20] MEDS: Aspirin EC TAB* 81 MG TAB.EC PO SCH (10:41)
[2018-03-20] MEDS: Hydrochlorothiazide TAB* 25 MG PO SCH (10:41)
[2018-03-20] MEDS: NFT: Mirabegron (NF) 25 MG TAB PO SCH (10:42)
--- NOTE | 2018-03-20 12:37 | PN ---
Subjective Date of Service: 03/20/18 Interval History: Ms. Wright is feeling better today. She feels as though the edema and erythema in her RLE are improved from yesterday. She has a dressing in place to the right ankle. She is a poor historian and is not able to provide much substantial history about the wound or cellulitis. She denies CP, SOB, N/V/D. Ambulating in the room. Family History: Unchanged from Admission Social History: Unchanged from Admission Past Medical History: Unchanged from Admission Objective Active Medications: Acetaminophen (Tylenol Tab*) 650 mg PO Q4H PRN FEVER/PAIN Aspirin (Aspirin Ec Tab*) 81 mg PO DAILY [facility] Cilostazol (Pletal Tab*) 50 mg PO DAILY [facility] Donepezil HCl (Aricept Tab*) 5 mg PO BEDTIME [facility] Heparin Sodium (Porcine) (Heparin Vial(*)) 5,000 units SUBCUT Q8HR [facility] Hydrochlorothiazide (Hydrodiuril Tab*) 25 mg PO DAILY [facility] Piperacillin Sod/Tazobactam (Sod 3.375 gm/ Sodium Chloride) 100 mls @ 25 mls/ hr IVPB Q8H [facility] Lisinopril (Prinivil Tab*) 10 mg PO DAILY [facility] Loperamide HCl (Imodium Cap*) 2 mg PO BID PRN DIARRHEA Mirabegron (Myrbetriq (Nf)) 25 mg PO QAM [facility] Multivitamins/Minerals (Theragran/Minerals Tab*) 1 tab PO DAILY [facility] Pantoprazole Sodium (Protonix Tab *) 40 mg PO QAM [facility] Pharmacy Consult (Zosyn Per Pharmacy*) 1 note FOLLOW UP .ZOSYN PER PHARMACY [facility] Vital Signs - 8 hr 03/20/18 03/20/18 07:49 08:00 Temperature 98.6 F Pulse Rate 68 Respiratory 16 16 Rate Blood Pressure 130/74 (mmHg) O2 Sat by Pulse 98 Oximetry Oxygen Devices in Use Now: None Appearance: Elderly female sitting in bed in NAD Eyes: No Scleral Icterus Ears/Nose/Mouth/Throat: Mucous Membranes Moist Neck: NL Appearance and Movements; NL JVP, Trachea Midline Respiratory: Symmetrical Chest Expansion and Respiratory Effort, Clear to Auscultation Cardiovascular: NL Sounds; No Murmurs; No JVD, RRR Abdominal: NL Sounds; No Tenderness; No Distention Extremities: - - +1 pitting to RLE Skin: - - Wound to RLE wrapped with gauze Neurological: Alert and Oriented x 3, NL Sensation Lines/Tubes/Other Access: Clean, Dry and Intact Peripheral IV Nutrition: Taking PO's Result Diagrams: 03/20/18 06:24 03/20/18 06:24 Assess/Plan/Problems-Billing Assessment: Ms. Wright is an 87 yo female with PMH of PVD, HTN, and GERD who presented to the ED with c/o redness and a non-healing wound to the RLE and was found to have cellulitis, failing outpatient therapy. - Patient Problems (1) Cellulitis of right lower leg Code(s): L03.115 - CELLULITIS OF RIGHT LOWER LIMB Comment: - Failed outpatient therapy on Cefdinir; has also been on Levaquin and clinda in the last 2 weeks, but it is unclear if this was for cellulitis - Non-healing wound secondary to PVD - Erythema and edema to right ankle; wound to lateral right lower leg dressed with gauze - No evidence of DVT on US - Continue Zosyn (2) PVD (peripheral vascular disease) Code(s): I73.9 - PERIPHERAL VASCULAR DISEASE, UNSPECIFIED Comment: - Continue Pletal (3) Hypertension Code(s): I10 - ESSENTIAL (PRIMARY) HYPERTENSION Comment: - Stable, with SBP 130-140s - Continue lisinopril, HCTZ (4) GERD (gastroesophageal reflux disease) Code(s): K21.9 - GASTRO-ESOPHAGEAL REFLUX DISEASE WITHOUT ESOPHAGITIS Comment : - Continue omeprazole (5) DVT prophylaxis Comment: - Heparin SQ (6) Full code status Code(s): Z78.9 - OTHER SPECIFIED HEALTH STATUS Comment: Status and Disposition: Observation for IV antibiotics. Anticipate d/c home with son when cellulitis has improved. Attending: Nayana Phillips
[2018-03-20] MEDS: Donepezil TAB* 5 MG PO SCH (20:59)
[2018-03-21] MEDS: ZOSYN 3.375 GM Q8H per EXTENDED INFUSION IVPB SCH ×6 (02:57→18:04)
[2018-03-21] MEDS: Heparin VIAL(*) 5000 UNITS/ML VIAL (FIVE THOUSAND) SUBCUT SCH ×3 (05:25→22:01)
[2018-03-21] MEDS: Aspirin EC TAB* 81 MG TAB.EC PO SCH (08:43)
[2018-03-21] MEDS: Lisinopril TAB* 10 MG PO SCH (08:44)
[2018-03-21] MEDS: Pantoprazole TAB * 40 MG TAB PO SCH (08:44)
[2018-03-21] MEDS: Hydrochlorothiazide TAB* 25 MG PO SCH (08:44)
[2018-03-21] MEDS: Multivitamins/Minerals TAB PO SCH (08:44)
[2018-03-21] MEDS: Cilostazol TAB* 100 MG PO SCH (08:44)
[2018-03-21] MEDS: NFT: Mirabegron (NF) 25 MG TAB PO SCH (09:01)
--- NOTE | 2018-03-21 14:50 | PN ---
Subjective Date of Service: 03/21/18 Interval History: Ms. Wright is feeling well today. She offers no complaints. Again, she is a poor historian, but reports that she previously (about 5 years ago) had a wound to her lateral right lower leg which took approx 6 months to heal. She is anxious to return home. Denies CP, SOB, N/V/D. Family History: Unchanged from Admission Social History: Unchanged from Admission Past Medical History: Unchanged from Admission Objective Active Medications: Acetaminophen (Tylenol Tab*) 650 mg PO Q4H PRN FEVER/PAIN Aspirin (Aspirin Ec Tab*) 81 mg PO DAILY [facility] Cilostazol (Pletal Tab*) 50 mg PO DAILY [facility] Donepezil HCl (Aricept Tab*) 5 mg PO BEDTIME [facility] Heparin Sodium (Porcine) (Heparin Vial(*)) 5,000 units SUBCUT Q8HR [facility] Hydrochlorothiazide (Hydrodiuril Tab*) 25 mg PO DAILY [facility] Piperacillin Sod/Tazobactam (Sod 3.375 gm/ Sodium Chloride) 100 mls @ 25 mls/ hr IVPB Q8H [facility] Lisinopril (Prinivil Tab*) 10 mg PO DAILY [facility] Loperamide HCl (Imodium Cap*) 2 mg PO BID PRN DIARRHEA Mirabegron (Myrbetriq (Nf)) 25 mg PO QAM [facility] Multivitamins/Minerals (Theragran/Minerals Tab*) 1 tab PO DAILY [facility] Pantoprazole Sodium (Protonix Tab *) 40 mg PO QAM [facility] Pharmacy Consult (Zosyn Per Pharmacy*) 1 note FOLLOW UP .ZOSYN PER PHARMACY [facility] Vital Signs - 8 hr 03/21/18 03/21/18 08:24 11:04 Temperature 98.0 F 97.8 F Pulse Rate 61 83 Respiratory 18 18 Rate Blood Pressure 158/63 125/75 (mmHg) O2 Sat by Pulse 98 99 Oximetry Oxygen Devices in Use Now: None Appearance: Elderly female sitting in bed in NAD Eyes: No Scleral Icterus Ears/Nose/Mouth/Throat: Mucous Membranes Moist Neck: NL Appearance and Movements; NL JVP, Trachea Midline Respiratory: Symmetrical Chest Expansion and Respiratory Effort, Clear to Auscultation Cardiovascular: NL Sounds; No Murmurs; No JVD, RRR Abdominal: NL Sounds; No Tenderness; No Distention Extremities: - - +2 pitting to RLE Skin: - - Wound and erythema to RLE Neurological: Alert and Oriented x 3, NL Sensation, - - Forgetful Lines/Tubes/Other Access: Clean, Dry and Intact Peripheral IV Nutrition: Taking PO's Result Diagrams: 03/20/18 06:24 03/20/18 06:24 Assess/Plan/Problems-Billing Assessment: Ms. Wright is an 87 yo female with PMH of PVD, HTN, and GERD who presented to the ED with c/o redness and a non-healing wound to the RLE and was found to have cellulitis, failing outpatient therapy. - Patient Problems (1) Cellulitis of right lower leg Code(s): L03.115 - CELLULITIS OF RIGHT LOWER LIMB Comment: - Failed outpatient therapy on Cefdinir; has also been on Levaquin and clinda in the last 2 months, but it is unclear if this was for cellulitis - Non-healing wound secondary to PVD; has history of non-healing wound to LLE - Erythema and edema to right ankle, improving; wound to lateral right lower leg dressed with gauze - No evidence of DVT on US - Continue Zosyn (2) PVD (peripheral vascular disease) Code(s): I73.9 - PERIPHERAL VASCULAR DISEASE, UNSPECIFIED Comment: - Continue Pletal (3) Hypertension Code(s): I10 - ESSENTIAL (PRIMARY) HYPERTENSION Comment: - Stable, with SBP 110-150s - Continue lisinopril, HCTZ (4) GERD (gastroesophageal reflux disease) Code(s): K21.9 - GASTRO-ESOPHAGEAL REFLUX DISEASE WITHOUT ESOPHAGITIS Comment : - Continue omeprazole (5) DVT prophylaxis Comment: - Heparin SQ (6) Full code status Code(s): Z78.9 - OTHER SPECIFIED HEALTH STATUS Comment: Status and Disposition: Inpatient for IV antibiotics. Anticipate d/c home with son when cellulitis has improved, likely tomorrow. Attending: Nayana Phillips
[2018-03-21] MEDS: Donepezil TAB* 5 MG PO SCH (22:01)
[2018-03-22] MEDS: ZOSYN 3.375 GM Q8H per EXTENDED INFUSION IVPB SCH ×4 (02:26→10:41)
[2018-03-22] MEDS: Heparin VIAL(*) 5000 UNITS/ML VIAL (FIVE THOUSAND) SUBCUT SCH ×2 (06:35→13:41)
[2018-03-22 07:19] LABS: Calcium 9.2 mg/dL (8.6-10.3); Potassium 3.9 mmol/L (3.5-5.0)
[2018-03-22] MEDS: Pantoprazole TAB * 40 MG TAB PO SCH (09:00)
[2018-03-22] MEDS: Lisinopril TAB* 10 MG PO SCH (09:00)
[2018-03-22] MEDS: Multivitamins/Minerals TAB PO SCH (09:00)
[2018-03-22] MEDS: Aspirin EC TAB* 81 MG TAB.EC PO SCH (09:00)
[2018-03-22] MEDS: Hydrochlorothiazide TAB* 25 MG PO SCH (09:00)
[2018-03-22] MEDS: Cilostazol TAB* 100 MG PO SCH (09:00)
[2018-03-22] MEDS: NFT: Mirabegron (NF) 25 MG TAB PO SCH (09:04)
[2018-03-22 12:23] VITALS: BP 111/59
--- NOTE | 2018-03-22 22:48 | DS ---
CC: [facility].* DISCHARGE SUMMARY: DATE OF ADMISSION: 03/19/18 DATE OF DISCHARGE: 03/22/18 PRIMARY CARE PROVIDER: Dr. Tiffany Bishop. MY ATTENDING WHILE IN THE HOSPITAL: Dr. Nayana Phillips.* (DICTATED BY LAUREN ROMO) PRIMARY DISCHARGE DIAGNOSIS: Right lower leg cellulitis. SECONDARY DISCHARGE DIAGNOSES: 1. Peripheral vascular disease. 2. Nonhealing ulcer on the right lower extremity. 3. Hypertension. 4. Gastroesophageal reflux disease. 5. History of breast cancer. 6. Osteoarthritis. 7. Anxiety and depression. 8. Agoraphobia. STUDIES DONE WHILE IN THE HOSPITAL: Venous Doppler study from 03/19/18 shows no evidence for right lower extremity edema and deep vein thrombosis. Electrocardiogram shows normal sinus rhythm with frequent PACs, rate of 86. QTc calculated manually to be 450 msec. Normal axis. No hypertrophy or enlargement. No other ST-segment abnormalities compared to previous exam. PACs are new. MEDICATIONS AT DISCHARGE: 1. Omeprazole 20 mg p.o. daily. 2. Hydrochlorothiazide 25 mg p.o. daily. 3. Cilostazol 50 mg p.o. daily to be resumed after ciprofloxacin. 4. Myrbetriq 25 mg p.o. q.a.m. 5. Aspirin 81 mg p.o. daily. 6. Centrum Silver Women's 1 tab p.o. daily. 7. Singulair 10 mg p.o. daily. 8. Loperamide 2 mg p.o. b.i.d. as needed. 9. Lisinopril 10 mg p.o. daily. 10. Tylenol 650 mg p.o. q.6 hours as needed. 11. Ciprofloxacin 500 mg p.o. b.i.d. x10 doses. MEDICATIONS DISCONTINUED ON DISCHARGE: Donepezil. HOSPITAL COURSE: This is a brief summary of the patient's presentation. For more details, please see the history and physical from Yuko Meraz NP 09/28. In brief, the patient is an 87-year-old female with a past medical history significant for the above; who presented to the emergency department from the [facility]ound Clinic for increased swelling and erythema of the right lower extremity. The patient had been on cefdinir. The patient had a previous wound culture which grew Pseudomonas aeruginosa, Finegoldia magna, and Enterobacter. The patient was treated with cefdinir without success. The patient upon presentation to the hospital had no white count, no fever, no tachycardia. The patient did have significant redness and swelling of her right lower extremity. The patient had no lower extremity DVT. The patient was started on Zosyn. On Zosyn, the patient's lower extremity erythema improved slowly. The patient had no other significant abnormalities while in the hospital and stated that she felt better. The patient was stable and amenable for discharge on . Due to Pseudomonas aeruginosa growing from the patient's culture, the patient's only antibiotic choice for oral therapy was ciprofloxacin. Due to concerns for QT prolongation, the patient's Pletal was stopped as was her donepezil. However, it came to light that the patient had not been taking her donepezil at home. The patient's son lives upstairs from her and does her dressing changes and this was to be continued at discharge. PHYSICAL EXAMINATION ON THE DATE OF DISCHARGE: General: The patient is an 87- year- old female who appears stated age and sitting comfortably in bed, in no acute distress. HEENT: Head normocephalic and atraumatic. Sclerae anicteric. No conjunctival injection. Nasal mucosa moist. Oral mucosa moist. No oropharyngeal erythema, discharge, or exudate. Neck: Supple, nontender. No lymphadenopathy. No carotid bruits auscultated and no JVD. Cardiac: Regular rate and rhythm. No clicks, murmurs, gallops, or rubs. Pulses 1+ in bilateral dorsalis pedis and posterior tibialis areas. Pulses 2+ in bilateral radial areas. Respiratory: Clear to auscultation bilaterally. No wheezes or rhonchi. Good air exchange bilaterally. Abdomen: Soft, nontender, and nondistended. Bowel sounds present and normoactive in all 4 quadrants. No hepatosplenomegaly. No abdominal bruits auscultated. No hepatojugular reflux. Genitourinary: No suprapubic or CVA tenderness. Skin: Right lower extremity covered in a bulky dressing, not removed due to scheduling of dressing changes. Neuro: Cranial nerves II through XII intact. No focal deficits. Alert and oriented to self only. DISCHARGE PLAN: The patient will be discharged to home. The patient will have care from her son who lives in the apartment above her, who will do her dressing changes every 3 days. The patient has sufficient supplies for this at home. The patient will be continued on ciprofloxacin to complete a 7-day course of antibiotics for lower extremity cellulitis. The patient is currently improving and has no signs of systemic toxicity. The patient will continue to follow with the wound clinic and she will follow up with her primary care provider within 1 week for general medical management and to assess for worsening in her clinical status on oral antibiotics. The patient should continue with outpatient workup for peripheral vascular disease and possible need for revascularization. The patient's son states that she had an GILLIAN on her left leg and that should continue on her right when possible. The patient should return to the hospital for high fevers, chest pain, shortness of breath, passing out or other alarming symptoms. The patient should have a heart- healthy diet without caffeine, engage in activity as tolerated. TIME SPENT: Approximately 60 minutes was spent on the discharge of this patient , 30 of which was spent [id number] with the patient obtaining history and physical and discussing treatment plan. LAUREN ROMO [id number]/[facility] #: [id number] [facility]
== END 2018-03-22 15:45 | disposition home or self-care (01) | DRG 603 ==
LOC: ED 11:39 → MED 15:59 → OBSVTOIN 03-20 16:00
PROVIDERS: ADMIT Internal Medicine; ATTEND Internal Medicine
DX: L03.115 Cellulitis of right lower limb (principal); L97.919 Non-pressure chronic ulcer of unspecified part of right lower leg with unspecified severity; I73.9 Peripheral vascular disease, unspecified; I10 Essential (primary) hypertension; K21.9 Gastro-esophageal reflux disease without esophagitis; M19.90 Unspecified osteoarthritis, unspecified site; F32.9 Major depressive disorder, single episode, unspecified; F41.9 Anxiety disorder, unspecified; F40.00 Agoraphobia, unspecified; I49.1 Atrial premature depolarization; K57.90 Diverticulosis of intestine, part unspecified, without perforation or abscess without bleeding; N32.81 Overactive bladder; Z90.89 Acquired absence of other organs; I45.81 Long QT syndrome; Z88.2 Allergy status to sulfonamides; Z85.3 Personal history of malignant neoplasm of breast; Z79.82 Long term (current) use of aspirin; Z91.011 Allergy to milk products; Z92.3 Personal history of irradiation; Z98.42 Cataract extraction status, left eye; B96.5 Pseudomonas (aeruginosa) (mallei) (pseudomallei) as the cause of diseases classified elsewhere; Z98.41 Cataract extraction status, right eye; Z80.3 Family history of malignant neoplasm of breast; Z72.89 Other problems related to lifestyle; Z87.891 Personal history of nicotine dependence
CPT/HCPCS: 36415; 80048; 80053; 81003; 83605; 83735; 84550; 85025; 85652; 86140; 87040; 87070; 87076; 87077; 87186; 87205; 87640; 87641; 90686; 93005; 99284; A9270-GY; G0378; J1644; J2185; J2543

== ENCOUNTER 2019-03-10 10:54 | Emergency (ER) | payer MEDICARE ==
[2019-03-10 11:29] VITALS: BP 109/80
--- NOTE | 2019-03-10 12:20 | UC ---
UC General HPI - HPI Summary HPI Summary: 88-year-old woman comes in with a chief complaint of increased urinary frequency and urgency. Patient does have some dementia. She's been having diarrhea for about 4 days. No fevers measured. Patient fell this morning while cleaning up some stool on the floor. The daughter states she did strike her head. She is not on any blood thinners. Patient does not complain of any headache or any focal neurologic deficits. - History of Current Complaint Chief Complaint: UCGI Stated Complaint: BURNING URINATION, AND MOOD ALTERATION Time Seen by Provider: 03/10/19 11:47 Pain Intensity: 0 - Allergy/Home Medications Allergies/Adverse Reactions: Allergies Allergy/AdvReac Type Severity Reaction Status Date / Time lactose Allergy GI Upset Verified 03/19/18 11:57 Sulfa (Sulfonamide Allergy Swelling Verified 03/19/18 11:57 Antibiotics) Of Face,Lips,& Throat PMH/Surg Hx/FS Hx/Imm Hx Previously Healthy: Yes - DEMENTIA,URINARY INCONTINENCE Cardiovascular History: Hypertension GI/ History: Gastroesophageal Reflux - Surgical History Surgical History: Yes Surgery Procedure, Year, and Place: LEFT BREAST CA [place]OMY, [place] [facility] [place] VERICOSE VEINS BILAT, 1996 AND 2001. APPENDECTOMY 1934. LALITA HERNIA 1973. LALITA CATARACTS, 2003. Tonsillectomy - 1935; double hernia (right side) 2014. CARDIAC CATH - NO STENTS -2004 @ [facility] [place] shoulder - Family History Known Family History: Positive: Other - Breast Cancer - Social History Alcohol Use: Daily Alcohol Amount: 2 DAILY Substance Use Type: None Smoking Status (MU): Former Smoker Amount Used/How Often: PACK A DAY Have You Smoked in the Last Year: No When Did the Patient Quit Smoking/Using Tobacco: 1996 - Immunization History Most Recent Influenza Vaccination: 03/22/18 Most Recent Pneumonia Vaccination: within last 5 years Review of Systems All Other Systems Reviewed And Are Negative: Yes Constitutional: Positive: Other - SEE HPI Skin: Positive: Negative Eyes: Positive: Negative ENT: Positive: Negative Respiratory: Positive: Negative Cardiovascular: Positive: Negative Gastrointestinal: Positive: Diarrhea, Other - SEE HPI Genitourinary: Positive: Frequency, Urgency Motor: Positive: Other - SEE HPI Neurovascular: Positive: Negative Musculoskeletal: Positive: Edema - CHRONIC Neurological: Positive: Other - SEE HPI Psychological: Positive: Negative Is Patient Immunocompromised?: No Physical Exam Triage Information Reviewed: Yes Completion Of Physical Exam Limited Due To: Dementia Appearance: Well-Appearing, No Pain Distress, Well-Nourished Vital Signs: Initial Vital Signs Temp 97.6 F 03/10/19 11:22 Pulse 53 03/10/19 11:22 Resp 19 03/10/19 11:22 BP 109/80 03/10/19 11:22 Pulse Ox 97 03/10/19 11:22 Vital Signs Reviewed: Yes Eye Exam: Normal Eyes: Positive: Conjunctiva Clear ENT: Positive: Pharynx normal Neck: Positive: Supple Respiratory: Positive: Lungs clear, Normal breath sounds, No respiratory distress Cardiovascular: Positive: RRR Abdomen Description: Positive: Other: - Mild tenderness to palpation in the suprapubic region.. Negative: CVA Tenderness (R), CVA Tenderness (L) Bowel Sounds: Positive: Present Musculoskeletal: Positive: Strength Intact, ROM Intact, Edema @ - Bilateral chronic. Neurological: Positive: Alert - Alert and awake. Patient does have mild dementia., Other: - Symmetric smile moving both arms and legs no focal neurologic deficit appreciated. Psychological: Positive: Normal Response To Family - Family reports normal behavior other than the falls and some generalized weakness. Skin Exam: Normal Course/Dx - Course Course Of Treatment: In clinic the patient does not appear ill. She has leukocytes in blood in the urine we will treat for urinary tract infection with Keflex 500 mg by mouth 3 times a day for 5 days. Patient sent home with a stool sample kit to better help determine the cause of the diarrhea. Also CBC CMP and lipase are pending. Plan is have the patient follow up with her primary care physician tomorrow. Patient was mildly tender to palpation over the suprapubic region which may very well be due to a urinary tract infection however we have not ruled out an abdominal process such as diverticulitis. This was all discussed with the patient and her daughter. We discussed that if anything got worse the patient is to go to the emergency department right away. - Diagnoses Provider Diagnosis: UTI (urinary tract infection), Acute diarrhea, Abdominal pain Discharge ED - Sign-Out/Discharge Documenting (check all that apply): Patient Departure All imaging exams completed and their final reports reviewed: No Studies - Discharge Plan Condition: Stable Disposition: HOME Prescriptions: Cephalexin CAP* [Keflex CAP*] 500 mg PO TID #15 cap Patient Education Materials: Urinary Tract Infection in Women (ED), Acute Diarrhea (ED), Acute Abdominal Pain (ED) Referrals: Tiffany Bishop MD [Primary Care Provider] - Additional Instructions: FOLLOW UP WITH YOUR DOCTOR TOMORROW, 03/11/19. GO TO THE EMERGENCY DEPARTMENT IF WORSE; PAIN, FEVER, ILL APPEARANCE, CONFUSION OR ANY QUESTIONS OR CONCERNS. - Billing Disposition and Condition Condition: STABLE Disposition: Home
[2019-03-11 11:18] LABS: ABS Eosinophils 0.1 10^3/ul (0-0.6); ABS Monocytes 0.8 10^3/ul (0-0.8); ABS Neutrophils 9.5 10^3/ul (1.5-7.7); Eosinophil % 0.7 %; Hematocrit 37 % (35-47); Lymphocyte % 8.7 %; Mean Corpuscular HGB Conc 33 g/dL (31-36); Mean Corpuscular Hemoglobin 33 pg (27-31); Mean Corpuscular Volume 99 fL (80-97); Mean Platelet Volume 9.9 fL (7.4-10.4); Nucleated Red Blood Cells % 0.2; Platelet Count 222 10^3/uL (150-450); Red Blood Count 3.68 10^6 /uL (3.70-4.87); Red Cell Distribution Width 14 % (10-15); White Blood Count 11.4 10^3/uL (3.5-10.8)
[2019-03-11 11:53] LABS: Albumin 3.4 g/dL (3.2-5.2); Calcium 9.4 mg/dL (8.6-10.3); Potassium 4.5 mmol/L (3.5-5.0); Total Bilirubin 0.4 mg/dL (0.2-1.0)
[2019-03-11 12:00] LABS: Albumin/Globulin Ratio 1.3 (1-3); BUN/Creatinine Ratio 30.4 (8-20); EGFR African American 61.7 (>60); Globulin 2.6 g/dL (2-4)
--- NOTE | 2019-03-11 15:34 | UC ---
- Progress Note Progress Note: CBC reviewed - mild WBC elevation at 11.4. - Could be from UTI. CMP baseline for pt. Please call pt and make sure she followed up with PCP as advised at UC visit Course/Dx - Diagnoses Provider Diagnoses: UTI (urinary tract infection), Acute diarrhea, Abdominal pain Discharge ED - Sign-Out/Discharge Documenting (check all that apply): Post-Discharge Follow Up All imaging exams completed and their final reports reviewed: No Studies - Discharge Plan Condition: Stable Disposition: HOME Prescriptions: Cephalexin CAP* [Keflex CAP*] 500 mg PO TID #15 cap Patient Education Materials: Urinary Tract Infection in Women (ED), Acute Diarrhea (ED), Acute Abdominal Pain (ED) Referrals: Tiffany Bishop MD [Primary Care Provider] - Additional Instructions: FOLLOW UP WITH YOUR DOCTOR TOMORROW, 03/11/19. GO TO THE EMERGENCY DEPARTMENT IF WORSE; PAIN, FEVER, ILL APPEARANCE, CONFUSION OR ANY QUESTIONS OR CONCERNS. - Billing Disposition and Condition Condition: STABLE Disposition: Home
--- NOTE | 2019-03-12 14:57 | UC ---
- Progress Note Progress Note: Urine culture revealed no growth. May stop anbx. If not improved should f/u with PCP Course/Dx - Diagnoses Provider Diagnoses: UTI (urinary tract infection), Acute diarrhea, Abdominal pain Discharge ED - Sign-Out/Discharge Documenting (check all that apply): Post-Discharge Follow Up All imaging exams completed and their final reports reviewed: No Studies - Discharge Plan Condition: Stable Disposition: HOME Prescriptions: Cephalexin CAP* [Keflex CAP*] 500 mg PO TID #15 cap Patient Education Materials: Urinary Tract Infection in Women (ED), Acute Diarrhea (ED), Acute Abdominal Pain (ED) Referrals: Tiffany Bishop MD [Primary Care Provider] - Additional Instructions: FOLLOW UP WITH YOUR DOCTOR TOMORROW, 03/11/19. GO TO THE EMERGENCY DEPARTMENT IF WORSE; PAIN, FEVER, ILL APPEARANCE, CONFUSION OR ANY QUESTIONS OR CONCERNS. - Billing Disposition and Condition Condition: STABLE Disposition: Home
== END 2019-03-10 12:55 | disposition home or self-care (01) ==
LOC: UCEAST 10:54
DX: N39.0 Urinary tract infection, site not specified (principal); R10.9 Unspecified abdominal pain; R19.7 Diarrhea, unspecified; I10 Essential (primary) hypertension; Z96.611 Presence of right artificial shoulder joint; Z87.891 Personal history of nicotine dependence; Z88.2 Allergy status to sulfonamides; Z91.011 Allergy to milk products
CPT/HCPCS: 36415; 80053; 81003; 83690; 85025; 87086; 99212; G0463